=== PATIENT | male | born 1935 | race Caucasian/White ===

== ENCOUNTER 2017-12-20 11:39 | Emergency (ER) | payer MEDICARE ==
[2017-12-20 12:00] VITALS: RESP 18; TEMP 98.5; O2SAT 98
[2017-12-20] MEDS ORDERED: Sodium Chloride 0.9% 500 ML IV ONE (13:11)
[2017-12-20] MEDS ORDERED: Sodium Chloride 0.9% 1,000 ML ONE (13:27)
[2017-12-20 13:39] LABS: BASO % 0.5 % (0.0-2.0); EOS # 0.1 K/uL (0.0-0.7); EOS % 0.9 % (0.0-4.0); HEMOGLOBIN 13.2 g/dL (12.0-18.0); LYMPH # 0.5 K/uL (1.0-4.3); MEAN CELL VOLUME 85.7 fL (80.0-94.0); MEAN CORPUSCULAR HEMOGLOBIN 30.7 pg (27.0-31.0); MEAN CORPUSCULAR HGB CONC 35.8 g/dL (33.0-37.0); MEAN PLATELET VOLUME 8.9 fL (7.2-11.7); MONO # 0.5 K/uL (0.0-0.8); NEUT # 6.5 K/uL (1.8-7.0); NEUT % 84.6 % (50.0-75.0); NRBC % 0.1 % (0.0-2.0); PLATELET COUNT 140 K/uL (130-400); RBC 4.29 Mil/uL (4.40-5.90); RED CELL DISTRIBUTION WIDTH 14.3 % (11.5-14.5); WHITE BLOOD COUNT 7.6 K/uL (4.8-10.8)
[2017-12-20 13:44] LABS: SQUAMOUS EPITHIAL < 1 /hpf (0-5); URINE BILIRUBIN NEGATIVE (NEGATIVE); URINE BLOOD 2+ (NEGATIVE); URINE CLARITY Hazy (Clear); URINE COLOR Amber (YELLOW); URINE GLUCOSE (UA) 1+ mg/dL (Normal); URINE LEUKOCYTE ESTERASE NEG Leu/uL (Negative); URINE PROTEIN 1+ mg/dL (NEGATIVE)
[2017-12-20 13:55] LABS: ALB/GLOB RATIO 1.3 (1.0-2.1); ALBUMIN 3.7 g/dL (3.5-5.0); ALT/SGPT 30 U/L (21-72); AST/SGOT 19 U/L (17-59); BLOOD UREA NITROGEN 15 mg/dL (9-20); CALCIUM 8.6 mg/dl (8.6-10.4); GFR NON-AFRICAN AMERICAN > 60; LIPASE 29 U/L (23-300)
--- NOTE | 2017-12-20 14:21 | C.PDOC ---
History Of Present Illness 82-year-old male, presents to the emergency department with complaints of three- day duration of right-mid back pain that radiates to the right ribs . Patient denies any nausea/vomiting, fever, chills, chest pain, shortness of breath or any other associated symptoms. No other complaints at this time. Time Seen by Provider: 12/20/17 12:23 Chief Complaint (Nursing): Back Pain History Per: Patient History/Exam Limitations: no limitations Onset/Duration Of Symptoms: Days Current Symptoms Are (Timing): Still Present Severity: Moderate Associated Symptoms: denies: Incontinence, New Weakness, New Numbness Exacerbating Factor(s): Movement, Standing Recent travel outside of the [place]: No Past Medical History Reviewed: Historical Data, Nursing Documentation, Vital Signs Vital Signs: Last Vital Signs Temp 98.5 F 12/20/17 11:57 Pulse 91 H 12/20/17 11:57 Resp 18 12/20/17 11:57 BP 121/72 12/20/17 11:57 Pulse Ox 98 12/20/17 11:57 - Medical History PMH: Arthritis (bilateral knee/leg) Family History: States: No Known Family Hx - Social History Hx Alcohol Use: Yes Hx Substance Use: No - Immunization History Hx Tetanus Toxoid Vaccination: No Hx Influenza Vaccination: Yes Hx Pneumococcal Vaccination: No Review Of Systems Constitutional: Negative for: Fever, Chills Eyes: Negative for: Pain ENT: Negative for: Ear Pain Cardiovascular: Negative for: Chest Pain, Palpitations Respiratory: Negative for: Shortness of Breath Gastrointestinal: Negative for: Nausea, Vomiting, Abdominal Pain Genitourinary: Negative for: Dysuria, Frequency, Hematuria Musculoskeletal: Positive for: Back Pain Skin: Negative for: Rash Neurological: Negative for: Weakness, Numbness Physical Exam - Physical Exam Appears: Non-toxic, No Acute Distress Skin: Warm, Dry, No Rash Head: Atraumatic, Normacephalic Eye(s): bilateral: Normal Inspection, PERRL, EOMI Nose: Normal Oral Mucosa: Moist Lips: Normal Appearing Neck: Normal ROM, No Midline Cervical Tenderness, No Paracervical Tenderness Chest: Symmetrical, No Tenderness Cardiovascular: Rhythm Regular, No Friction Rub, No Murmur Respiratory: Normal Breath Sounds, No Accessory Muscle Use, No Stridor, No Wheezing Gastrointestinal/Abdominal: Soft, No Tenderness, No Guarding, No Rebound Back: No CVA Tenderness, No Vertebral Tenderness, Paraspinal Tenderness (right, lumbar) Extremity: Normal ROM, No Deformity, No Swelling Neurological/Psych: Oriented x3, Normal Speech, Normal Motor Gait: Steady ED Course And Treatment - Laboratory Results Result Diagrams: 12/20/17 13:26 12/20/17 13:26 O2 Sat by Pulse Oximetry: 98 Pulse Ox Interpretation: Normal (RA) Medical Decision Making Medical Decision Making: On re-exam, the patient reports improvement of symptoms. Lungs are CTA, heart is RRR, abdomen is soft, non-tender and tolerating PO well. Patient is ambulatory in the ED with steady gait. Disposition - Disposition Referrals: James Houston MD [Staff Provider] - Disposition: HOME/ ROUTINE Disposition Time: 15:00 Condition: GOOD Additional Instructions: Follow up with the medical doctor within 1-2 days. Return if worsened. Prescriptions: Acetaminophen [Tylenol] 325 mg PO Q6 PRN #30 tab PRN Reason: Pain, Mild (1-3) Instructions: Low Back Pain in Adults Forms: [employer] (Norwegian) - Clinical Impression Clinical Impression: Low back pain - Scribe Statement The provider has reviewed the documentation as recorded by the Scribe (Cristiana Carmona) All medical record entries made by the Scribe were at my direction and personally dictated by me. I have reviewed the chart and agree that the record accurately reflects my personal performance of the history, physical exam, medical decision making, and the department course for this patient. I have also personally directed, reviewed, and agree with the discharge instructions and disposition.
--- NOTE | 2017-12-20 14:28 | RAD ---
Date of service: 12/20/2017 HISTORY: epig/RUQ abd pain COMPARISON: No prior. FINDINGS: LUNGS: No active pulmonary disease. PLEURA: No significant pleural effusion identified, no pneumothorax apparent. CARDIOVASCULAR: Normal. OSSEOUS STRUCTURES: No significant abnormalities. VISUALIZED UPPER ABDOMEN: Normal. OTHER FINDINGS: None. IMPRESSION: No active disease.
--- NOTE | 2017-12-20 14:34 | US ---
Date of service: 12/20/2017 HISTORY: RUQ abd pain COMPARISON: None available. TECHNIQUE: Sonographic evaluation of the right upper quadrant of the abdomen. FINDINGS: Examination limited by bowel gas. LIVER: Measures 14.6 cm in length. Numerous hepatic cysts identified with the largest in the left hepatic lobe measuring approximately 1.9 cm and 2.5 cm and largest within the right hepatic lobe measuring 2.9 cm and 1.5 cm. The main portal vein appears patent with normal directional flow no intrahepatic bile duct dilatation. GALLBLADDER: No gallstones. No gallbladder wall thickening or pericholecystic edema. Negative sonographic Lopez's sign as assessed by the manager php. COMMON BILE DUCT: Measures 5 mm. PANCREAS: Not well-visualized. RIGHT KIDNEY: Measures 10.5 x 4.6 x 4.7 cm. Nonobstructing calculus measuring approximately 3 mm right mid/lower pole. AORTA: Limited visualization appears grossly unremarkable. IVC: Limited visualization appears grossly unremarkable. OTHER FINDINGS: None . IMPRESSION: Limited study. Numerous hepatic cysts as above. 3 mm right mid/lower pole calculus. No hydronephrosis.
[2017-12-20 14:59] LABS: BANDS 2 % (0-2); LYMPHOCYTE 6 % (20-40); MONOCYTE 3 % (0-10); NEUTROPHIL 89 % (50-75); TOTAL CELLS COUNTED 100
[2017-12-20 15:00] LABS: PLATELET ESTIMATE NORMAL (NORMAL)
[2017-12-20 15:34] VITALS: BP 124/83; PULSE 68
== END 2017-12-20 15:34 | disposition home or self-care (01) ==
LOC: C.ER 11:39
DX: M54.5 Low back pain (principal)
CPT/HCPCS: 71045; 76705; 80053; 81001; 83690; 85025; 87086; 96361; 96374; 99284; J2405; J7040

== ENCOUNTER 2018-03-25 08:18 | Inpatient (IN) | payer MEDICARE ==
--- NOTE | 2018-03-25 09:17 | RAD ---
Date of service: 03/25/2018 HISTORY: Cough COMPARISON: 12/20/2017. TECHNIQUE: Chest PA and lateral FINDINGS: LINES AND TUBES: None. LUNG AND PLEURA: There is airspace disease in the right upper. There is subsegmental atelectasis, mucous plugging and bronchial thickening in the right lower lobe. There is subsegmental atelectasis in the left lower lobe with bronchial thickening the lungs are hyperinflated and there is peribronchial thickening with chronic changes in both lungs. No pleural effusion or pneumothorax. HEART AND MEDIASTINUM: The heart is not enlarged. No aortic atherosclerotic calcifications present. The hilar and mediastinal contours are within normal limits. SKELETAL STRUCTURES: The bony structures are within normal limits for the patient's age. VISUALIZED UPPER ABDOMEN: Normal. OTHER FINDINGS: None. IMPRESSION: Right upper lobe pneumonia. Right lower lobe subsegmental atelectasis and mucous plugging however superimposed pneumonia cannot be excluded. Follow-up after medical management is recommended to ensure complete resolution. Background of COPD.
[2018-03-25] MEDS ORDERED: Azithromycin 500mg/250ML NS 500 MG/250 ML BAG IV STA (09:28)
[2018-03-25] MEDS ORDERED: cefTRIAXone IV 1 gm in Dextros 50 ML IV STA (09:28)
--- NOTE | 2018-03-25 10:04 | C.PDOC ---
History Of Present Illness 83 year old male with no past medical history presents to the ED for evaluation of nasal congestion, rhinorrhea, coughing, and generally not feeling well for 2 weeks. The patient reports prior PMD visit who prescribed cough syrup with no improvement in symptoms. Denies shortness of breath, fever, chills, and any other associated symptoms. Time Seen by Provider: 03/25/18 08:38 Chief Complaint (Nursing): Shortness Of Breath History Per: Patient History/Exam Limitations: no limitations Onset/Duration Of Symptoms: Days (x2 weeks. ) Current Symptoms Are (Timing): Still Present Recent travel outside of the [place]: No Past Medical History Reviewed: Historical Data, Nursing Documentation, Vital Signs Vital Signs: Last Vital Signs Temp 98 F 03/25/18 08:23 Pulse 118 H 03/25/18 08:23 Resp 23 03/25/18 08:56 BP Pulse Ox 95 03/25/18 08:56 - Medical History PMH: Arthritis (bilateral knee/leg) Family History: States: Unknown Family Hx - Social History Hx Alcohol Use: Yes Hx Substance Use: No - Immunization History Hx Tetanus Toxoid Vaccination: No Hx Influenza Vaccination: Yes Hx Pneumococcal Vaccination: No Review Of Systems Except As Marked, All Systems Reviewed And Found Negative. Constitutional: Positive for: Other (generally not feeling well. ). Negative for: Fever, Chills ENT: Positive for: Nose Discharge, Nose Congestion Respiratory: Positive for: Cough Physical Exam - Physical Exam Appears: Well, Non-toxic, No Acute Distress Skin: Normal Color, Warm, Dry Head: Atraumatic, Normacephalic Eye(s): bilateral: Normal Inspection Oral Mucosa: Moist Neck: Normal ROM, Supple Chest: Symmetrical, No Deformity Cardiovascular: Rhythm Regular, No Murmur Respiratory: Decreased Breath Sounds (greater on the right lung. ), No Rales, No Rhonchi, No Wheezing, Other ((+) tachycardia.) Gastrointestinal/Abdominal: Normal Exam, Soft, No Tenderness Extremity: Bilateral: Atraumatic, Normal Color And Temperature, Normal ROM Neurological/Psych: Oriented x3, Normal Speech, Normal Cognition ED Course And Treatment - Laboratory Results Result Diagrams: 03/25/18 10:07 03/25/18 10:07 O2 Sat by Pulse Oximetry: 95 (RA) Pulse Ox Interpretation: Normal - Other Rad CXR X-Ray: Viewed By Me, Read By Radiologist Interpretation: FINDINGS: LINES AND TUBES: None. LUNG AND PLEURA: There is airspace disease in the right upper. There is subsegmental atelectasis, mucous plugging and bronchial thickening in the right lower lobe. There is subsegmental atelectasis in the left lower lobe with bronchial thickening the lungs are hyperinflated and there is peribronchial thickening with chronic changes in both lungs. No pleural effusion or pneumothorax. HEART AND MEDIAS TINUM: The heart is not enlarged. No aortic atherosclerotic calcifications present. The hilar and mediastinal contours are within normal limits. SKELETAL STRUCTURES: The bony structures are within normal limits for the patient's age. VISUALIZED UPPER ABDOMEN: Normal. OTHER FINDINGS: None. IMPRESSION: Right upper lobe pneumonia. Right lower lobe subsegmental atelectasis and mucous plugging however superimposed pneumonia cannot be excluded. Follow-up after medical management is recommended to ensure complete resolution. Background of COPD. Medical Decision Making Medical Decision Making: Plan: -Blood sent. -CXR -Blood culture -Zithromax -Rocephin -Urinalysis Progress/Update: Treated for pneumonia, spoke with , patient was accepted for an admission. Disposition - Disposition Disposition: HOSPITALIZED Disposition Time: 10:50 Condition: FAIR - Clinical Impression Clinical Impression: Pneumonia - PA / APPRENTICE PLANT ATTENDANT / Resident Statement MD/DO has reviewed & agrees with the documentation as recorded. - Scribe Statement The provider has reviewed the documentation as recorded by the Scribe (Chio Bearden) All medical record entries made by the Scribe were at my direction and personally dictated by me. I have reviewed the chart and agree that the record accurately reflects my personal performance of the history, physical exam, medical decision making, and the department course for this patient. I have also personally directed, reviewed, and agree with the discharge instructions and disposition. Decision To Admit - Pt Status Changed To: Hospital Disposition Of: Inpatient - Admit Certification Admit to Inpatient:: After my assessment, the patient will require hospitalization for at least two midnights. This is because of the severity of symptoms shown, intensity of services needed, and/or the medical risk in this patient being treated as an outpatient. - InPatient: Physician Admission Certification: I certify that this patient requires 2 or more midnights of care for the following reason:: Patient will need morethan 2 days of IV antibiotics - . Bed Request Type: Regular Admitting Physician: James Houston Patient Diagnosis: Pneumonia
[2018-03-25] MEDS ORDERED: Azithromycin 500mg/250ML NS 500 MG/250 ML BAG IVPB ONE (10:09)
[2018-03-25 10:15] LABS: BASO % 0.2 % (0.0-2.0); EOS % 0.1 % (0.0-4.0); HEMOGLOBIN 13.7 g/dL (12.0-18.0); LYMPH # 0.6 K/uL (1.0-4.3); LYMPH % 5.9 % (20.0-40.0); MEAN CELL VOLUME 87.1 fL (80.0-94.0); MEAN CORPUSCULAR HEMOGLOBIN 30.6 pg (27.0-31.0); MEAN CORPUSCULAR HGB CONC 35.2 g/dL (33.0-37.0); MEAN PLATELET VOLUME 9.5 fL (7.2-11.7); MONO # 0.8 K/uL (0.0-0.8); MONO % 8.7 % (0.0-10.0); NEUT # 8.3 K/uL (1.8-7.0); NEUT % 85.1 % (50.0-75.0); NRBC % 0.1 % (0.0-2.0); RBC 4.47 Mil/uL (4.40-5.90); RED CELL DISTRIBUTION WIDTH 13.7 % (11.5-14.5); WHITE BLOOD COUNT 9.7 K/uL (4.8-10.8)
[2018-03-25 10:23] LABS: PLATELET COUNT 270 K/uL (130-400)
[2018-03-25 10:29] LABS: URINE BACTERIA RARE (<OCC); URINE BILIRUBIN NEGATIVE (NEGATIVE); URINE BLOOD 1+ (NEGATIVE); URINE CLARITY Clear (Clear); URINE COLOR Amber (YELLOW); URINE GLUCOSE (UA) NORMAL (Normal); URINE LEUKOCYTE ESTERASE NEG Leu/uL (Negative); URINE PROTEIN 1+ mg/dL (NEGATIVE)
[2018-03-25 10:42] LABS: ALB/GLOB RATIO 1.2 (1.0-2.1); ALT/SGPT 71 U/L (21-72); AST/SGOT 67 U/L (17-59); BLOOD UREA NITROGEN 10 mg/dL (9-20); CALCIUM 8.9 mg/dl (8.6-10.4); GFR NON-AFRICAN AMERICAN > 60
[2018-03-25 11:13] LABS: LYMPHOCYTE 5 % (20-40); MONOCYTE 8 % (0-10); NEUTROPHIL 87 % (50-75); PLATELET ESTIMATE NORMAL (NORMAL); TOTAL CELLS COUNTED 100
[2018-03-25] MEDS ORDERED: Albuterol-Ipratrop 3 mg / 0.5 (3 ml) UD ONE (14:16)
[2018-03-25] MEDS: Albuterol-Ipratrop 3 mg / 0.5 (3 ml) UD INH SCH (15:02)
--- NOTE | 2018-03-25 16:20 | CP.PCM.CON ---
History of Present Illness - History of Present Illness History of Present Illness: reason for consultation: shortness of breath and cough 83-year-old male with no significant past medical history presented to emergency room complaining of cough, shortness of breath, rhinorrhea and nasal congestion for the past 2 weeks. Patient treated with cough medicine as outpatient without any relief. Denies nausea vomiting, denies diarrhea constipation. Review of Systems - Review of Systems All systems: reviewed and no additional remarkable complaints except (cough, nasal congestion and shortness of breath) Past Patient History - Infectious Disease Hx of Infectious Diseases: None - Past Social History Smoking Status: Never Smoked - MUSCULOSKELETAL/RHEUMATOLOGICAL Hx Arthritis: Yes (bilateral knee/leg) - PSYCHIATRIC Hx Substance Use: No - SURGICAL HISTORY Hx Surgeries: No - ANESTHESIA Hx Anesthesia: No Meds Allergies/Adverse Reactions: Allergies Allergy/AdvReac Type Severity Reaction Status Date / Time No Known Allergies Allergy Verified 03/25/18 08:21 - Medications Medications: Current Medications Acetaminophen (Tylenol 325mg Tab) 650 mg PO Q6 PRN PRN Reason: Pain, moderate (4-7) Albuterol/Ipratropium (Duoneb 3 Mg/0.5 Mg (3 Ml) Ud) 3 ml INH RQ6 ANNELIESE Last Admin: 03/25/18 15:02 Dose: 3 ml Enoxaparin Sodium (Lovenox) 40 mg SC DAILY ANNELIESE Guaifenesin (Robitussin) 200 mg PO Q4H PRN PRN Reason: Cough and congestion Ceftriaxone Sodium 1 gm/ (Sodium Chloride) 100 mls @ 100 mls/hr IVPB DAILY ANNELIESE; Protocol Azithromycin (Zithromax 500mg In Ns Addvantage) 500 mg in 250 mls @ 167 mls/hr IVPB Q24H ANNELIESE; Protocol Pantoprazole Sodium (Protonix Ec Tab) 40 mg PO DAILY ANNELIESE Physical Exam - Head Exam Head Exam: ATRAUMATIC, NORMOCEPHALIC - ENT Exam ENT Exam: Mucous Membranes Moist - Neck Exam Neck exam: Positive for: Normal Inspection - Respiratory Exam Respiratory Exam: Rales - Cardiovascular Exam Cardiovascular Exam: REGULAR RHYTHM - GI/Abdominal Exam GI & Abdominal Exam: Normal Bowel Sounds, Soft - Extremities Exam Extremities exam: Positive for: normal inspection - Neurological Exam Neurological exam: Alert, Oriented x3 Results - Vital Signs Recent Vital Signs: Last Vital Signs Temp 98.3 F 03/25/18 15:55 Pulse 91 H 03/25/18 15:55 Resp 23 03/25/18 15:55 BP 114/57 L 03/25/18 15:55 Pulse Ox 97 03/25/18 15:55 - Labs Result Diagrams: 03/25/18 10:07 03/25/18 10:07 Labs: Laboratory Results - last 24 hr 03/25/18 03/25/18 03/25/18 10:07 10:07 10:07 WBC 9.7 RBC 4.47 Hgb 13.7 Hct 38.9 MCV 87.1 MCH 30.6 MCHC 35.2 RDW 13.7 Plt Count 270 D MPV 9.5 Neut % (Auto) 85.1 H Lymph % (Auto) 5.9 L Mckenzie % (Auto) 8.7 Eos % (Auto) 0.1 Baso % (Auto) 0.2 Neut # (Auto) 8.3 H Lymph # (Auto) 0.6 L Mckenzie # (Auto) 0.8 Eos # (Auto) 0.0 Baso # (Auto) 0.0 Neutrophils % (Manual) 87 H Lymphocytes % (Manual) 5 L Monocytes % (Manual) 8 Platelet Estimate Normal RBC Morphology Normal Sodium 138 Potassium 3.7 Chloride 103 Carbon Dioxide 26 Anion Gap 12 BUN 10 Creatinine 0.7 L Est GFR ( Amer) > 60 Est GFR (Non-Af Amer) > 60 Random Glucose 172 H D Calcium 8.9 Total Bilirubin 1.5 H AST 67 H D ALT 71 Alkaline Phosphatase 80 Total Protein 7.4 Albumin 4.0 Globulin 3.4 Albumin/Globulin Ratio 1.2 Urine Color Evelyn Urine Clarity Clear Urine pH 5.0 Ur Specific [place] 1.024 Urine Protein 1+ H Urine Glucose (UA) Normal Urine Ketones Negative Urine Blood 1+ H Urine Nitrate Negative Urine Bilirubin Negative Urine Urobilinogen 4.0 Ur Leukocyte Esterase Neg Urine WBC (Auto) 8 H Urine RBC (Auto) 5 H Urine Bacteria Rare Assessment & Plan (1) Pneumonia Status: Acute Comment: right lung pneumonia. Continue antibiotics. Legionella mycoplasma titer. Followup culture and sensitivity
[2018-03-25] MEDS: guaiFENesin 200 mg/10 ml Syrup UD PO PRN (21:10)
[2018-03-26] MEDS: Albuterol-Ipratrop 3 mg / 0.5 (3 ml) UD INH SCH ×3 (08:28→19:42)
[2018-03-26] MEDS: Enoxaparin 40 mg Syringe SC SCH (09:26)
[2018-03-26] MEDS: Pantoprazole 40 mg EC Tab PO SCH (09:27)
[2018-03-26] MEDS: guaiFENesin 200 mg/10 ml Syrup UD PO PRN ×3 (09:55→21:32)
[2018-03-26] MEDS ORDERED: Azithromycin 500mg/250ML NS 500 MG/250 ML BAG IVPB SCH (10:00)
[2018-03-26] MEDS: Azithromycin 500mg/250ML NS 500 MG/250 ML BAG IVPB SCH (13:54)
--- NOTE | 2018-03-26 21:35 | CP.PCM.PN ---
Subjective - Date & Time of Evaluation Date of Evaluation: 03/26/18 Time of Evaluation: 21:35 - Subjective Subjective: Pulmonary note The Patient was seen and examined at the bedside, Medical records reviewed, and management issues were discussed and formulated with the house staff. Events reviewed Mr Weeks is a 83 years old male with PMHx of Arthritis (bilateral knee/leg) Who presented to the ER for shortness of breath, cough, rhinorrhea and nasal congestion for the past 2 weeks. Patient treated with cough medicine as outpatient without any relief. Denies fever/chills, chest pain IMPRESSION: Right upper lobe pneumonia. Right lower lobe subsegmental atelectasis and mucous plugging however superimposed pneumonia cannot be exc luded. Admitted with pneumonia, started on Antibiotics Doing better, comfortable, in no distress Breathing and cough much improved Afebrile Saturation 96-99% on 2L nasal cannula No fever/chills No chhest pain Objective - Vital Signs/Intake and Output Vital Signs (last 24 hours): Temp Pulse Resp BP Pulse Ox 98.4 F 89 20 113/51 L 96 03/26/18 16:00 03/26/18 16:00 03/26/18 16:00 03/26/18 16:00 03/26/18 16:00 Intake and Output: 03/26/18 03/27/18 18:59 06:59 Intake Total 850 Balance 850 - Medications Medications: Current Medications Acetaminophen (Tylenol 325mg Tab) 650 mg PO Q6 PRN PRN Reason: Pain, moderate (4-7) Last Admin: 03/26/18 21:21 Dose: 650 mg Albuterol/Ipratropium (Duoneb 3 Mg/0.5 Mg (3 Ml) Ud) 3 ml INH RQ6 ANNELIESE Last Admin: 03/26/18 19:42 Dose: 3 ml Enoxaparin Sodium (Lovenox) 40 mg SC DAILY ANNELIESE Last Admin: 03/26/18 09:26 Dose: 40 mg Gabapentin (Neurontin) 300 mg PO HS ANNELIESE Last Admin: 03/26/18 21:21 Dose: 300 mg Guaifenesin (Robitussin) 200 mg PO Q4H PRN PRN Reason: Cough and congestion Last Admin: 03/26/18 21:32 Dose: 200 mg Ceftriaxone Sodium 1 gm/ (Sodium Chloride) 100 mls @ 100 mls/hr IVPB DAILY ANNELIESE; Protocol Last Admin: 03/26/18 09:55 Dose: 100 mls/hr Azithromycin (Zithromax 500mg In Ns Addvantage) 500 mg in 250 mls @ 167 mls/hr IVPB Q24H ANNELIESE; Protocol Last Admin: 03/26/18 13:54 Dose: 167 mls/hr Pantoprazole Sodium (Protonix Ec Tab) 40 mg PO DAILY [facility] Last Admin: 03/26/18 09:27 Dose: 40 mg Pramipexole Dihydrochloride (Mirapex) 1 mg PO HS ANNELIESE Last Admin: 03/26/18 21:21 Dose: 1 mg - Labs Labs: 03/25/18 10:07 03/25/18 10:07 - Constitutional Appears: Well, Non-toxic - Head Exam Head Exam: ATRAUMATIC, NORMAL INSPECTION, NORMOCEPHALIC - Eye Exam Eye Exam: EOMI, Normal appearance. absent: Conjunctival injection Pupil Exam: NORMAL ACCOMODATION, PERRL. absent: Fixed, Irregular - ENT Exam ENT Exam: Mucous Membranes Dry. absent: Mucous Membranes Moist - Neck Exam Neck Exam: Full ROM, Normal Inspection. absent: Lymphadenopathy, Meningismus, Tenderness, Thyromegaly - Respiratory Exam Respiratory Exam: Decreased Breath Sounds, Rales, Rhonchi. absent: Accessory Muscle Use, Chest Wall Tenderness, Clear to Ausculation Bilateral, Wheezes, Respiratory Distress - Cardiovascular Exam Cardiovascular Exam: REGULAR RHYTHM, RRR, +S1, +S2. absent: Bradycardia, Tachycardia, JVD - GI/Abdominal Exam GI & Abdominal Exam: Soft, Normal Bowel Sounds. absent: Tenderness - Extremities Exam Extremities Exam: absent: Calf Tenderness - Back Exam Back Exam: absent: CVA tenderness (L), CVA tenderness (R) - Neurological Exam Neurological Exam: Alert, Awake Assessment and Plan (1) Pneumonia Status: Acute (2) Atelectasis Status: Acute (3) Dyspnea Status: Acute (4) Low back pain Status: Acute - Assessment and Plan (Free Text) Assessment: Continue antibiotics with Ceftriaxone Sodium 1 gm IVPB DAILY and Azithromycin 500mg IVPB Q24H Pantoprazole Sodium (Protonix Ec Tab) 40 mg PO DAILY [facility] Check urine legionella and pneumococcus/strep antigen Followup culture and sensitivity supplemental O2 keep SaO2 >94%
--- NOTE | 2018-03-26 22:21 | CP.PCM.HP ---
Present on Admission - Present on Admission Any Indicators Present on Admission: No Past Patient History - Infectious Disease Hx of Infectious Diseases: None - Past Medical History & Family History Past Medical History?: Yes - Past Social History Smoking Status: Never Smoked - MUSCULOSKELETAL/RHEUMATOLOGICAL Hx Falls: No - PSYCHIATRIC Hx Substance Use: No - SURGICAL HISTORY Hx Surgeries: No - ANESTHESIA Hx Anesthesia: No Meds Allergies/Adverse Reactions: Allergies Allergy/AdvReac Type Severity Reaction Status Date / Time No Known Allergies Allergy Verified 03/25/18 08:21 Results - Vital Signs Recent Vital Signs: Last Vital Signs Temp 98.4 F 03/26/18 16:00 Pulse 89 03/26/18 16:00 Resp 20 03/26/18 16:00 BP 113/51 L 03/26/18 16:00 Pulse Ox 96 03/26/18 16:00 - Labs Result Diagrams: 04/03/18 11:30 04/03/18 11:30
[2018-03-27] MEDS: Albuterol-Ipratrop 3 mg / 0.5 (3 ml) UD INH SCH ×3 (08:17→21:05)
[2018-03-27] MEDS: Pantoprazole 40 mg EC Tab PO SCH (09:40)
[2018-03-27] MEDS: Enoxaparin 40 mg Syringe SC SCH (09:40)
--- NOTE | 2018-03-27 10:47 | HP ---
CHIEF COMPLAINT: Shortness of breath, cold and cough x2 weeks. HISTORY OF PRESENT ILLNESS: This is an 83-year-old male with history of restless leg syndrome, hypertension who is compliant with his diet, medication and followup and for two weeks, he has been having cough, congestion, shortness of breath, and wheezing. He took some cough syrup on an outpatient basis. He has fever, chills, rigors. He has chest pain, chest congestion, and he has deep cough with thick yellow sputum production, inability to bring up the phlegm. He denies any pleurisy. He denies any nausea, vomiting, or diarrhea. He denies any abdominal pain. He denies any polyuria, polydipsia, or polyphagia. He denies any sneezing or rhinorrhea. He denies any itchy eyes, itchy nose. There is no history of trauma, fall, or loss of consciousness. No history of seizure-like activity. He gets a lot of leg movements at nighttime and he has to constantly move his legs in order to avoid pain in his legs. There is no history of trauma, fall, or loss of consciousness. SOCIAL HISTORY: Nonsmoker, non-ETOH user. CURRENT MEDICATIONS: At home, he takes Mirapex and he takes gabapentin. ALLERGIES: UNKNOWN. FAMILY HISTORY: His brother of COPD. PHYSICAL EXAMINATION: GENERAL: An elderly male, in distress with chest pain and congestion. VITAL SIGNS: Blood pressure 113/51, pulse 89, respiratory rate 20, and temperature 98.4. SKIN: No bruises. No purpura. The patient has vitiligo, extensive. HEENT: Atraumatic and normocephalic. Negative pallor. Negative jaundice. Extraocular movements are intact. NECK: Supple. No JVD. No lymph node. No thyromegaly. No carotid bruit. CHEST WALL: Bilateral symmetrical expansion. No masses. LUNGS: Bilateral inspiratory and expiratory rhonchi. Decreased air entry. CVS: PMI in the fifth intercostal space. S1 and S2, regular. ABDOMEN: Soft and nontender. Bowel sounds are positive. RECTAL: Enlarged prostate. EXTREMITIES: No clubbing, cyanosis, or edema. COPY CUTTER: Awake, alert, and oriented x3. Cranial nerves II through XII are normal. Power 5/5 x4. Plantars are downgoing. ASSESSMENT: 1. Rule out pneumonia. 2. Rule out exacerbation of asthma. 3. Restless leg syndrome. PLAN: Admit. Detailed orders are written. Seen and examined. James Houston MD
[2018-03-27] MEDS: Azithromycin 500mg/250ML NS 500 MG/250 ML BAG IVPB SCH (11:57)
--- NOTE | 2018-03-27 14:03 | CP.PCM.CON ---
<AubreyRaza - Last Filed: 03/27/18 17:57> History of Present Illness - History of Present Illness History of Present Illness: Dr. Dodge-Cardiology Service 83 year old male with no pertinent past medical history presents to the hospital for shortness of breath in association with cough for the past two weeks. Patient also reports white phlegm in conjunction with the presenting symptoms. Patient does admit to taking cough medicine to help with his symptoms. After a couple of taking the medicine he decided to come in when he didn't see any improvement. Patient denies any chest pain, fevers, chills, nausea, vomiting, abdominal pain, headaches, dizziness, syncopal episodes, or any other complaints. PMD: Dr. Houston Medical history: denies Allergies: Denies Social history: Social drinker. Denies illicit drug use Medications: Denies Review of Systems - Constitutional Constitutional: absent: Excessive Sweating, Night Sweats, Snoring - EENT Eyes: absent: Decreased Night Vision, Loss of Peripheral Vision, Tunnel Vision Ears: absent: Tinnitus, Abnormal Hearing Nose/Mouth/Throat: absent: Nasal Discharge, Nasal Obstruction, Change in Voice, Mouth Pain - Cardiovascular Cardiovascular: absent: Chest Pain, Chest Pain at Rest, Edema, Irregular Heart Rhythm, Orthopnea, Palpitations - Respiratory Respiratory: Cough, Chest Congestion. absent: Hemoptysis, Dyspnea on Exertion, Wheezing - Gastrointestinal Gastrointestinal: absent: Bloating, Cramping, Dyspepsia, Hematochezia - Genitourinary Genitourinary: absent: Difficulty Urinating, Urinary Hesitance, Bladder Distensi on - Musculoskeletal Musculoskeletal: absent: Atrophy, Back Pain, Muscle Weakness, Myalgias - Integumentary Integumentary: absent: Change in Hair, Hirsutism, Skin Ulcer - Neurological Neurological: absent: Abnormal Movements, Dizziness, Memory Loss, Vertigo, Weakness - Psychiatric Psychiatric: absent: Anxiety, Depression, Tactile Hallucinations - Endocrine Endocrine: absent: Change in Libido Past Patient History - Infectious Disease Hx of Infectious Diseases: None - Past Medical History & Family History Past Medical History?: Yes - Past Social History Smoking Status: Never Smoked - MUSCULOSKELETAL/RHEUMATOLOGICAL Hx Falls: No - PSYCHIATRIC Hx Substance Use: No - SURGICAL HISTORY Hx Surgeries: No - ANESTHESIA Hx Anesthesia: No Meds Allergies/Adverse Reactions: Allergies Allergy/AdvReac Type Severity Reaction Status Date / Time No Known Allergies Allergy Verified 03/25/18 08:21 - Medications Medications: Current Medications Acetaminophen (Tylenol 325mg Tab) 650 mg PO Q6 PRN PRN Reason: Pain, moderate (4-7) Last Admin: 03/26/18 21:21 Dose: 650 mg Albuterol/Ipratropium (Duoneb 3 Mg/0.5 Mg (3 Ml) Ud) 3 ml INH RQ6 [facility] Last Admin: 03/27/18 13:59 Dose: 3 ml Enoxaparin Sodium (Lovenox) 40 mg SC DAILY [facility] Last Admin: 03/27/18 09:40 Dose: 40 mg Gabapentin (Neurontin) 300 mg PO HS [facility] Last Admin: 03/26/18 21:21 Dose: 300 mg Guaifenesin (Robitussin) 200 mg PO Q4H PRN PRN Reason: Cough and congestion Last Admin: 03/26/18 21:32 Dose: 200 mg Ceftriaxone Sodium 1 gm/ (Sodium Chloride) 100 mls @ 100 mls/hr IVPB DAILY [facility]; Protocol Last Admin: 03/27/18 09:50 Dose: 100 mls/hr Azithromycin (Zithromax 500mg In Ns Addvantage) 500 mg in 250 mls @ 167 mls/hr IVPB Q24H [facility]; Protocol Last Admin: 03/27/18 11:57 Dose: 167 mls/hr Pantoprazole Sodium (Protonix Ec Tab) 40 mg PO DAILY [facility] Last Admin: 03/27/18 09:40 Dose: 40 mg Pramipexole Dihydrochloride (Mirapex) 1 mg PO HS [facility] Last Admin: 03/26/18 21:21 Dose: 1 mg Physical Exam - Head Exam Head Exam: ATRAUMATIC, NORMAL INSPECTION - Eye Exam Eye Exam: EOMI, Normal appearance Pupil Exam: NORMAL ACCOMODATION, PERRL - ENT Exam ENT Exam: Mucous Membranes Moist, Normal Exam - Neck Exam Neck exam: Positive for: Normal Inspection. Negative for: Meningismus - Respiratory Exam Respiratory Exam: Rhonchi, NORMAL BREATHING PATTERN. absent: Chest Wall Tenderness, Clear to Auscultation Bilateral, Wheezes, Respiratory Distress - Cardiovascular Exam Cardiovascular Exam: REGULAR RHYTHM, +S1, +S2 - GI/Abdominal Exam GI & Abdominal Exam: Normal Bowel Sounds, Soft. absent: Hyperactive Bowel Sounds, Rigid - Neurological Exam Neurological exam: Alert, CN II-XII Intact, Oriented x3 - Psychiatric Exam Psychiatric exam: Normal Affect, Normal Mood - Skin Skin Exam: Dry, Intact, Normal Color Results - Vital Signs Recent Vital Signs: Last Vital Signs Temp 97.9 F 03/27/18 07:59 Pulse 77 03/27/18 07:59 Resp 20 03/27/18 07:59 BP 108/62 03/27/18 07:59 Pulse Ox 96 03/27/18 07:59 - Labs Result Diagrams: 03/25/18 10:07 03/25/18 10:07 Labs: Laboratory Results - last 24 hr 03/27/18 07:01 NT-Pro-B Natriuret Pep 293 Assessment & Plan - Assessment and Plan (Free Text) Assessment: 83 year old male with no pertinent past medical history presents with shortness of breath in conjunction with cough for the past couple of weeks. Plan: 1.Pneumonia Chest xray: Right upper lobe pneumonia. Right lower lobe subsegmemntal atelecta sis and mucous plugging. Pulmonary consulted. Help appreciated. Medications: Acetaminophen 650mg PO Q6 PRN Rocephin 1gm IVPB Daily Duoneb 3ml INH RQ6 Robitussin 200mg PO Q4H PRN Azithromycin 500mg IVPB Q24H 2.Shortness of breath. bnp 293 Echo ordered. Will f/u with results. Cardiology consulted. Help appreciated. PPX -Lovenox -Protonix Plan discussed with Attending Dr. Dodge. Raza Burgos, PGY-2 <Bartolo Dodge - Last Filed: 03/28/18 08:41> Meds - Medications Medications: Current Medications Acetaminophen (Tylenol 325mg Tab) 650 mg PO Q6 PRN PRN Reason: Pain, moderate (4-7) Last Admin: 03/26/18 21:21 Dose: 650 mg Albuterol/Ipratropium (Duoneb 3 Mg/0.5 Mg (3 Ml) Ud) 3 ml INH RQ6 [facility] Last Admin: 03/28/18 07:30 Dose: 3 ml Enoxaparin Sodium (Lovenox) 40 mg SC DAILY [facility] Last Admin: 03/27/18 09:40 Dose: 40 mg Gabapentin (Neurontin) 300 mg PO HS [facility] Last Admin: 03/27/18 21:38 Dose: 300 mg Guaifenesin (Robitussin) 200 mg PO Q4H PRN PRN Reason: Cough and congestion Last Admin: 03/28/18 03:00 Dose: 200 mg Ceftriaxone Sodium 1 gm/ (Sodium Chloride) 100 mls @ 100 mls/hr IVPB DAILY [facility]; Protocol Last Admin: 03/27/18 09:50 Dose: 100 mls/hr Azithromycin (Zithromax 500mg In Ns Addvantage) 500 mg in 250 mls @ 167 mls/hr IVPB Q24H [facility]; Protocol Last Admin: 03/27/18 11:57 Dose: 167 mls/hr Pantoprazole Sodium (Protonix Ec Tab) 40 mg PO DAILY [facility] Last Admin: 03/27/18 09:40 Dose: 40 mg Pramipexole Dihydrochloride (Mirapex) 1 mg PO HS [facility] Last Admin: 03/27/18 21:38 Dose: 1 mg Results - Vital Signs Recent Vital Signs: Last Vital Signs Temp 98.1 F 03/28/18 06:00 Pulse 84 03/27/18 23:14 Resp 20 03/27/18 23:14 BP 106/64 03/27/18 23:14 Pulse Ox 98 03/27/18 23:14 - Labs Result Diagrams: 03/25/18 10:07 03/25/18 10:07 Assessment & Plan - Assessment and Plan (Free Text) Plan: Patient seen and personally evaluated by me. Plan of care d/w the Resident and as documented
[2018-03-27] MEDS: guaiFENesin 200 mg/10 ml Syrup UD PO PRN ×2 (15:16→21:47)
--- NOTE | 2018-03-27 16:55 | CP.PCM.PN ---
Subjective - Date & Time of Evaluation Date of Evaluation: 03/27/18 Time of Evaluation: 10:00 - Subjective Subjective: patient seen and examined Still complaining off shortness of breath and cough cough is producing the day and at night Afebrile Being treated for pneumonia Objective - Vital Signs/Intake and Output Vital Signs (last 24 hours): Temp Pulse Resp BP Pulse Ox 97.9 F 77 20 108/62 96 03/27/18 07:59 03/27/18 07:59 03/27/18 07:59 03/27/18 07:59 03/27/18 07:59 Intake and Output: 03/27/18 03/27/18 06:59 18:59 Intake Total 1030 Balance 1030 - Medications Medications: Current Medications Acetaminophen (Tylenol 325mg Tab) 650 mg PO Q6 PRN PRN Reason: Pain, moderate (4-7) Last Admin: 03/26/18 21:21 Dose: 650 mg Albuterol/Ipratropium (Duoneb 3 Mg/0.5 Mg (3 Ml) Ud) 3 ml INH RQ6 [facility] Last Admin: 03/27/18 13:59 Dose: 3 ml Enoxaparin Sodium (Lovenox) 40 mg SC DAILY [facility] Last Admin: 03/27/18 09:40 Dose: 40 mg Gabapentin (Neurontin) 300 mg PO HS [facility] Last Admin: 03/26/18 21:21 Dose: 300 mg Guaifenesin (Robitussin) 200 mg PO Q4H PRN PRN Reason: Cough and congestion Last Admin: 03/27/18 15:16 Dose: 200 mg Ceftriaxone Sodium 1 gm/ (Sodium Chloride) 100 mls @ 100 mls/hr IVPB DAILY [facility]; Protocol Last Admin: 03/27/18 09:50 Dose: 100 mls/hr Azithromycin (Zithromax 500mg In Ns Addvantage) 500 mg in 250 mls @ 167 mls/hr IVPB Q24H [facility]; Protocol Last Admin: 03/27/18 11:57 Dose: 167 mls/hr Pantoprazole Sodium (Protonix Ec Tab) 40 mg PO DAILY [facility] Last Admin: 03/27/18 09:40 Dose: 40 mg Pramipexole Dihydrochloride (Mirapex) 1 mg PO HS [facility] Last Admin: 03/26/18 21:21 Dose: 1 mg - Labs Labs: 03/25/18 10:07 03/25/18 10:07 - Head Exam Head Exam: ATRAUMATIC, NORMOCEPHALIC - ENT Exam ENT Exam: Mucous Membranes Moist - Neck Exam Neck Exam: Normal Inspection - Respiratory Exam Respiratory Exam: Rales - Cardiovascular Exam Cardiovascular Exam: REGULAR RHYTHM - GI/Abdominal Exam GI & Abdominal Exam: Soft, Normal Bowel Sounds - Extremities Exam Extremities Exam: Normal Inspection - Neurological Exam Neurological Exam: Awake Assessment and Plan (1) Pneumonia Assessment & Plan: continue IV antibiotics Nebulizer treatment Followup culture and sensitivity Antitussive Status: Acute
--- NOTE | 2018-03-27 22:33 | CARD ---
APPROVED REPORT Date of service: 03/27/2018 EXAM: Two-dimensional and M-mode echocardiogram with Doppler and color Doppler. Other Information Quality : GoodRhythm : INDICATION Dyspnea 2D DIMENSIONS IVSd0.8 (0.7-1.1cm)LVDd4.1 (3.9-5.9cm) PWd0.9 (0.7-1.1cm)LA [id number] (18-58mL) LVDs2.8 (2.5-4.0cm)FS (%) 31.9 % LVEF (%)60.5 (>50%)LVEF (Olivares's)66.53 % M-Mode DIMENSIONS Left Atrium (MM)3.90 (2.5-4.0cm)IVSd0.66 (0.7-1.1cm) Aortic Root3.67 (2.2-3.7cm)LVDd4.86 (4.0-5.6cm) Aortic Cusp Exc.2.05 (1.5-2.0cm)PWd0.82 (0.7-1.1cm) FS (%) 34 %LVDs3.20 (2.0-3.8cm) LVEF (%)63 (>50%) Mitral Valve MV E Fvobzcoi90.3cm/sMV A Itymqxnj577.5cm/sE/A ratio0.7 TDI Lateral E' Peak V8.42cm/sMedial E' Peak V8.68cm/sE/Lateral E'9.4 E/Medial E'9.1 Tricuspid Valve TR Peak Zufkkfch264ax/sTR Peak Gr.[id number] LEFT VENTRICLE The left ventricle is normal size. There is normal left ventricular wall thickness. Left ventricle systolic function is normal.The Ejection Fraction is 60-65%. There is normal LV segmental wall motion. Transmitral Doppler flow pattern is abnormal.Grade I-abnormal relaxation pattern. No left ventricle thrombus noted on this study. RIGHT VENTRICLE The right ventricle is mildly dilated. The right ventricular systolic function is normal. ATRIA The left atrium size is normal. The right atrium size is normal. AORTIC VALVE The aortic valve is mildly sclerotic. The aortic valve is trileaflet. No aortic regurgitation is present. There is no aortic valvular stenosis. There is no aortic valvular vegetation. MITRAL VALVE Mitral annular calcification is mild. There is no evidence of mitral valve prolapse. There is no mitral valve stenosis. Mitral regurgitation is mild. TRICUSPID VALVE The tricuspid valve is normal in structure. There is mild to moderate tricuspid regurgitation. Right ventricular systolic pressure is estimated at 40-50 mmHg. There is mild pulmonary hypertension. There is no tricuspid valve prolapse or vegetation. There is no tricuspid valve stenosis. PULMONIC VALVE The pulmonic valve is not well visualized. There is trace to mild pulmonic valvular regurgitation. GREAT VESSELS The aortic root is normal in size. The IVC is normal in size and collapses >50% with inspiration. PERICARDIAL EFFUSION There is no pericardial effusion. There is no pleural effusion. <Conclusion> The left ventricle is normal size. Left ventricle systolic function is normal.The Ejection Fraction is 60-65%. Transmitral Doppler flow pattern is abnormal.Grade I-abnormal relaxation pattern. The left atrium size is normal. The right atrium size is normal. Mitral regurgitation is mild. There is mild to moderate tricuspid regurgitation. There is mild pulmonary hypertension. There is trace to mild pulmonic valvular regurgitation.
--- NOTE | 2018-03-27 22:42 | CP.PCM.PN ---
Subjective - Subjective Subjective: dictated Objective - Vital Signs/Intake and Output Vital Signs (last 24 hours): Temp Pulse Resp BP Pulse Ox 99.2 F 88 20 109/57 L 93 L 03/27/18 16:49 03/27/18 16:49 03/27/18 16:49 03/27/18 16:49 03/27/18 16:49 Intake and Output: 03/27/18 03/28/18 18:59 06:59 Intake Total 1030 Balance 1030 - Medications Medications: Current Medications Acetaminophen (Tylenol 325mg Tab) 650 mg PO Q6 PRN PRN Reason: Pain, moderate (4-7) Last Admin: 03/26/18 21:21 Dose: 650 mg Albuterol/Ipratropium (Duoneb 3 Mg/0.5 Mg (3 Ml) Ud) 3 ml INH RQ6 [facility] Last Admin: 03/27/18 21:05 Dose: 3 ml Enoxaparin Sodium (Lovenox) 40 mg SC DAILY [facility] Last Admin: 03/27/18 09:40 Dose: 40 mg Gabapentin (Neurontin) 300 mg PO HS [facility] Last Admin: 03/27/18 21:38 Dose: 300 mg Guaifenesin (Robitussin) 200 mg PO Q4H PRN PRN Reason: Cough and congestion Last Admin: 03/27/18 21:47 Dose: 200 mg Ceftriaxone Sodium 1 gm/ (Sodium Chloride) 100 mls @ 100 mls/hr IVPB DAILY [facility]; Protocol Last Admin: 03/27/18 09:50 Dose: 100 mls/hr Azithromycin (Zithromax 500mg In Ns Addvantage) 500 mg in 250 mls @ 167 mls/hr IVPB Q24H [facility]; Protocol Last Admin: 03/27/18 11:57 Dose: 167 mls/hr Pantoprazole Sodium (Protonix Ec Tab) 40 mg PO DAILY [facility] Last Admin: 03/27/18 09:40 Dose: 40 mg Pramipexole Dihydrochloride (Mirapex) 1 mg PO HS [facility] Last Admin: 03/27/18 21:38 Dose: 1 mg - Labs Labs: 03/25/18 10:07 03/25/18 10:07
[2018-03-28] MEDS: Albuterol-Ipratrop 3 mg / 0.5 (3 ml) UD INH SCH ×4 (01:44→19:50)
[2018-03-28] MEDS: guaiFENesin 200 mg/10 ml Syrup UD PO PRN ×2 (03:00→21:00)
--- NOTE | 2018-03-28 03:13 | PN ---
DATE: 03/27/2018 SUBJECTIVE: The patient, Micky, has less cough, less shortness of breath, afebrile. PHYSICAL EXAMINATION: VITAL SIGNS: Blood pressure 109/57, pulse 88, respiratory rate 20, temperature 99.2. LUNGS: Bilateral scattered rhonchi. CARDIOVASCULAR SYSTEM: S1, S2, regular. ABDOMEN: Soft. ASSESSMENT: 1. Pneumonia. 2. Dehydration. 3. Restless legs syndrome. PLAN: Antibiotics. Room air ABG. Monitor the patient. James Houston MD
[2018-03-28] MEDS: Enoxaparin 40 mg Syringe SC SCH (10:01)
[2018-03-28] MEDS: Pantoprazole 40 mg EC Tab PO SCH (10:01)
[2018-03-28] MEDS: Azithromycin 500mg/250ML NS 500 MG/250 ML BAG IVPB SCH (11:51)
--- NOTE | 2018-03-28 13:02 | CP.PCM.PN ---
<AubreyHouston - Last Filed: 03/28/18 17:15> Subjective - Date & Time of Evaluation Date of Evaluation: 03/28/18 Time of Evaluation: 12:59 - Subjective Subjective: PGY-2 Progress Note: Dr. Dodge Cardiology Service Patient seen and examined at bedside. Per nursing no acute events occurred overnight. Patient reports an improvement in shortness of breath. He denies any chest pain, fevers, chill, nausea, vomiting, headache, or any other complaints. Objective - Vital Signs/Intake and Output Vital Signs (last 24 hours): Temp Pulse Resp BP Pulse Ox 98.4 F 93 H 20 98/47 L 94 L 03/28/18 07:00 03/28/18 07:00 03/28/18 07:00 03/28/18 07:00 03/28/18 07:00 Intake and Output: 03/28/18 03/28/18 06:59 18:59 Intake Total 600 Output Total 300 Balance 300 - Medications Medications: Current Medications Acetaminophen (Tylenol 325mg Tab) 650 mg PO Q6 PRN PRN Reason: Pain, moderate (4-7) Last Admin: 03/26/18 21:21 Dose: 650 mg Albuterol/Ipratropium (Duoneb 3 Mg/0.5 Mg (3 Ml) Ud) 3 ml INH RQ6 [facility] Last Admin: 03/28/18 07:30 Dose: 3 ml Enoxaparin Sodium (Lovenox) 40 mg SC DAILY [facility] Last Admin: 03/28/18 10:01 Dose: 40 mg Gabapentin (Neurontin) 300 mg PO HS [facility] Last Admin: 03/27/18 21:38 Dose: 300 mg Guaifenesin (Robitussin) 200 mg PO Q4H PRN PRN Reason: Cough and congestion Last Admin: 03/28/18 03:00 Dose: 200 mg Ceftriaxone Sodium 1 gm/ (Sodium Chloride) 100 mls @ 100 mls/hr IVPB DAILY [facility]; Protocol Last Admin: 03/28/18 10:04 Dose: 100 mls/hr Azithromycin (Zithromax 500mg In Ns Addvantage) 500 mg in 250 mls @ 167 mls/hr IVPB Q24H [facility]; Protocol Last Admin: 03/28/18 11:51 Dose: 167 mls/hr Pantoprazole Sodium (Protonix Ec Tab) 40 mg PO DAILY [facility] Last Admin: 03/28/18 10:01 Dose: 40 mg Pramipexole Dihydrochloride (Mirapex) 1 mg PO HS [facility] Last Admin: 03/27/18 21:38 Dose: 1 mg - Labs Labs: 03/25/18 10:07 03/25/18 10:07 - Head Exam Head Exam: ATRAUMATIC, NORMAL INSPECTION, NORMOCEPHALIC - Eye Exam Eye Exam: EOMI, Normal appearance, PERRL. absent: Periorbital tenderness Pupil Exam: NORMAL ACCOMODATION, PERRL. absent: Irregular, Unequal - ENT Exam ENT Exam: Mucous Membranes Moist, Normal Oropharynx - Neck Exam Neck Exam: absent: Lymphadenopathy, Thyromegaly - Respiratory Exam Respiratory Exam: Clear to Ausculation Bilateral, NORMAL BREATHING PATTERN. absent: Chest Wall Tenderness, Prolonged Expiratory Phase, Respiratory Distress - Cardiovascular Exam Cardiovascular Exam: REGULAR RHYTHM, +S1, +S2 - GI/Abdominal Exam GI & Abdominal Exam: Soft, Normal Bowel Sounds. absent: Rigid, Hyperactive Bowel Sounds - Neurological Exam Neurological Exam: Alert, Awake, CN II-XII Intact, Oriented x3 - Psychiatric Exam Psychiatric exam: Normal Affect, Normal Mood. absent: Depressed - Skin Skin Exam: Dry, Intact, Normal Color. absent: Pallor Assessment and Plan - Assessment and Plan (Free Text) Assessment: 83 year old male with no pertinent past medical history presents with shortness of breath in conjunction with cough for the past couple of weeks. Plan: 1.Pneumonia Chest xray: Right upper lobe pneumonia. Right lower lobe subsegmemental atelectasis and mucous plugging. Pulmonary consulted. Help appreciated. Medications: Acetaminophen 650mg PO Q6 PRN Rocephin 1gm IVPB Daily Duoneb 3ml INH RQ6 [facility] Robitussin 200mg PO Q4H PRN Azithromycin 500mg IVPB Q24H 2.Shortness of breath. bnp 293 Echo EF:60-65% Grade I abnormal relaxation Mitral regurgitation mild Tricuspid regurgitation mild to moderate Pulmonary hypertension mild Pulmonary valvular regurgitation trace Cardiology consulted. Help appreciated. PPX -Lovenox -Protonix Plan discussed with Attending Dr. Dodge. Raza Burgos, PGY-2 <Bartolo Dodge - Last Filed: 03/29/18 22:51> Objective - Vital Signs/Intake and Output Vital Signs (last 24 hours): Temp Pulse Resp BP Pulse Ox 98.1 F 85 20 95/57 L 97 03/29/18 16:00 03/29/18 16:00 03/29/18 16:00 03/29/18 16:00 03/29/18 16:00 Intake and Output: 03/29/18 03/30/18 18:59 06:59 Intake Total 830 Balance 830 - Medications Medications: Current Medications Acetaminophen (Tylenol 325mg Tab) 650 mg PO Q6 PRN PRN Reason: Pain, moderate (4-7) Last Admin: 03/26/18 21:21 Dose: 650 mg Albuterol/Ipratropium (Duoneb 3 Mg/0.5 Mg (3 Ml) Ud) 3 ml INH RQ6 [facility] Last Admin: 03/29/18 19:54 Dose: 3 ml Enoxaparin Sodium (Lovenox) 40 mg SC DAILY [facility] Last Admin: 03/29/18 10:08 Dose: 40 mg Gabapentin (Neurontin) 300 mg PO HS [facility] Last Admin: 03/29/18 21:33 Dose: 300 mg Guaifenesin (Robitussin) 200 mg PO Q4H PRN PRN Reason: Cough and congestion Last Admin: 03/29/18 21:39 Dose: 200 mg Ceftriaxone Sodium 1 gm/ (Sodium Chloride) 100 mls @ 100 mls/hr IVPB DAILY [facility]; Protocol Last Admin: 03/29/18 10:08 Dose: 100 mls/hr Azithromycin (Zithromax 500mg In Ns Addvantage) 500 mg in 250 mls @ 167 mls/hr IVPB Q24H [facility]; Protocol Last Admin: 03/29/18 13:12 Dose: 167 mls/hr Pantoprazole Sodium (Protonix Ec Tab) 40 mg PO DAILY [facility] Last Admin: 03/29/18 10:08 Dose: 40 mg Pramipexole Dihydrochloride (Mirapex) 1 mg PO HS [facility] Last Admin: 03/29/18 21:32 Dose: 1 mg - Labs Labs: 03/25/18 10:07 03/25/18 10:07 Assessment and Plan - Assessment and Plan (Free Text) Assessment: Patient examined and evaluated personally by me. Plan of care d/w the resident and as documented
--- NOTE | 2018-03-28 15:52 | CP.PCM.PN ---
Subjective - Date & Time of Evaluation Date of Evaluation: 03/28/18 Time of Evaluation: 10:45 - Subjective Subjective: Mr. Weeks was seen and examined at bedside this morning. He is resting comfortably in bed in no acute distress. He reports significant improvement in his breathing since his admission. Additionally, his cough has improved in severity, with notably less sputum production. Patient was able to sleep without issue overnight. Currently denies any fever, chills, chest pain, n/v. No other complaints noted today. Exam: Gen: No acute distress. AAOx3. Elderly, thin appearing Card: RRRR, no murmurs, rubs or gallops. Lungs: Symmetric chest excursions. No tachypnea or respiratory distress noted. Clear to auscultation. No wheezing, rales or rhonchi heard. Abd: Soft, non-distended. No tenderness to palpation. A&P 1. Pneumonia - Continue IV ABX (day #3), duonebs and guafenesin - Cultures negative x 3 days; Mycoplasma titer pending - O2 sat 98% on room air. T 98.1, HR 98, RR 20, BP 106/64. Continue monitoring vitals Objective - Vital Signs/Intake and Output Vital Signs (last 24 hours): Temp Pulse Resp BP Pulse Ox 98.4 F 93 H 20 98/47 L 94 L 03/28/18 07:00 03/28/18 07:00 03/28/18 07:00 03/28/18 07:00 03/28/18 07:00 Intake and Output: 03/28/18 03/28/18 06:59 18:59 Intake Total 600 400 Output Total 300 Balance 300 400 - Medications Medications: Current Medications Acetaminophen (Tylenol 325mg Tab) 650 mg PO Q6 PRN PRN Reason: Pain, moderate (4-7) Last Admin: 03/26/18 21:21 Dose: 650 mg Albuterol/Ipratropium (Duoneb 3 Mg/0.5 Mg (3 Ml) Ud) 3 ml INH RQ6 [facility] Last Admin: 03/28/18 13:45 Dose: 3 ml Enoxaparin Sodium (Lovenox) 40 mg SC DAILY [facility] Last Admin: 03/28/18 10:01 Dose: 40 mg Gabapentin (Neurontin) 300 mg PO HS [facility] Last Admin: 03/27/18 21:38 Dose: 300 mg Guaifenesin (Robitussin) 200 mg PO Q4H PRN PRN Reason: Cough and congestion Last Admin: 03/28/18 03:00 Dose: 200 mg Ceftriaxone Sodium 1 gm/ (Sodium Chloride) 100 mls @ 100 mls/hr IVPB DAILY [facility]; Protocol Last Admin: 03/28/18 10:04 Dose: 100 mls/hr Azithromycin (Zithromax 500mg In Ns Addvantage) 500 mg in 250 mls @ 167 mls/hr IVPB Q24H [facility]; Protocol Last Admin: 03/28/18 11:51 Dose: 167 mls/hr Pantoprazole Sodium (Protonix Ec Tab) 40 mg PO DAILY [facility] Last Admin: 03/28/18 10:01 Dose: 40 mg Pramipexole Dihydrochloride (Mirapex) 1 mg PO HS [facility] Last Admin: 03/27/18 21:38 Dose: 1 mg - Labs Labs: 03/25/18 10:07 03/25/18 10:07 Assessment and Plan (1) Pneumonia Status: Acute
--- NOTE | 2018-03-28 16:21 | RAD ---
Date of service: 03/28/2018 HISTORY: f/u pnemonia COMPARISON: 03/25/2018 TECHNIQUE: Chest PA and lateral FINDINGS: LUNGS: Compared the prior study there is increased density to the prior right upper lobe consolidation posterior segment The confluency patchy airspace opacity at the right lung base and to lesser extent the left lung base appear similar. An element of bronchiectasis at the right lung base suspect. Right hilum slightly more prominent in appearance on the prior study suggested could be projectional. PLEURA: No significant pleural effusion identified. No pneumothorax apparent. CARDIOVASCULAR: No aortic atherosclerotic calcification present. Similar tortuosity of the thoracic aorta Normal cardiac size. No pulmonary vascular congestion. OSSEOUS STRUCTURES: Bilateral shoulder arthrosis VISUALIZED UPPER ABDOMEN: Normal. OTHER FINDINGS: None. IMPRESSION: Increased density without interval increase in size of the prior right upper lobe consolidation/infiltrate. Findings elsewhere are similar as detailed above. Follow-up to complete resolution is hree recommended following treatment completion.
--- NOTE | 2018-03-28 21:22 | CP.PCM.PN ---
Subjective - Subjective Subjective: dictated Objective - Vital Signs/Intake and Output Vital Signs (last 24 hours): Temp Pulse Resp BP Pulse Ox 98.3 F 80 20 119/49 L 96 03/28/18 16:42 03/28/18 16:42 03/28/18 16:42 03/28/18 16:42 03/28/18 16:42 Intake and Output: 03/28/18 03/29/18 18:59 06:59 Intake Total 400 Balance 400 - Medications Medications: Current Medications Acetaminophen (Tylenol 325mg Tab) 650 mg PO Q6 PRN PRN Reason: Pain, moderate (4-7) Last Admin: 03/26/18 21:21 Dose: 650 mg Albuterol/Ipratropium (Duoneb 3 Mg/0.5 Mg (3 Ml) Ud) 3 ml INH RQ6 ANNELIESE Last Admin: 03/28/18 19:50 Dose: 3 ml Enoxaparin Sodium (Lovenox) 40 mg SC DAILY [facility]EL[facility]E Last Admin: 03/28/18 10:01 Dose: 40 mg Gabapentin (Neurontin) 300 mg PO HS [facility] Last Admin: 03/27/18 21:38 Dose: 300 mg Guaifenesin (Robitussin) 200 mg PO Q4H PRN PRN Reason: Cough and congestion Last Admin: 03/28/18 03:00 Dose: 200 mg Ceftriaxone Sodium 1 gm/ (Sodium Chloride) 100 mls @ 100 mls/hr IVPB DAILY [facility]E; Protocol Last Admin: 03/28/18 10:04 Dose: 100 mls/hr Azithromycin (Zithromax 500mg In Ns Addvantage) 500 mg in 250 mls @ 167 mls/hr IVPB Q24H [facility]E; Protocol Last Admin: 03/28/18 11:51 Dose: 167 mls/hr Pantoprazole Sodium (Protonix Ec Tab) 40 mg PO DAILY [facility] Last Admin: 03/28/18 10:01 Dose: 40 mg Pramipexole Dihydrochloride (Mirapex) 1 mg PO HS [facility] Last Admin: 03/27/18 21:38 Dose: 1 mg - Labs Labs: 03/25/18 10:07 03/25/18 10:07
[2018-03-29] MEDS: Albuterol-Ipratrop 3 mg / 0.5 (3 ml) UD INH SCH ×4 (01:35→19:54)
--- NOTE | 2018-03-29 03:16 | PN ---
DATE: 03/28/2018 SUBJECTIVE: The patient, Micky still has cough, congestion. No fever. No chills. He has a right upper lobe infiltrate which is triangular. PHYSICAL EXAMINATION: VITAL SIGNS: Blood pressure 119/49, pulse 80, respiratory rate 20, temperature 98.3. LUNGS: Crackles in the right upper lobe. CARDIOVASCULAR SYSTEM: S1, S2, regular. ABDOMEN: Soft. ASSESSMENT: 1. Pneumonia. 2. Restless leg syndrome. PLAN: Get CT of the chest. James Houston MD
[2018-03-29] MEDS: Enoxaparin 40 mg Syringe SC SCH (10:08)
[2018-03-29] MEDS: Pantoprazole 40 mg EC Tab PO SCH (10:08)
--- NOTE | 2018-03-29 13:00 | CT ---
Date of service: 03/29/2018 PROCEDURE: CT Chest without contrast HISTORY: mass COMPARISON: None available. TECHNIQUE: Contiguous axial images were obtained through the chest without intravenous contrast enhancement. Sagittal and coronal reconstructions were performed. Radiation dose (DLP): 256.18 mGy-cm. This CT exam was performed using one or more of the following dose reduction techniques: Automated exposure control, adjustment of the mA and/or kV according to patient size, and/or use of iterative reconstruction technique. FINDINGS: LUNGS: Extensive reticular interstitial and alveolar opacity in posterior segment right upper lobe. There are small focal areas of consolidation within this mixed reticular/alveolar opacity. Patchy opacities are seen in the right lower lobe, both superior segment and in basilar segments. There is probable focal subsegmental atelectasis in the posterior basal segment right lower lobe. There are scattered patchy opacities in the left lower lobe these are nonspecific. Possible multifocal pneumonia. Cannot rule out underlying neoplasm. Follow-up to clearing is advised. No discrete mass is identified. MEDIASTINUM: Unremarkable thoracic aorta. No aneurysm. Normal heart size. Coronary arterial calcification. Mitral annular calcification. Main pulmonary artery unremarkable. No vascular congestion. Note is made of a small collection of gas abutting the left lateral wall of the esophagus at the level of the thoracic inlet. This is also adjacent to but by a tissue plane from the left lateral wall of the trachea. Differential diagnosis includes atypical esophageal diverticulum or acquired tracheo seal. It measures approximately 1.1 cm in greatest dimension. There is atherosclerotic calcification of the thoracic aorta. PLEURA: No pleural fluid. No pneumothorax. BONES: No fracture. No destructive lesion. UPPER ABDOMEN: Multiple nonspecific low-attenuation lesions in both right and left lobe of the liver, up to 2.9 cm. Correlating with ultrasound examination of 12/20/2017, multiple cysts were seen in the liver on that examination. Mild pancreatic ductal dilatation is noted in the head and body of the pancreas. Uncertain significance. Consider evaluation with MRCP on a nonemergent basis. No evidence of biliary dilatation. OTHER FINDINGS: None. IMPRESSION: Multi lobar multifocal opacities with both interstitial and alveolar component, most markedly in the posterior segment right upper lobe. Probable subsegmental atelectasis posterior basal right lower lobe. Possible multifocal pneumonia. Rule out neoplasm. Follow-up to clearing advised. 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 Multiple low-density hepatic masses, likely cysts. Mild pancreatic ductal dilatation. Consider nonemergent evaluation with MRCP.
[2018-03-29] MEDS: Azithromycin 500mg/250ML NS 500 MG/250 ML BAG IVPB SCH (13:12)
--- NOTE | 2018-03-29 15:12 | CP.PCM.PN ---
Subjective - Date & Time of Evaluation Date of Evaluation: 03/29/18 Time of Evaluation: 14:00 - Subjective Subjective: Patient was seen and examined in bedside this morning. Patient is resting comfortably and in no acute distress. Patient slept well overnight. He is feeling much better and states his breathing has improved since his admission. Patient is coughing less frequently. Denies fevers, chills, chest pain, n/v. no other complaints noted today. Exam: General: no acute distress, AAOx3, elderly, thin appearing Cardio: RRR, no murmurs, rubs or gallops Lungs: decreased breathing, rales and rhonchi present A&P: 1. Pneumonia - Continue IV ABX, duonebs and guafenesin - Culutres negative x 4 days, mycoplasma titer pending - O2 sat 97% on RA. afebrile at 98.5 F - Continue Monitoring Vitals Objective - Vital Signs/Intake and Output Vital Signs (last 24 hours): Temp Pulse Resp BP Pulse Ox 98.5 F 77 20 108/66 97 03/29/18 07:29 03/29/18 07:29 03/29/18 07:29 03/29/18 07:29 03/29/18 07:29 Intake and Output: 03/29/18 03/29/18 06:59 18:59 Intake Total 600 Balance 600 - Medications Medications: Current Medications Acetaminophen (Tylenol 325mg Tab) 650 mg PO Q6 PRN PRN Reason: Pain, moderate (4-7) Last Admin: 03/26/18 21:21 Dose: 650 mg Albuterol/Ipratropium (Duoneb 3 Mg/0.5 Mg (3 Ml) Ud) 3 ml INH RQ6 ANNELIESE Last Admin: 03/29/18 13:14 Dose: 3 ml Enoxaparin Sodium (Lovenox) 40 mg SC DAILY [facility]ELIESE Last Admin: 03/29/18 10:08 Dose: 40 mg Gabapentin (Neurontin) 300 mg PO HS [facility] Last Admin: 03/28/18 22:18 Dose: 300 mg Guaifenesin (Robitussin) 200 mg PO Q4H PRN PRN Reason: Cough and congestion Last Admin: 03/28/18 21:00 Dose: 200 mg Ceftriaxone Sodium 1 gm/ (Sodium Chloride) 100 mls @ 100 mls/hr IVPB DAILY [facility]IESE; Protocol Last Admin: 03/29/18 10:08 Dose: 100 mls/hr Azithromycin (Zithromax 500mg In Ns Addvantage) 500 mg in 250 mls @ 167 mls/hr IVPB Q24H [facility]ELIESE; Protocol Last Admin: 03/29/18 13:12 Dose: 167 mls/hr Pantoprazole Sodium (Protonix Ec Tab) 40 mg PO DAILY [facility] Last Admin: 03/29/18 10:08 Dose: 40 mg Pramipexole Dihydrochloride (Mirapex) 1 mg PO HS [facility] Last Admin: 03/28/18 22:18 Dose: 1 mg - Labs Labs: 03/25/18 10:07 03/25/18 10:07 Assessment and Plan (1) Pneumonia Status: Acute
--- NOTE | 2018-03-29 17:03 | CP.PCM.PN ---
<Raza Burgos - Last Filed: 03/29/18 17:08> Subjective - Date & Time of Evaluation Date of Evaluation: 03/29/18 Time of Evaluation: 17:03 - Subjective Subjective: PGY-2 Progress Note: Dr. Dodge Cardiology Service Patient seen and examined at bedside. Per nursing no acute events occurred overnight. Patient reports an improvement in shortness of breath. He denies any chest pain, fevers, chill, nausea, vomiting, headache, or any other complaints. Objective - Vital Signs/Intake and Output Vital Signs (last 24 hours): Temp Pulse Resp BP Pulse Ox 98.1 F 85 20 95/57 L 97 03/29/18 16:00 03/29/18 16:00 03/29/18 16:00 03/29/18 16:00 03/29/18 16:00 Intake and Output: 03/29/18 03/29/18 06:59 18:59 Intake Total 600 830 Balance 600 830 - Medications Medications: Current Medications Acetaminophen (Tylenol 325mg Tab) 650 mg PO Q6 PRN PRN Reason: Pain, moderate (4-7) Last Admin: 03/26/18 21:21 Dose: 650 mg Albuterol/Ipratropium (Duoneb 3 Mg/0.5 Mg (3 Ml) Ud) 3 ml INH RQ6 [facility]ELIESE Last Admin: 03/29/18 13:14 Dose: 3 ml Enoxaparin Sodium (Lovenox) 40 mg SC DAILY ANNEL[facility]E Last Admin: 03/29/18 10:08 Dose: 40 mg Gabapentin (Neurontin) 300 mg PO HS [facility]E Last Admin: 03/28/18 22:18 Dose: 300 mg Guaifenesin (Robitussin) 200 mg PO Q4H PRN PRN Reason: Cough and congestion Last Admin: 03/28/18 21:00 Dose: 200 mg Ceftriaxone Sodium 1 gm/ (Sodium Chloride) 100 mls @ 100 mls/hr IVPB DAILY [facility]ELIESE; Protocol Last Admin: 03/29/18 10:08 Dose: 100 mls/hr Azithromycin (Zithromax 500mg In Ns Addvantage) 500 mg in 250 mls @ 167 mls/hr IVPB Q24H [facility]ELIESE; Protocol Last Admin: 03/29/18 13:12 Dose: 167 mls/hr Pantoprazole Sodium (Protonix Ec Tab) 40 mg PO DAILY [facility]EL[facility]E Last Admin: 03/29/18 10:08 Dose: 40 mg Pramipexole Dihydrochloride (Mirapex) 1 mg PO HS [facility] Last Admin: 03/28/18 22:18 Dose: 1 mg - Labs Labs: 03/25/18 10:07 03/25/18 10:07 - Head Exam Head Exam: ATRAUMATIC, NORMAL INSPECTION - Eye Exam Eye Exam: EOMI, Normal appearance Pupil Exam: NORMAL ACCOMODATION, PERRL - ENT Exam ENT Exam: Mucous Membranes Moist, Normal Exam - Neck Exam Neck Exam: Normal Inspection - Respiratory Exam Respiratory Exam: Clear to Ausculation Bilateral, NORMAL BREATHING PATTERN. absent: Stridor - Cardiovascular Exam Cardiovascular Exam: REGULAR RHYTHM, +S1, +S2 - GI/Abdominal Exam GI & Abdominal Exam: Soft, Normal Bowel Sounds - Extremities Exam Extremities Exam: Normal Inspection - Back Exam Back Exam: NORMAL INSPECTION - Neurological Exam Neurological Exam: Alert, Awake, CN II-XII Intact - Psychiatric Exam Psychiatric exam: Normal Affect, Normal Mood - Skin Skin Exam: Dry, Intact Assessment and Plan - Assessment and Plan (Free Text) Assessment: 83 year old male with no pertinent past medical history presents with shortness of breath in conjunction with cough for the past couple of weeks. Plan: 1.Pneumonia Chest xray: Right upper lobe pneumonia. Right lower lobe subsegmemental atelectasis and mucous plugging. Pulmonary consulted. Help appreciated. Medications: Acetaminophen 650mg PO Q6 PRN Rocephin 1gm IVPB Daily Duoneb 3ml INH RQ6 ANNELIESE Robitussin 200mg PO Q4H PRN Azithromycin 500mg IVPB Q24H 2.Shortness of breath. bnp 293 Echo EF:60-65% Grade I abnormal relaxation Mitral regurgitation mild Tricuspid regurgitation mild to moderate Pulmonary hypertension mild Pulmonary valvular regurgitation trace Cardiology consulted. Help appreciated. PPX -Lovenox -Protonix Plan discussed with Attending Dr. Dodge. Raza Burgos, PGY-2 <Bartolo Dodge - Last Filed: 03/29/18 22:52> Objective - Vital Signs/Intake and Output Vital Signs (last 24 hours): Temp Pulse Resp BP Pulse Ox 98.1 F 85 20 95/57 L 97 03/29/18 16:00 03/29/18 16:00 03/29/18 16:00 03/29/18 16:00 03/29/18 16:00 Intake and Output: 03/29/18 03/30/18 18:59 06:59 Intake Total 830 Balance 830 - Medications Medications: Current Medications Acetaminophen (Tylenol 325mg Tab) 650 mg PO Q6 PRN PRN Reason: Pain, moderate (4-7) Last Admin: 03/26/18 21:21 Dose: 650 mg Albuterol/Ipratropium (Duoneb 3 Mg/0.5 Mg (3 Ml) Ud) 3 ml INH RQ6 ANNELIESE Last Admin: 03/29/18 19:54 Dose: 3 ml Enoxaparin Sodium (Lovenox) 40 mg SC DAILY ANNELIESE Last Admin: 03/29/18 10:08 Dose: 40 mg Gabapentin (Neurontin) 300 mg PO HS [facility]ELIESE Last Admin: 03/29/18 21:33 Dose: 300 mg Guaifenesin (Robitussin) 200 mg PO Q4H PRN PRN Reason: Cough and congestion Last Admin: 03/29/18 21:39 Dose: 200 mg Ceftriaxone Sodium 1 gm/ (Sodium Chloride) 100 mls @ 100 mls/hr IVPB DAILY ANNELIESE; Protocol Last Admin: 03/29/18 10:08 Dose: 100 mls/hr Azithromycin (Zithromax 500mg In Ns Addvantage) 500 mg in 250 mls @ 167 mls/hr IVPB Q24H ANNELIESE; Protocol Last Admin: 03/29/18 13:12 Dose: 167 mls/hr Pantoprazole Sodium (Protonix Ec Tab) 40 mg PO DAILY ANNELIESE Last Admin: 03/29/18 10:08 Dose: 40 mg Pramipexole Dihydrochloride (Mirapex) 1 mg PO HS [facility] Last Admin: 03/29/18 21:32 Dose: 1 mg - Labs Labs: 03/25/18 10:07 03/25/18 10:07 Assessment and Plan - Assessment and Plan (Free Text) Assessment: Patient examined and evaluated personally by me. Plan of care d/w the resident and as documented
[2018-03-29] MEDS: guaiFENesin 200 mg/10 ml Syrup UD PO PRN (21:39)
--- NOTE | 2018-03-29 23:11 | CP.PCM.PN ---
Subjective - Date & Time of Evaluation Date of Evaluation: 03/29/18 Time of Evaluation: 12:50 - Subjective Subjective: dictated Objective - Vital Signs/Intake and Output Vital Signs (last 24 hours): Temp Pulse Resp BP Pulse Ox 98.1 F 85 20 95/57 L 97 03/29/18 16:00 03/29/18 16:00 03/29/18 16:00 03/29/18 16:00 03/29/18 16:00 Intake and Output: 03/29/18 03/30/18 18:59 06:59 Intake Total 830 Balance 830 - Medications Medications: Current Medications Acetaminophen (Tylenol 325mg Tab) 650 mg PO Q6 PRN PRN Reason: Pain, moderate (4-7) Last Admin: 03/26/18 21:21 Dose: 650 mg Albuterol/Ipratropium (Duoneb 3 Mg/0.5 Mg (3 Ml) Ud) 3 ml INH RQ6 ANNELIESE Last Admin: 03/29/18 19:54 Dose: 3 ml Enoxaparin Sodium (Lovenox) 40 mg SC DAILY ANNELIESE Last Admin: 03/29/18 10:08 Dose: 40 mg Gabapentin (Neurontin) 300 mg PO HS [facility]EL[facility]E Last Admin: 03/29/18 21:33 Dose: 300 mg Guaifenesin (Robitussin) 200 mg PO Q4H PRN PRN Reason: Cough and congestion Last Admin: 03/29/18 21:39 Dose: 200 mg Ceftriaxone Sodium 1 gm/ (Sodium Chloride) 100 mls @ 100 mls/hr IVPB DAILY ANNELIESE; Protocol Last Admin: 03/29/18 10:08 Dose: 100 mls/hr Azithromycin (Zithromax 500mg In Ns Addvantage) 500 mg in 250 mls @ 167 mls/hr IVPB Q24H ANNELIESE; Protocol Last Admin: 03/29/18 13:12 Dose: 167 mls/hr Pantoprazole Sodium (Protonix Ec Tab) 40 mg PO DAILY ANNELIESE Last Admin: 03/29/18 10:08 Dose: 40 mg Pramipexole Dihydrochloride (Mirapex) 1 mg PO HS ANNELIESE Last Admin: 03/29/18 21:32 Dose: 1 mg - Labs Labs: 03/25/18 10:07 03/25/18 10:07
[2018-03-30] MEDS: Albuterol-Ipratrop 3 mg / 0.5 (3 ml) UD INH SCH ×4 (02:45→21:01)
--- NOTE | 2018-03-30 03:27 | PN ---
DATE: 03/29/2018 SUBJECTIVE: The patient is coughing, congested. He is afebrile. No nausea or vomiting. He feels better. PHYSICAL EXAMINATION: VITAL SIGNS: Blood pressure 95/57, pulse 85, respiratory rate 20, and temperature 98.1. LUNGS: Positive crackles in the right upper lobe. Decreased air entry. CARDIOVASCULAR SYSTEM: S1 and S2 regular. ABDOMEN: Soft and nontender. Bowel sounds are positive. ASSESSMENT: Pneumonia. PLAN: Continue current medications. Monitor the patient. James Houston MD
[2018-03-30 07:30] LABS: BASO # 0.1 K/uL (0.0-0.2); EOS # 0.2 K/uL (0.0-0.7); EOS % 3.1 % (0.0-4.0); HEMOGLOBIN 11.9 g/dL (12.0-18.0); LYMPH # 0.8 K/uL (1.0-4.3); LYMPH % 13.1 % (20.0-40.0); MEAN CELL VOLUME 86.7 fL (80.0-94.0); MEAN CORPUSCULAR HEMOGLOBIN 30.5 pg (27.0-31.0); MEAN CORPUSCULAR HGB CONC 35.2 g/dL (33.0-37.0); MEAN PLATELET VOLUME 8.9 fL (7.2-11.7); MONO # 0.5 K/uL (0.0-0.8); MONO % 8.7 % (0.0-10.0); NEUT # 4.3 K/uL (1.8-7.0); NEUT % 74.1 % (50.0-75.0); RBC 3.91 Mil/uL (4.40-5.90); RED CELL DISTRIBUTION WIDTH 13.4 % (11.5-14.5); WHITE BLOOD COUNT 5.9 K/uL (4.8-10.8)
[2018-03-30 07:36] LABS: BLOOD UREA NITROGEN 8 mg/dL (9-20); CALCIUM 8.4 mg/dl (8.6-10.4); GFR NON-AFRICAN AMERICAN > 60
[2018-03-30] MEDS: Enoxaparin 40 mg Syringe SC SCH (09:25)
[2018-03-30] MEDS: Pantoprazole 40 mg EC Tab PO SCH (09:25)
[2018-03-30] MEDS: Azithromycin 500mg/250ML NS 500 MG/250 ML BAG IVPB SCH (12:03)
--- NOTE | 2018-03-30 17:55 | CP.PCM.PN ---
Subjective - Date & Time of Evaluation Date of Evaluation: 03/30/18 Time of Evaluation: 10:20 - Subjective Subjective: Patient was seen and examined in bedside this morning. Patient is resting comfortably and in no acute distress. He is complaining of a productive cough with white sputum that is worsening. Patient slept well overnight. Denies fevers, chills, chest pain, n/v or shortness of breath. no other complaints noted today. Exam: General: no acute distress, AAOx3, elderly, thin appearing Cardio: RRR, no murmurs, rubs or gallops Lungs: decreased breathing, rales and rhonchi present A&P: 1. Pneumonia - Continue IV ABX, duonebs - Culutres negative x 4 days, mycoplasma titer pending - O2 sat 96% on nasal cannula. afebrile at 98.3 F - Continue Monitoring Vital - Start phenergan with codeine for persistent cough - Order repeat CXR Objective - Vital Signs/Intake and Output Vital Signs (last 24 hours): Temp Pulse Resp BP Pulse Ox 98.3 F 97 H 20 101/63 96 03/30/18 08:02 03/30/18 08:02 03/30/18 08:02 03/30/18 08:02 03/30/18 08:02 Intake and Output: 03/30/18 03/30/18 06:59 18:59 Intake Total 300 830 Balance 300 830 - Medications Medications: Current Medications Acetaminophen (Tylenol 325mg Tab) 650 mg PO Q6 PRN PRN Reason: Pain, moderate (4-7) Last Admin: 03/26/18 21:21 Dose: 650 mg Albuterol/Ipratropium (Duoneb 3 Mg/0.5 Mg (3 Ml) Ud) 3 ml INH RQ6 ANNELIESE Last Admin: 03/30/18 15:32 Dose: Not Given Enoxaparin Sodium (Lovenox) 40 mg SC DAILY ANNELIESE Last Admin: 03/30/18 09:25 Dose: 40 mg Gabapentin (Neurontin) 300 mg PO HS [facility] Last Admin: 03/29/18 21:33 Dose: 300 mg Guaifenesin (Robitussin) 200 mg PO Q4H PRN PRN Reason: Cough and congestion Last Admin: 03/29/18 21:39 Dose: 200 mg Ceftriaxone Sodium 1 gm/ (Sodium Chloride) 100 mls @ 100 mls/hr IVPB DAILY ANNELIESE; Protocol Last Admin: 03/30/18 10:21 Dose: 100 mls/hr Azithromycin (Zithromax 500mg In Ns Addvantage) 500 mg in 250 mls @ 167 mls/hr IVPB Q24H ANNELIESE; Protocol Last Admin: 03/30/18 12:03 Dose: 167 mls/hr Pantoprazole Sodium (Protonix Ec Tab) 40 mg PO DAILY ANNELIESE Last Admin: 03/30/18 09:25 Dose: 40 mg Pramipexole Dihydrochloride (Mirapex) 1 mg PO HS ANNELIESE Last Admin: 03/29/18 21:32 Dose: 1 mg - Labs Labs: 03/30/18 07:09 03/30/18 07:09 Assessment and Plan (1) Pneumonia Status: Acute
--- NOTE | 2018-03-30 20:48 | CP.PCM.PN ---
Subjective - Date & Time of Evaluation Date of Evaluation: 03/30/18 Time of Evaluation: 11:58 - Subjective Subjective: dictated Objective - Vital Signs/Intake and Output Vital Signs (last 24 hours): Temp Pulse Resp BP Pulse Ox 98.3 F 97 H 20 101/63 96 03/30/18 08:02 03/30/18 08:02 03/30/18 08:02 03/30/18 08:02 03/30/18 08:02 Intake and Output: 03/30/18 03/31/18 18:59 06:59 Intake Total 830 Balance 830 - Medications Medications: Current Medications Acetaminophen (Tylenol 325mg Tab) 650 mg PO Q6 PRN PRN Reason: Pain, moderate (4-7) Last Admin: 03/26/18 21:21 Dose: 650 mg Albuterol/Ipratropium (Duoneb 3 Mg/0.5 Mg (3 Ml) Ud) 3 ml INH RQ6 ANNELIESE Last Admin: 03/30/18 15:32 Dose: Not Given Enoxaparin Sodium (Lovenox) 40 mg SC DAILY ANNELIESE Last Admin: 03/30/18 09:25 Dose: 40 mg Gabapentin (Neurontin) 300 mg PO HS ANNELIESE Last Admin: 03/29/18 21:33 Dose: 300 mg Ceftriaxone Sodium 1 gm/ (Sodium Chloride) 100 mls @ 100 mls/hr IVPB DAILY ANNELIESE; Protocol Last Admin: 03/30/18 10:21 Dose: 100 mls/hr Azithromycin (Zithromax 500mg In Ns Addvantage) 500 mg in 250 mls @ 167 mls/hr IVPB Q24H ANNELIESE; Protocol Last Admin: 03/30/18 12:03 Dose: 167 mls/hr Pantoprazole Sodium (Protonix Ec Tab) 40 mg PO DAILY ANNELIESE Last Admin: 03/30/18 09:25 Dose: 40 mg Pramipexole Dihydrochloride (Mirapex) 1 mg PO HS ANNELIESE Last Admin: 03/29/18 21:32 Dose: 1 mg Promethazine HCl/Codeine (Phenergan/Codeine Oral Syrup) 5 ml PO Q6 PRN PRN Reason: Cough - Labs Labs: 03/30/18 07:09 03/30/18 07:09
[2018-03-30] MEDS: Promethazine/Cod 6.25mg-10mg/5ml Syr UD PO PRN (21:39)
--- NOTE | 2018-03-31 00:15 | PN ---
DATE: 03/30/2018 SUBJECTIVE: The patient has cough and wheezing. He is afebrile. No shortness of breath. No chest pain. No nausea or vomiting. PHYSICAL EXAMINATION: VITAL SIGNS: Blood pressure 101/63, pulse 97, respiratory rate 20, and temperature 98.3. LUNGS: Positive scattered rales. CARDIOVASCULAR SYSTEM: S1, S2 regular. ABDOMEN: Soft. ASSESSMENT: 1. Pneumonia 2. Restless leg syndrome. PLAN: Continue antibiotics. Possible discharge in a.m. James Houston MD
[2018-03-31] MEDS: Albuterol-Ipratrop 3 mg / 0.5 (3 ml) UD INH SCH ×4 (01:46→20:53)
[2018-03-31] MEDS: Pantoprazole 40 mg EC Tab PO SCH (10:25)
[2018-03-31] MEDS: Enoxaparin 40 mg Syringe SC SCH (10:26)
[2018-03-31] MEDS: Promethazine/Cod 6.25mg-10mg/5ml Syr UD PO PRN ×2 (10:33→21:38)
--- NOTE | 2018-03-31 10:40 | RAD ---
Date of service: 03/31/2018 HISTORY: f/u pneumonia COMPARISON: Chest radiographs 03/28/2018. FINDINGS: LUNGS: Persistent consolidation seen in the right upper lobe with increasing consolidation noted at the right base laterally. Patchy density remains at the left base as well. PLEURA: No significant pleural effusion identified, no pneumothorax apparent. CARDIOVASCULAR: No aortic atherosclerotic calcification present. Normal cardiac size. No pulmonary vascular congestion. OSSEOUS STRUCTURES: No significant abnormalities. VISUALIZED UPPER ABDOMEN: Normal. OTHER FINDINGS: None. IMPRESSION: Increased right basilar infiltrate with persistent/unchanged right upper lobe and left basilar infiltrates. No pleural effusion or pulmonary vascular congestion.
[2018-03-31] MEDS: Azithromycin 500mg/250ML NS 500 MG/250 ML BAG IVPB SCH (13:01)
--- NOTE | 2018-03-31 13:31 | CP.PCM.PN ---
Subjective - Date & Time of Evaluation Date of Evaluation: 03/31/18 Time of Evaluation: 09:00 - Subjective Subjective: Patient was seen and examined in bedside this morning. Patient is resting comfortably and in no acute distress. He is complaining of a productive cough with white sputum that is worsening. Patient slept well overnight. Denies fevers, chills, chest pain, n/v or shortness of breath. no other complaints noted today. Exam: General: no acute distress, AAOx3, elderly, thin appearing Cardio: RRR, no murmurs, rubs or gallops Lungs: decreased breathing, rales and rhonchi present A&P: 1. Pneumonia - Order repeat CXR - Continue IV ABX, duonebs - Culutres negative x 4 days, mycoplasma titer pending - O2 sat 96% on nasal cannula. afebrile at 98.3 F - Continue Monitoring Vital - Started on phenergan with codeine for persistent cough Objective - Vital Signs/Intake and Output Vital Signs (last 24 hours): Temp Pulse Resp BP Pulse Ox 98.1 F 78 20 118/69 95 03/31/18 07:49 03/31/18 07:49 03/31/18 07:49 03/31/18 07:49 03/31/18 07:49 Intake and Output: 03/31/18 03/31/18 06:59 18:59 Intake Total 500 Balance 500 - Medications Medications: Current Medications Acetaminophen (Tylenol 325mg Tab) 650 mg PO Q6 PRN PRN Reason: Pain, moderate (4-7) Last Admin: 03/26/18 21:21 Dose: 650 mg Albuterol/Ipratropium (Duoneb 3 Mg/0.5 Mg (3 Ml) Ud) 3 ml INH RQ6 [facility] Last Admin: 03/31/18 07:35 Dose: 3 ml Enoxaparin Sodium (Lovenox) 40 mg SC DAILY [facility] Last Admin: 03/31/18 10:26 Dose: 40 mg Gabapentin (Neurontin) 300 mg PO HS [facility] Last Admin: 03/30/18 21:32 Dose: 300 mg Pantoprazole Sodium (Protonix Ec Tab) 40 mg PO DAILY [facility] Last Admin: 03/31/18 10:25 Dose: 40 mg Pramipexole Dihydrochloride (Mirapex) 1 mg PO HS [facility] Last Admin: 03/30/18 21:31 Dose: 1 mg Promethazine HCl/Codeine (Phenergan/Codeine Oral Syrup) 5 ml PO Q6 PRN PRN Reason: Cough Last Admin: 03/31/18 10:33 Dose: 5 ml - Labs Labs: 03/30/18 07:09 03/30/18 07:09 Assessment and Plan (1) Pneumonia Status: Acute
[2018-03-31] MEDS ORDERED: Azithromycin 500 MG in Sodium Chloride 0.9% 250 ML IVPB STA (13:32)
--- NOTE | 2018-03-31 14:03 | CP.PCM.CON ---
History of Present Illness - History of Present Illness History of Present Illness: INFECTIOUS DISEASE CONSULT; pATIENT SEEN. cHART REVIEWED RADIOLOGY REVIEWED CASE DISCUSSED WITH EVENT SET UP SPECIALIST . DICTATED; DICTATION NUMBER; [id number]. IMPRESSION; -MULTI LOBAR PNEUMONIA R/O ATYPICAL PNEUMONIA R/O CHRONIC ASPIRATION. 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 -EXACERBATION OF COPD. -ARTHRITIS ( B/L KNEES ) -HYPERTENSION. PLAN; PANCULTURES aTYPICAL TITERS mrsa SCREEN iNFLUENZA a AND b RAPID ANTIGEN TEST DC IV zOSYN START iv CEFEPIME 1 G EVERY 12 HOURLY 03/31/18. START VANCOMYCIN 1 G EVERY 24 HOURLY. 03/31/18. fOLLOW-UP vANCO TROUGH PRIOR TO THE FOURTH DOSE AND KEEP BETWEEN 10 AND 20 MG/l. fOLLOW-UP RENAL FUNCTIONS CLOSELY CONSIDER BARIUM SWALLOW TO RULE OUT CHRONIC ASPIRATION. CASE DISCUSSED WITH DR SINGH -EVENT SET UP SPECIALIST. WILL FOLLOW ALONG WITH YOU. THANK YOU. Past Patient History - Infectious Disease Hx of Infectious Diseases: None - Past Medical History & Family History Past Medical History?: Yes - Past Social History Smoking Status: Never Smoked - MUSCULOSKELETAL/RHEUMATOLOGICAL Hx Arthritis: Yes (bilateral knee/leg) - PSYCHIATRIC Hx Substance Use: No - SURGICAL HISTORY Hx Surgeries: No - ANESTHESIA Hx Anesthesia: No Meds Allergies/Adverse Reactions: Allergies Allergy/AdvReac Type Severity Reaction Status Date / Time No Known Allergies Allergy Verified 03/25/18 08:21 - Medications Medications: Current Medications Acetaminophen (Tylenol 325mg Tab) 650 mg PO Q6 PRN PRN Reason: Pain, moderate (4-7) Last Admin: 03/26/18 21:21 Dose: 650 mg Albuterol/Ipratropium (Duoneb 3 Mg/0.5 Mg (3 Ml) Ud) 3 ml INH RQ6 ANNELIESE Last Admin: 03/31/18 07:35 Dose: 3 ml Enoxaparin Sodium (Lovenox) 40 mg SC DAILY ANNELIESE Last Admin: 03/31/18 10:26 Dose: 40 mg Gabapentin (Neurontin) 300 mg PO HS ANNELIESE Last Admin: 03/30/18 21:32 Dose: 300 mg Piperacillin Sod/Tazobactam Sod (Zosyn 3.375 Gm Iv Premix) 3.375 gm in 50 mls @ 100 mls/hr IVPB Q8H ANNELIESE; Protocol Pantoprazole Sodium (Protonix Ec Tab) 40 mg PO DAILY ANNELIESE Last Admin: 03/31/18 10:25 Dose: 40 mg Pramipexole Dihydrochloride (Mirapex) 1 mg PO HS [facility] Last Admin: 03/30/18 21:31 Dose: 1 mg Promethazine HCl/Codeine (Phenergan/Codeine Oral Syrup) 5 ml PO Q6 PRN PRN Reason: Cough Last Admin: 03/31/18 10:33 Dose: 5 ml Results - Vital Signs Recent Vital Signs: Last Vital Signs Temp 98.1 F 03/31/18 07:49 Pulse 78 03/31/18 07:49 Resp 20 03/31/18 07:49 BP 118/69 03/31/18 07:49 Pulse Ox 95 03/31/18 07:49 - Labs Result Diagrams: 03/30/18 07:09 03/30/18 07:09 Labs: Laboratory Results - last 24 hr 03/27/18 14:14 Mycoplasma pneumon IgG <=0.90 Mycoplasma pneumon IgM 27
[2018-03-31] MEDS ORDERED: Piperacill/Tazo 3.375gm in Dex 3.375 GM/50 ML BAG IVPB SCH (14:30)
[2018-03-31] MEDS: Vancomycin 1 gm/NS 200 ml 1 GM/200 ML BAG IVPB SCH (14:54)
[2018-03-31] MEDS: Cefepime IV 1 gm in Dextrose 1 GM/50 ML BAG IVPB SCH (17:39)
--- NOTE | 2018-03-31 18:58 | CP.PCM.PN ---
Subjective - Date & Time of Evaluation Date of Evaluation: 03/31/18 Time of Evaluation: 17:40 - Subjective Subjective: dictated Objective - Vital Signs/Intake and Output Vital Signs (last 24 hours): Temp Pulse Resp BP Pulse Ox 97.8 F 92 H 20 104/58 L 20 L 03/31/18 16:07 03/31/18 16:07 03/31/18 16:07 03/31/18 16:07 03/31/18 16:07 Intake and Output: 03/31/18 03/31/18 06:59 18:59 Intake Total 500 1050 Balance 500 1050 - Medications Medications: Current Medications Acetaminophen (Tylenol 325mg Tab) 650 mg PO Q6 PRN PRN Reason: Pain, moderate (4-7) Last Admin: 03/26/18 21:21 Dose: 650 mg Albuterol/Ipratropium (Duoneb 3 Mg/0.5 Mg (3 Ml) Ud) 3 ml INH RQ6 ANNELIESE Last Admin: 03/31/18 13:35 Dose: 3 ml Enoxaparin Sodium (Lovenox) 40 mg SC DAILY ANNELIESE Last Admin: 03/31/18 10:26 Dose: 40 mg Gabapentin (Neurontin) 300 mg PO HS ANNELIESE Last Admin: 03/30/18 21:32 Dose: 300 mg Cefepime HCl (Maxipime Iv 1 Gm Premix) 1 gm in 50 mls @ 100 mls/hr IVPB Q12H ANNELIESE; Protocol Last Admin: 03/31/18 17:39 Dose: 100 mls/hr Vancomycin/Sodium Chloride (Vancomycin 1 Gm/Ns 200 Ml) 1 gm in 200 mls @ 133.333 mls/hr IVPB Q24H ANNELIESE; Protocol Stop: 04/05/18 15:31 Last Admin: 03/31/18 14:54 Dose: 133.333 mls/hr Pantoprazole Sodium (Protonix Ec Tab) 40 mg PO DAILY ANNELIESE Last Admin: 03/31/18 10:25 Dose: 40 mg Pramipexole Dihydrochloride (Mirapex) 1 mg PO HS ANNELIESE Last Admin: 03/30/18 21:31 Dose: 1 mg Promethazine HCl/Codeine (Phenergan/Codeine Oral Syrup) 5 ml PO Q6 PRN PRN Reason: Cough Last Admin: 03/31/18 10:33 Dose: 5 ml - Labs Labs: 03/30/18 07:09 03/30/18 07:09
--- NOTE | 2018-03-31 21:00 | CP.PCM.PN ---
Subjective - Date & Time of Evaluation Date of Evaluation: 03/31/18 Time of Evaluation: 11:45 - Subjective Subjective: Patient seen and examined at bedside. Per nursing no acute events occurred overnight. Patient reports an improvement in shortness of breath. He denies any chest pain, fevers, chill, nausea, vomiting, headache, or any other complaints. Physical Examination - Head Exam Head Exam: ATRAUMATIC, NORMAL INSPECTION - Eye Exam Eye Exam: EOMI, Normal appearance Pupil Exam: NORMAL ACCOMODATION, PERRL - ENT Exam ENT Exam: Mucous Membranes Moist, Normal Exam - Neck Exam Neck Exam: Normal Inspection - Respiratory Exam Respiratory Exam: Clear to Ausculation Bilateral, NORMAL BREATHING PATTERN. absent: Stridor - Cardiovascular Exam Cardiovascular Exam: REGULAR RHYTHM, +S1, +S2 - GI/Abdominal Exam GI & Abdominal Exam: Soft, Normal Bowel Sounds - Extremities Exam Extremities Exam: Normal Inspection - Back Exam Back Exam: NORMAL INSPECTION - Neurological Exam Neurological Exam: Alert, Awake, CN II-XII Intact - Psychiatric Exam Psychiatric exam: Normal Affect, Normal Mood - Skin Skin Exam: Dry, Intact Assessment and Plan - Assessment and Plan (Free Text) Assessment: 83 year old male with no pertinent past medical history presents with shortness of breath in conjunction with cough for the past couple of weeks. Plan: 1.Pneumonia Chest xray: Right upper lobe pneumonia. Right lower lobe subsegmemental atelectasis and mucous plugging. Pulmonary consulted. Help appreciated. Medications: Acetaminophen 650mg PO Q6 PRN Rocephin 1gm IVPB Daily Duoneb 3ml INH RQ6 ANNELIESE Robitussin 200mg PO Q4H PRN Azithromycin 500mg IVPB Q24H 2.Shortness of breath. bnp 293 Echo EF:60-65% Grade I abnormal relaxation Mitral regurgitation mild Tricuspid regurgitation mild to moderate Pulmonary hypertension mild Pulmonary valvular regurgitation trace Cardiology consulted. Help appreciated. PPX -Lovenox -Protonix Objective - Vital Signs/Intake and Output Vital Signs (last 24 hours): Temp Pulse Resp BP Pulse Ox 97.8 F 92 H 20 104/58 L 20 L 03/31/18 16:07 03/31/18 16:07 03/31/18 16:07 03/31/18 16:07 03/31/18 16:07 Intake and Output: 03/31/18 04/01/18 18:59 06:59 Intake Total 1050 Balance 1050 - Medications Medications: Current Medications Acetaminophen (Tylenol 325mg Tab) 650 mg PO Q6 PRN PRN Reason: Pain, moderate (4-7) Last Admin: 03/26/18 21:21 Dose: 650 mg Albuterol/Ipratropium (Duoneb 3 Mg/0.5 Mg (3 Ml) Ud) 3 ml INH RQ6 ANNELIESE Last Admin: 03/31/18 20:53 Dose: 3 ml Enoxaparin Sodium (Lovenox) 40 mg SC DAILY ANNELIESE Last Admin: 03/31/18 10:26 Dose: 40 mg Gabapentin (Neurontin) 300 mg PO HS ANNELIESE Last Admin: 03/30/18 21:32 Dose: 300 mg Cefepime HCl (Maxipime Iv 1 Gm Premix) 1 gm in 50 mls @ 100 mls/hr IVPB Q12H ANNELIESE; Protocol Last Admin: 03/31/18 17:39 Dose: 100 mls/hr Vancomycin/Sodium Chloride (Vancomycin 1 Gm/Ns 200 Ml) 1 gm in 200 mls @ 133.333 mls/hr IVPB Q24H ANNELIESE; Protocol Stop: 04/05/18 15:31 Last Admin: 03/31/18 14:54 Dose: 133.333 mls/hr Pantoprazole Sodium (Protonix Ec Tab) 40 mg PO DAILY ANNELIESE Last Admin: 03/31/18 10:25 Dose: 40 mg Pramipexole Dihydrochloride (Mirapex) 1 mg PO HS ANNELIESE Last Admin: 03/30/18 21:31 Dose: 1 mg Promethazine HCl/Codeine (Phenergan/Codeine Oral Syrup) 5 ml PO Q6 PRN PRN Reason: Cough Last Admin: 03/31/18 10:33 Dose: 5 ml - Labs Labs: 03/30/18 07:09 03/30/18 07:09
[2018-04-01] MEDS: Albuterol-Ipratrop 3 mg / 0.5 (3 ml) UD INH SCH ×4 (01:21→13:45)
--- NOTE | 2018-04-01 01:49 | PN ---
DATE: 12/29/2018 SUBJECTIVE: The patient is still hypoxic, short of breath, coughing and wheezing and he is weak. The patient will continue to be on antibiotics intravenously. He will repeat chest x-ray and consult pulmonary until the patient is stabilized. PHYSICAL EXAMINATION: VITAL SIGNS: Blood pressure 104/58, pulse 92, respiratory rate 20, and temperature 97.8. LUNGS: Positive crackles on the right upper lobe, decreased air entry in the right upper lobe. CARDIOVASCULAR SYSTEM: S1, S2, regular. ABDOMEN: Soft. ASSESSMENT: 1. Pneumonia 2. Restless leg syndrome. PLAN: Continue IV antibiotics. Chest x-ray. Monitor the patient. James Houston MD
--- NOTE | 2018-04-01 02:19 | CON ---
DATE: 03/31/2018 INFECTIOUS DISEASE CONSULTATION REQUESTING PHYSICIAN: James Houston MD and Dr. Bhargav Yates, the pharmacy clinical specialist. REASON FOR CONSULT: Worsening pneumonia and cough. HISTORY OF PRESENT ILLNESS: The patient is an 83-year-old male with history of arthritis, restless leg syndrome, hypertension who was admitted on 03/25/2018 for shortness of breath, cough, and wheezing. The patient states he took outpatient therapy but failed. He was also having fever and chills with rigors. The patient denied any chest pain, but states that he had a very deep cough with thick yellow sputum production and inability to bring up the phlegm. He denied any previous history of pleurisy or TB in the past. The patient denied any nausea, vomiting or diarrhea. The patient was seen by pharmacy clinical specialist and atypical titers were sent and the patient was started on IV Rocephin and Zithromax. Mycoplasma IgG and IgM are negative. The patient underwent a CAT scan of the chest on 03/28/2018, which showed multilobar focal opacities in both interstitial and alveolar more marked on the right upper lobe, possibility of multifocal pneumonia, cannot rule out neoplasm. 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 The patient was continued on therapy but the repeat chest x-ray also showed worsening infiltrates increasing in intensity both lobes and right upper lobe is unchanged. There is no effusion. Zosyn was started today as reported by pharmacy clinical specialist and Rocephin was discontinued. Infectious disease consultation therefore was requested for worsening pneumonia and persistent cough. The patient denies any headache or any recent or past travel. He denies any recent sick contacts. PAST MEDICAL HISTORY: As above history of arthritis, bilateral knees and legs; chronic obstructive pulmonary disease and hypertension. SOCIAL HISTORY: The patient is a nonsmoker, non-ethanol user, denies any substance abuse. CURRENT MEDICATIONS: Reviewed as per [facility]. ALLERGIES: UNKNOWN. FAMILY HISTORY: Brother of COPD. REVIEW OF SYSTEMS: RESPIRATORY: Complains of persistent cough especially at night, expectoration, inability to bring up phlegm. Denies any hemoptysis. Denies any chest pains. CARDIOVASCULAR SYSTEM: Denies any palpitations, chest pains. GI AND : Unremarkable. No history of diarrhea, nausea or vomiting. No history of dysuria, hematuria, history of kidney stones. 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 PHYSICAL EXAMINATION: GENERAL: Elderly male, quite emaciated and skinny, chronically ill. VITAL SIGNS: Presently afebrile. Blood pressure 113/51, respirations 20 per minute, pulse of 89 per minute, afebrile 98.4. HEENT: Pupils equal and reactive to light and accommodation. Extraocular movements full. Fundus not well visualized. Sclerae nonicteric. Conjunctivae normal. JVP not elevated. LUNGS: Bilateral crackles posteriorly more on the right than the left. CARDIOVASCULAR SYSTEM: Sinus tachycardia. No murmur or gallop. Regular rhythm. ABDOMEN: Soft. Nontender. No mass is palpable. No ascites. EXTREMITIES: No cyanosis, clubbing or edema. DINING CAR STEWARD: Moves all extremities. Reflexes are equal and symmetrical. Babinski's are downgoing. Cranial nerves II to XII intact. LABORATORY DATA: WBC of 5.9, hemoglobin 11.9 and hematocrit 33.9, platelets 294. Creatinine 0.6, BUN of 8, calcium is fine 4.2. Liver function test on admission, bilirubin 1.5, AST 67, ALT 71. Repeat has not been done. UA was unremarkable. Mycoplasma IgM negative. Mycoplasma IgG negative. IMPRESSION: 1. 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 2. Rule out reflux, gastritis. 3. Exacerbation of chronic obstructive pulmonary disease. 4. Arthritis, bilateral knee and legs. 5. Hypertension by history. PLAN: Suggest yeung cultures, sputum Gram stain and culture, MRSA screen. We will get sed rate and CRP. Check atypical titers including Strep pneumoniae antigen, urine, influenza A and B, rapid antigen test, Chlamydia, serology. We will discontinue IV Zosyn. Start IV Maxipime 1 g every 12 hours for now starting today 03/31/2018. We will add IV vancomycin 1 g every 24 hours for staph and strep coverage, starting today 03/31/2018. Follow vancomycin trough levels prior to the fourth dose and keep between 10 and 20 mg/mL. The patient to be followed up closely and monitored. Case discussed with pharmacy clinical specialist, Dr. Bhargav Yates. We will follow along with you and make further recommendations as needed. Thank you very much for allowing me to participate in the care of your patient. Vidal Zhu MD [facility] # [id number]
[2018-04-01] MEDS: Cefepime IV 1 gm in Dextrose 1 GM/50 ML BAG IVPB SCH ×2 (05:20→17:14)
[2018-04-01 07:18] LABS: BASO # 0.1 K/uL (0.0-0.2); BASO % 1.3 % (0.0-2.0); EOS # 0.2 K/uL (0.0-0.7); EOS % 4.7 % (0.0-4.0); HEMOGLOBIN 11.7 g/dL (12.0-18.0); LYMPH # 0.9 K/uL (1.0-4.3); LYMPH % 18.3 % (20.0-40.0); MEAN CELL VOLUME 86.1 fL (80.0-94.0); MEAN CORPUSCULAR HGB CONC 34.9 g/dL (33.0-37.0); MEAN PLATELET VOLUME 8.5 fL (7.2-11.7); MONO # 0.4 K/uL (0.0-0.8); MONO % 7.9 % (0.0-10.0); NEUT # 3.3 K/uL (1.8-7.0); NEUT % 67.8 % (50.0-75.0); NRBC % 0.1 % (0.0-2.0); RBC 3.89 Mil/uL (4.40-5.90); RED CELL DISTRIBUTION WIDTH 13.6 % (11.5-14.5); WHITE BLOOD COUNT 4.8 K/uL (4.8-10.8)
[2018-04-01 07:39] LABS: ALBUMIN 3.3 g/dL (3.5-5.0); ALT/SGPT 69 U/L (21-72); AST/SGOT 38 U/L (17-59); BILIRUBIN,DIRECT 0.4 mg/dL (0.0-0.4); BLOOD UREA NITROGEN 10 mg/dL (9-20); CALCIUM 8.6 mg/dl (8.6-10.4); GFR NON-AFRICAN AMERICAN > 60
[2018-04-01] MEDS: Enoxaparin 40 mg Syringe SC SCH (10:02)
[2018-04-01] MEDS: Pantoprazole 40 mg EC Tab PO SCH (10:03)
--- NOTE | 2018-04-01 10:50 | CP.PCM.PN ---
Subjective - Date & Time of Evaluation Date of Evaluation: 04/01/18 Time of Evaluation: 09:00 - Subjective Subjective: Patient seen and examined Patient states cough is much better Denies heartburn or indigestion Denies difficulty swallowing or any cough while eating Afebrile Sitting comfortably in no distress Seen by infectious disease and antibiotics were changed Objective - Vital Signs/Intake and Output Vital Signs (last 24 hours): Temp Pulse Resp BP Pulse Ox 98.3 F 72 20 99/58 L 97 04/01/18 08:39 04/01/18 08:39 04/01/18 08:39 04/01/18 08:39 04/01/18 08:39 Intake and Output: 04/01/18 04/01/18 06:59 18:59 Intake Total 350 Balance 350 - Medications Medications: Current Medications Acetaminophen (Tylenol 325mg Tab) 650 mg PO Q6 PRN PRN Reason: Pain, moderate (4-7) Last Admin: 03/26/18 21:21 Dose: 650 mg Albuterol/Ipratropium (Duoneb 3 Mg/0.5 Mg (3 Ml) Ud) 3 ml INH RQ6 ANNELIESE Last Admin: 04/01/18 07:55 Dose: Not Given Enoxaparin Sodium (Lovenox) 40 mg SC DAILY ANNELIESE Last Admin: 04/01/18 10:02 Dose: 40 mg Gabapentin (Neurontin) 300 mg PO HS [facility] Last Admin: 03/31/18 21:38 Dose: 300 mg Cefepime HCl (Maxipime Iv 1 Gm Premix) 1 gm in 50 mls @ 100 mls/hr IVPB Q12H ANNELIESE; Protocol Last Admin: 04/01/18 05:20 Dose: 100 mls/hr Vancomycin/Sodium Chloride (Vancomycin 1 Gm/Ns 200 Ml) 1 gm in 200 mls @ 133.333 mls/hr IVPB Q24H ANNELIESE; Protocol Stop: 04/05/18 15:31 Last Admin: 03/31/18 14:54 Dose: 133.333 mls/hr Pantoprazole Sodium (Protonix Ec Tab) 40 mg PO DAILY ANNELIESE Last Admin: 04/01/18 10:03 Dose: 40 mg Pramipexole Dihydrochloride (Mirapex) 1 mg PO HS [facility] Last Admin: 03/31/18 21:38 Dose: 1 mg Promethazine HCl/Codeine (Phenergan/Codeine Oral Syrup) 5 ml PO Q6 PRN PRN Reason: Cough Last Admin: 03/31/18 21:38 Dose: 5 ml - Labs Labs: 04/01/18 07:10 04/01/18 07:10 - Head Exam Head Exam: ATRAUMATIC, NORMOCEPHALIC - Eye Exam Eye Exam: Normal appearance - ENT Exam ENT Exam: Mucous Membranes Moist - Neck Exam Neck Exam: Normal Inspection - Respiratory Exam Respiratory Exam: Rales - Cardiovascular Exam Cardiovascular Exam: REGULAR RHYTHM - GI/Abdominal Exam GI & Abdominal Exam: Soft, Normal Bowel Sounds Assessment and Plan (1) Pneumonia Assessment & Plan: Continue antibiotics as per infectious disease Continue Phenergan as needed Patient denies any signs and symptoms of acid reflux or aspiration Status: Acute
[2018-04-01] MEDS: Vancomycin 1 gm/NS 200 ml 1 GM/200 ML BAG IVPB SCH (14:34)
--- NOTE | 2018-04-01 20:56 | CP.PCM.PN ---
Subjective - Date & Time of Evaluation Date of Evaluation: 04/01/18 Time of Evaluation: 13:20 - Subjective Subjective: DICTATED Objective - Vital Signs/Intake and Output Vital Signs (last 24 hours): Temp Pulse Resp BP Pulse Ox 97.9 F 86 20 110/60 97 04/01/18 16:10 04/01/18 16:10 04/01/18 16:10 04/01/18 16:10 04/01/18 16:10 Intake and Output: 04/01/18 04/02/18 18:59 06:59 Intake Total 700 Balance 700 - Medications Medications: Current Medications Acetaminophen (Tylenol 325mg Tab) 650 mg PO Q6 PRN PRN Reason: Pain, moderate (4-7) Last Admin: 03/26/18 21:21 Dose: 650 mg Albuterol/Ipratropium (Duoneb 3 Mg/0.5 Mg (3 Ml) Ud) 3 ml INH RQ6 ANNELIESE Last Admin: 04/01/18 13:45 Dose: 3 ml Enoxaparin Sodium (Lovenox) 40 mg SC DAILY ANNELIESE Last Admin: 04/01/18 10:02 Dose: 40 mg Gabapentin (Neurontin) 300 mg PO HS ANNELIESE Last Admin: 03/31/18 21:38 Dose: 300 mg Cefepime HCl (Maxipime Iv 1 Gm Premix) 1 gm in 50 mls @ 100 mls/hr IVPB Q12H ANNELIESE; Protocol Last Admin: 04/01/18 17:14 Dose: 100 mls/hr Vancomycin/Sodium Chloride (Vancomycin 1 Gm/Ns 200 Ml) 1 gm in 200 mls @ 133 .333 mls/hr IVPB Q24H ANNELIESE; Protocol Stop: 04/05/18 15:31 Last Admin: 04/01/18 14:34 Dose: 133.333 mls/hr Pantoprazole Sodium (Protonix Ec Tab) 40 mg PO DAILY ANNELIESE Last Admin: 04/01/18 10:03 Dose: 40 mg Pramipexole Dihydrochloride (Mirapex) 1 mg PO HS ANNELIESE Last Admin: 03/31/18 21:38 Dose: 1 mg Promethazine HCl/Codeine (Phenergan/Codeine Oral Syrup) 5 ml PO Q6 PRN PRN Reason: Cough Last Admin: 03/31/18 21:38 Dose: 5 ml - Labs Labs: 04/01/18 07:10 04/01/18 07:10
[2018-04-01] MEDS: Promethazine/Cod 6.25mg-10mg/5ml Syr UD PO PRN (21:17)
--- NOTE | 2018-04-01 23:26 | CP.PCM.PN ---
Subjective - Date & Time of Evaluation Date of Evaluation: 04/01/18 Time of Evaluation: 23:25 - Subjective Subjective: CHIEF COMPLAINTS TODAY : AFEBRILE, +VE COUGH STILL CONGESTED ROS. HEENT : N. Resp : +VE COUGH, NO wheezing ,pleuritic CP ,or hemoptysis Cardio : No anginal CP, PND, orthopnea, palpitation GI : No abd.pain, n/v ,diarrhea or GI bleeding . 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 Musculoskel : No joint swelling , Derm : No rash Psych : Normal affect. Ext : No swelling ,calf pain PE. Pt. is alert awake in no distress. V.S As noted in the chart Head ,ear nose,throat and eyes : Normal. Neck : Supple with normal carotids. Lungs: B/L RHONCHI Heart : S1 & S2 normal with S4. No murmur. Abd : Soft non tender with normal bowel sounds. Neuro : Moves all ext. with no localized deficit. Ext : No edema with intact pulses.Non tender calves Derm : No rashes or decubitus ulcer. LABS/RADIOLOGY: ESR 120 CREAT 0.6/BUN 20 -VE MRSA SCREEN WBC 4.8 -VE INFLU A/B AG -VE UR.AG . LEGIONELLA -VE MYCOPLASMA IGM : IMPRESSION; -MULTI LOBAR PNEUMONIA R/O ATYPICAL PNEUMONIA R/O CHRONIC ASPIRATION. 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 -EXACERBATION OF COPD. -LEUKOPENIA R/O HIV -ARTHRITIS ( B/L KNEES ) -HYPERTENSION. PLAN; HIV 1/2 ANTIBODY LYMPHOCYTE SUBSET STUDY PERTUSSIS/PARA PERTUSSIS DNA/ AND SEROLOGY F/U SPUTUM CULTURES CONTINUE iv CEFEPIME 1 G EVERY 12 HOURLY 03/31/18. CONTINUEIV VANCOMYCIN 1 G EVERY 24 HOURLY. 03/31/18. ADD IV ZITHROMAX 500MG IV DAILY 04/02/18 fOLLOW-UP VANCO TROUGH PRIOR TO THE FOURTH DOSE AND KEEP BETWEEN 10 AND 20 MG/l. fOLLOW-UP RENAL FUNCTIONS CLOSELY Objective - Vital Signs/Intake and Output Vital Signs (last 24 hours): Temp Pulse Resp BP Pulse Ox 97.9 F 86 20 110/60 97 04/01/18 16:10 04/01/18 16:10 04/01/18 16:10 04/01/18 16:10 04/01/18 16:10 Intake and Output: 04/01/18 04/02/18 18:59 06:59 Intake Total 700 Balance 700 - Medications Medications: Current Medications Acetaminophen (Tylenol 325mg Tab) 650 mg PO Q6 PRN PRN Reason: Pain, moderate (4-7) Last Admin: 03/26/18 21:21 Dose: 650 mg Albuterol/Ipratropium (Duoneb 3 Mg/0.5 Mg (3 Ml) Ud) 3 ml INH RQ6 ANNELIESE Last Admin: 04/01/18 13:45 Dose: 3 ml Enoxaparin Sodium (Lovenox) 40 mg SC DAILY ANNELIESE Last Admin: 04/01/18 10:02 Dose: 40 mg Gabapentin (Neurontin) 300 mg PO HS ANNELIESE Last Admin: 04/01/18 21:12 Dose: 300 mg Cefepime HCl (Maxipime Iv 1 Gm Premix) 1 gm in 50 mls @ 100 mls/hr IVPB Q12H ANNELIESE; Protocol Last Admin: 04/01/18 17:14 Dose: 100 mls/hr Vancomycin/Sodium Chloride (Vancomycin 1 Gm/Ns 200 Ml) 1 gm in 200 mls @ 133.333 mls/hr IVPB Q24H ANNEILESE; Protocol Stop: 04/05/18 15:31 Last Admin: 04/01/18 14:34 Dose: 133.333 mls/hr Pantoprazole Sodium (Protonix Ec Tab) 40 mg PO DAILY ANNELIESE Last Admin: 04/01/18 10:03 Dose: 40 mg Pramipexole Dihydrochloride (Mirapex) 1 mg PO HS ANNELIESE Last Admin: 04/01/18 21:12 Dose: 1 mg Promethazine HCl/Codeine (Phenergan/Codeine Oral Syrup) 5 ml PO Q6 PRN PRN Reason: Cough Last Admin: 04/01/18 21:17 Dose: 5 ml - Labs Labs: 04/01/18 07:10 04/01/18 07:10 Assessment and Plan (1) Dyspnea Status: Acute (2) Pneumonia Status: Acute
--- NOTE | 2018-04-02 00:18 | CP.PCM.PN ---
Subjective - Date & Time of Evaluation Date of Evaluation: 04/01/18 Time of Evaluation: 16:15 - Subjective Subjective: Patient seen and evaluated denies chest pain and dyspnea Physical Examination - Head Exam Head Exam: ATRAUMATIC, NORMAL INSPECTION - Eye Exam Eye Exam: EOMI, Normal appearance Pupil Exam: NORMAL ACCOMODATION, PERRL - ENT Exam ENT Exam: Mucous Membranes Moist, Normal Exam - Neck Exam Neck Exam: Normal Inspection - Respiratory Exam Respiratory Exam: Clear to Ausculation Bilateral, NORMAL BREATHING PATTERN. absent: Stridor - Cardiovascular Exam Cardiovascular Exam: REGULAR RHYTHM, +S1, +S2 - GI/Abdominal Exam GI & Abdominal Exam: Soft, Normal Bowel Sounds - Extremities Exam Extremities Exam: Normal Inspection - Back Exam Back Exam: NORMAL INSPECTION - Neurological Exam Neurological Exam: Alert, Awake, CN II-XII Intact - Psychiatric Exam Psychiatric exam: Normal Affect, Normal Mood - Skin Skin Exam: Dry, Intact Assessment and Plan - Assessment and Plan (Free Text) Assessment: 83 year old male with no pertinent past medical history presents with shortness of breath in conjunction with cough for the past couple of weeks. Plan: 1.Pneumonia Chest xray: Right upper lobe pneumonia. Right lower lobe subsegmemental atelectasis and mucous plugging. Pulmonary consulted. Help appreciated. Medications: Acetaminophen 650mg PO Q6 PRN Rocephin 1gm IVPB Daily Duoneb 3ml INH RQ6 ANNELIESE Robitussin 200mg PO Q4H PRN Azithromycin 500mg IVPB Q24H 2.Shortness of breath. bnp 293 Echo EF:60-65% Grade I abnormal relaxation Mitral regurgitation mild Tricuspid regurgitation mild to moderate Pulmonary hypertension mild Pulmonary valvular regurgitation trace Cardiology consulted. Help appreciated. PPX -Lovenox -Protonix Objective - Vital Signs/Intake and Output Vital Signs (last 24 hours): Temp Pulse Resp BP Pulse Ox 98.1 F 79 20 118/62 99 04/02/18 00:04 04/02/18 00:04 04/02/18 00:04 04/02/18 00:04 04/02/18 00:04 Intake and Output: 04/01/18 04/02/18 18:59 06:59 Intake Total 700 Balance 700 - Medications Medications: Current Medications Acetaminophen (Tylenol 325mg Tab) 650 mg PO Q6 PRN PRN Reason: Pain, moderate (4-7) Last Admin: 03/26/18 21:21 Dose: 650 mg Albuterol/Ipratropium (Duoneb 3 Mg/0.5 Mg (3 Ml) Ud) 3 ml INH RQ6 ANNELIESE Last Admin: 04/01/18 13:45 Dose: 3 ml Enoxaparin Sodium (Lovenox) 40 mg SC DAILY ANNELIESE Last Admin: 04/01/18 10:02 Dose: 40 mg Gabapentin (Neurontin) 300 mg PO HS ANNELIESE Last Admin: 04/01/18 21:12 Dose: 300 mg Cefepime HCl (Maxipime Iv 1 Gm Premix) 1 gm in 50 mls @ 100 mls/hr IVPB Q12H ANNELIESE; Protocol Last Admin: 04/01/18 17:14 Dose: 100 mls/hr Vancomycin/Sodium Chloride (Vancomycin 1 Gm/Ns 200 Ml) 1 gm in 200 mls @ 133.333 mls/hr IVPB Q24H ANNELIESE; Protocol Stop: 04/05/18 15:31 Last Admin: 04/01/18 14:34 Dose: 133.333 mls/hr Pantoprazole Sodium (Protonix Ec Tab) 40 mg PO DAILY ANNELIESE Last Admin: 04/01/18 10:03 Dose: 40 mg Pramipexole Dihydrochloride (Mirapex) 1 mg PO HS ANNELIESE Last Admin: 04/01/18 21:12 Dose: 1 mg Promethazine HCl/Codeine (Phenergan/Codeine Oral Syrup) 5 ml PO Q6 PRN PRN Reason: Cough Last Admin: 04/01/18 21:17 Dose: 5 ml - Labs Labs: 04/01/18 07:10 04/01/18 07:10
[2018-04-02] MEDS: Albuterol-Ipratrop 3 mg / 0.5 (3 ml) UD INH SCH ×3 (01:38→13:48)
--- NOTE | 2018-04-02 01:48 | PN ---
DATE: 04/01/2018 SUBJECTIVE: The patient Mr. Weeks has been seen by Infectious Disease and he was started on vancomycin as his infiltrate is persistent and not improving. He is less short of breath, less cough, less wheezing. PHYSICAL EXAMINATION: VITAL SIGNS: Blood pressure 110/60, pulse 86, respiratory rate 20, temperature 97.9. LUNGS: Bilateral crackles. Decreased air entry. CVS: S1 and S2 regular. ABDOMEN: Soft. ASSESSMENT: 1. Pneumonia. 2. Respiratory syndrome. PLAN: Continue cefepime and Avelox. Monitor patient. James Houston MD
[2018-04-02] MEDS: Cefepime IV 1 gm in Dextrose 1 GM/50 ML BAG IVPB SCH ×2 (05:15→17:26)
[2018-04-02] MEDS: Enoxaparin 40 mg Syringe SC SCH (09:23)
[2018-04-02] MEDS: Pantoprazole 40 mg EC Tab PO SCH (09:23)
--- NOTE | 2018-04-02 11:01 | CP.PCM.PN ---
Subjective - Date & Time of Evaluation Date of Evaluation: 04/02/18 Time of Evaluation: 10:59 - Subjective Subjective: Pulmonary Folow up, Covering Dr Durant The Patient was seen and examined at the bedside, Medical records reviewed, and management issues were discussed and formulated with the house staff. Events reviewed Mr Weeks is a 83 years old male with PMHx of Arthritis (bilateral knee/leg) Who presented to the ER for shortness of breath, cough, rhinorrhea and nasal congestion for the past 2 weeks. Patient treated with cough medicine as outpatient without any relief. Denies fever/chills, chest pain Admitted with pneumonia, started on broad IV Antibiotics Doing better, comfortable, in no distress Breathing and cough much improved Afebrile Saturation 96-99% on 2L nasal cannula No fever/chills No chhest pain CXR 03/25: Right upper lobe pneumonia. Right lower lobe subsegmental atelectasis and mucous plugging however superimposed pneumonia CXR 03/31: persistent Bilateral multilobar pneumonia Increased right basilar infiltrate & unchanged right upper lobe and left basilar infiltrates. No pleural effusion or pulmonary vascular congestion. Blood C/S x2 negative Sputum C/S Pending + MRSA nares Objective - Vital Signs/Intake and Output Vital Signs (last 24 hours): Temp Pulse Resp BP Pulse Ox 98.1 F 77 20 103/55 L 96 04/02/18 08:00 04/02/18 08:00 04/02/18 08:00 04/02/18 08:00 04/02/18 08:00 Intake and Output: 04/02/18 04/02/18 06:59 18:59 Intake Total 450 Balance 450 - Medications Medications: Current Medications Acetaminophen (Tylenol 325mg Tab) 650 mg PO Q6 PRN PRN Reason: Pain, moderate (4-7) Last Admin: 03/26/18 21:21 Dose: 650 mg Albuterol/Ipratropium (Duoneb 3 Mg/0.5 Mg (3 Ml) Ud) 3 ml INH RQ6 ANNELIESE Last Admin: 04/02/18 08:12 Dose: 3 ml Enoxaparin Sodium (Lovenox) 40 mg SC DAILY ANNELIESE Last Admin: 04/02/18 09:23 Dose: 40 mg Gabapentin (Neurontin) 300 mg PO HS [facility] Last Admin: 04/01/18 21:12 Dose: 300 mg Cefepime HCl (Maxipime Iv 1 Gm Premix) 1 gm in 50 mls @ 100 mls/hr IVPB Q12H ANNELIESE; Protocol Last Admin: 04/02/18 05:15 Dose: 100 mls/hr Vancomycin/Sodium Chloride (Vancomycin 1 Gm/Ns 200 Ml) 1 gm in 200 mls @ 133.333 mls/hr IVPB Q24H ANNELIESE; Protocol Stop: 04/05/18 15:31 Last Admin: 04/01/18 14:34 Dose: 133.333 mls/hr Pantoprazole Sodium (Protonix Ec Tab) 40 mg PO DAILY ANNELIESE Last Admin: 04/02/18 09:23 Dose: 40 mg Pramipexole Dihydrochloride (Mirapex) 1 mg PO HS ANNELIESE Last Admin: 04/01/18 21:12 Dose: 1 mg Promethazine HCl/Codeine (Phenergan/Codeine Oral Syrup) 5 ml PO Q6 PRN PRN Reason: Cough Last Admin: 04/01/18 21:17 Dose: 5 ml - Labs Labs: 04/01/18 07:10 04/01/18 07:10 Assessment and Plan (1) Pneumonia Status: Acute (2) Atelectasis Status: Acute (3) Dyspnea Status: Acute (4) Low back pain Status: Acute
[2018-04-02] MEDS: Azithromycin 500 MG in Sodium Chloride 0.9% 250 ML IVPB SCH (13:59)
[2018-04-02] MEDS: Vancomycin 1 gm/NS 200 ml 1 GM/200 ML BAG IVPB SCH (14:35)
[2018-04-02] MEDS ORDERED: Benzocaine/Menthol (Cepacol) Lozenge MT PRN (15:20)
--- NOTE | 2018-04-02 20:15 | CP.PCM.PN ---
Subjective - Date & Time of Evaluation Date of Evaluation: 04/02/18 Time of Evaluation: 09:21 - Subjective Subjective: dictated Objective - Vital Signs/Intake and Output Vital Signs (last 24 hours): Temp Pulse Resp BP Pulse Ox 98.0 F 93 H 20 121/63 96 04/02/18 16:07 04/02/18 16:07 04/02/18 16:07 04/02/18 16:07 04/02/18 16:07 Intake and Output: 04/02/18 04/03/18 18:59 06:59 Intake Total 700 Balance 700 - Medications Medications: Current Medications Acetaminophen (Tylenol 325mg Tab) 650 mg PO Q6 PRN PRN Reason: Pain, moderate (4-7) Last Admin: 03/26/18 21:21 Dose: 650 mg Albuterol/Ipratropium (Duoneb 3 Mg/0.5 Mg (3 Ml) Ud) 3 ml INH RQ6 ANNELIESE Last Admin: 04/02/18 13:48 Dose: 3 ml Benzocaine/Menthol (Cepacol Sore Throat) 1 ishmael MT Q2H PRN PRN Reason: Sore Throat Last Admin: 04/02/18 17:25 Dose: 1 ishmael Gabapentin (Neurontin) 300 mg PO HS ANNELIESE Last Admin: 04/01/18 21:12 Dose: 300 mg Cefepime HCl (Maxipime Iv 1 Gm Premix) 1 gm in 50 mls @ 100 mls/hr IVPB Q12H ANNELIESE; Protocol Last Admin: 04/02/18 17:26 Dose: 100 mls/hr Vancomycin/Sodium Chloride (Vancomycin 1 Gm/Ns 200 Ml) 1 gm in 200 mls @ 133.333 mls/hr IVPB Q24H ANNELIESE; Protocol Stop: 04/05/18 15:31 Last Admin: 04/02/18 14:35 Dose: 133.333 mls/hr Azithromycin 500 mg/ Sodium (Chloride) 250 mls @ 250 mls/hr IVPB DAILY ANNELIESE; Protocol Last Admin: 04/02/18 13:59 Dose: 250 mls/hr Pantoprazole Sodium (Protonix Ec Tab) 40 mg PO DAILY ANNELIESE Last Admin: 04/02/18 09:23 Dose: 40 mg Pramipexole Dihydrochloride (Mirapex) 1 mg PO HS ANNELIESE Last Admin: 04/01/18 21:12 Dose: 1 mg Promethazine HCl/Codeine (Phenergan/Codeine Oral Syrup) 5 ml PO Q6 PRN PRN Reason: Cough Last Admin: 04/01/18 21:17 Dose: 5 ml - Labs Labs: 04/01/18 07:10 04/01/18 07:10
[2018-04-02] MEDS: Promethazine/Cod 6.25mg-10mg/5ml Syr UD PO PRN (21:18)
--- NOTE | 2018-04-02 22:31 | CP.PCM.PN ---
Subjective - Date & Time of Evaluation Date of Evaluation: 04/02/18 Time of Evaluation: 14:25 - Subjective Subjective: Patient seen and evaluated No cardiac events noted Physical Examination - Head Exam Head Exam: ATRAUMATIC, NORMAL INSPECTION - Eye Exam Eye Exam: EOMI, Normal appearance Pupil Exam: NORMAL ACCOMODATION, PERRL - ENT Exam ENT Exam: Mucous Membranes Moist, Normal Exam - Neck Exam Neck Exam: Normal Inspection - Respiratory Exam Respiratory Exam: Clear to Ausculation Bilateral, NORMAL BREATHING PATTERN. absent: Stridor - Cardiovascular Exam Cardiovascular Exam: REGULAR RHYTHM, +S1, +S2 - GI/Abdominal Exam GI & Abdominal Exam: Soft, Normal Bowel Sounds - Extremities Exam Extremities Exam: Normal Inspection - Back Exam Back Exam: NORMAL INSPECTION - Neurological Exam Neurological Exam: Alert, Awake, CN II-XII Intact - Psychiatric Exam Psychiatric exam: Normal Affect, Normal Mood - Skin Skin Exam: Dry, Intact Assessment and Plan - Assessment and Plan (Free Text) Assessment: 83 year old male with no pertinent past medical history presents with shortness of breath in conjunction with cough for the past couple of weeks. Plan: 1.Pneumonia Chest xray: Right upper lobe pneumonia. Right lower lobe subsegmemental atelectasis and mucous plugging. Pulmonary consulted. Help appreciated. Medications: Acetaminophen 650mg PO Q6 PRN Rocephin 1gm IVPB Daily Duoneb 3ml INH RQ6 ANNELIESE Robitussin 200mg PO Q4H PRN Azithromycin 500mg IVPB Q24H 2.Shortness of breath. bnp 293 Echo EF:60-65% Grade I abnormal relaxation Mitral regurgitation mild Tricuspid regurgitation mild to moderate Pulmonary hypertension mild Pulmonary valvular regurgitation trace Cardiology consulted. Help appreciated. PPX -Lovenox -Protonix Objective - Vital Signs/Intake and Output Vital Signs (last 24 hours): Temp Pulse Resp BP Pulse Ox 98.0 F 93 H 20 121/63 96 04/02/18 16:07 04/02/18 16:07 04/02/18 16:07 04/02/18 16:07 04/02/18 16:07 Intake and Output: 04/02/18 04/03/18 18:59 06:59 Intake Total 700 Balance 700 - Medications Medications: Current Medications Acetaminophen (Tylenol 325mg Tab) 650 mg PO Q6 PRN PRN Reason: Pain, moderate (4-7) Last Admin: 03/26/18 21:21 Dose: 650 mg Albuterol/Ipratropium (Duoneb 3 Mg/0.5 Mg (3 Ml) Ud) 3 ml INH RQ6 ANNELIESE Last Admin: 04/02/18 13:48 Dose: 3 ml Benzocaine/Menthol (Cepacol Sore Throat) 1 ishmael MT Q2H PRN PRN Reason: Sore Throat Last Admin: 04/02/18 17:25 Dose: 1 ishmael Gabapentin (Neurontin) 300 mg PO HS ANNELIESE Last Admin: 04/02/18 21:18 Dose: 300 mg Cefepime HCl (Maxipime Iv 1 Gm Premix) 1 gm in 50 mls @ 100 mls/hr IVPB Q12H ANNELIESE; Protocol Last Admin: 04/02/18 17:26 Dose: 100 mls/hr Vancomycin/Sodium Chloride (Vancomycin 1 Gm/Ns 200 Ml) 1 gm in 200 mls @ 133.333 mls/hr IVPB Q24H ANNELIESE; Protocol Stop: 04/05/18 15:31 Last Admin: 04/02/18 14:35 Dose: 133.333 mls/hr Azithromycin 500 mg/ Sodium (Chloride) 250 mls @ 250 mls/hr IVPB DAILY ANNELIESE; Protocol Last Admin: 04/02/18 13:59 Dose: 250 mls/hr Pantoprazole Sodium (Protonix Ec Tab) 40 mg PO DAILY ANNELIESE Last Admin: 04/02/18 09:23 Dose: 40 mg Pramipexole Dihydrochloride (Mirapex) 1 mg PO HS ANNELIESE Last Admin: 04/02/18 21:18 Dose: 1 mg Promethazine HCl/Codeine (Phenergan/Codeine Oral Syrup) 5 ml PO Q6 PRN PRN Reason: Cough Last Admin: 04/02/18 21:18 Dose: 5 ml - Labs Labs: 04/01/18 07:10 04/01/18 07:10
--- NOTE | 2018-04-02 22:46 | CP.PCM.PN ---
Subjective - Date & Time of Evaluation Date of Evaluation: 04/02/18 Time of Evaluation: 22:46 - Subjective Subjective: CHIEF COMPLAINTS TODAY : AFEBRILE, +VE COUGH STILL CONGESTED saturation 96-97%0n 2L NC. ROS. HEENT : N. Resp : +VE COUGH, NO wheezing ,pleuritic CP ,or hemoptysis Cardio : No anginal CP, PND, orthopnea, palpitation GI : No abd.pain, n/v ,diarrhea or GI bleeding . WOUND TREATMENT RN : No headache, vertigo, focal deficit. Musculoskel : No joint swelling , Derm : No rash Psych : Normal affect. Ext : No swelling ,calf pain PE. Pt. is alert awake in no distress. V.S As noted in the chart Head ,ear nose,throat and eyes : Normal. Neck : Supple with normal carotids. Lungs: B/L RHONCHI Heart : S1 & S2 normal with S4. No murmur. Abd : Soft non tender with normal bowel sounds. Neuro : Moves all ext. with no localized deficit. Ext : No edema with intact pulses.Non tender calves Derm : No rashes or decubitus ulcer. LABS/RADIOLOGY: ESR 120 CREAT 0.6/BUN 20 -VE MRSA SCREEN WBC 4.8 -VE INFLU A/B AG -VE UR.AG . LEGIONELLA -VE MYCOPLASMA IGM : IMPRESSION; -MULTI LOBAR PNEUMONIA R/O ATYPICAL PNEUMONIA R/O CHRONIC ASPIRATION. 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 -EXACERBATION OF COPD. -LEUKOPENIA R/O HIV -ARTHRITIS ( B/L KNEES ) -HYPERTENSION. PLAN; CONTINUE iv CEFEPIME 1 G EVERY 12 HOURLY 03/31/18. CONTINUEIV VANCOMYCIN 1 G EVERY 24 HOURLY. 03/31/18. ON IV ZITHROMAX 500MG IV DAILY 04/02/18 fOLLOW-UP VANCO TROUGH PRIOR TO THE FOURTH DOSE AND KEEP BETWEEN 10 AND 20 MG/l. fOLLOW-UP RENAL FUNCTIONS CLOSELY HIV 1/2 ANTIBODY-P LYMPHOCYTE SUBSET STUDY-P PERTUSSIS/PARA PERTUSSIS DNA/ AND SEROLOGY-P F/U SPUTUM CULTURES-P Objective - Vital Signs/Intake and Output Vital Signs (last 24 hours): Temp Pulse Resp BP Pulse Ox 98.0 F 93 H 20 121/63 96 04/02/18 16:07 04/02/18 16:07 04/02/18 16:07 04/02/18 16:07 04/02/18 16:07 Intake and Output: 04/02/18 04/03/18 18:59 06:59 Intake Total 700 Balance 700 - Medications Medications: Current Medications Acetaminophen (Tylenol 325mg Tab) 650 mg PO Q6 PRN PRN Reason: Pain, moderate (4-7) Last Admin: 03/26/18 21:21 Dose: 650 mg Albuterol/Ipratropium (Duoneb 3 Mg/0.5 Mg (3 Ml) Ud) 3 ml INH RQ6 ANNELIESE Last Admin: 04/02/18 13:48 Dose: 3 ml Benzocaine/Menthol (Cepacol Sore Throat) 1 ishmael MT Q2H PRN PRN Reason: Sore Throat Last Admin: 04/02/18 17:25 Dose: 1 ishmael Gabapentin (Neurontin) 300 mg PO HS ANNELIESE Last Admin: 04/02/18 21:18 Dose: 300 mg Cefepime HCl (Maxipime Iv 1 Gm Premix) 1 gm in 50 mls @ 100 mls/hr IVPB Q12H ANNELIESE; Protocol Last Admin: 04/02/18 17:26 Dose: 100 mls/hr Vancomycin/Sodium Chloride (Vancomycin 1 Gm/Ns 200 Ml) 1 gm in 200 mls @ 133.333 mls/hr IVPB Q24H ANNELIESE; Protocol Stop: 04/05/18 15:31 Last Admin: 04/02/18 14:35 Dose: 133.333 mls/hr Azithromycin 500 mg/ Sodium (Chloride) 250 mls @ 250 mls/hr IVPB DAILY ANNELIESE; Protocol Last Admin: 04/02/18 13:59 Dose: 250 mls/hr Pantoprazole Sodium (Protonix Ec Tab) 40 mg PO DAILY ANNELIESE Last Admin: 04/02/18 09:23 Dose: 40 mg Pramipexole Dihydrochloride (Mirapex) 1 mg PO HS ANNELIESE Last Admin: 04/02/18 21:18 Dose: 1 mg Promethazine HCl/Codeine (Phenergan/Codeine Oral Syrup) 5 ml PO Q6 PRN PRN Reason: Cough Last Admin: 04/02/18 21:18 Dose: 5 ml - Labs Labs: 04/01/18 07:10 04/01/18 07:10 Assessment and Plan (1) Dyspnea Status: Acute (2) Pneumonia Status: Acute
--- NOTE | 2018-04-03 01:12 | PN ---
DATE: 04/02/2018 SUBJECTIVE: The patient is afebrile, on antibiotics including vancomycin. No nausea, vomiting. PHYSICAL EXAMINATION: VITAL SIGNS: Blood pressure 121/62, pulse 93, respiratory rate 20, temperature 98. LUNGS: Bilateral rales and rhonchi. CARDIOVASCULAR SYSTEM: S1, S2, regular. ABDOMEN: Soft. ASSESSMENT: 1. Pneumonia. 2. Restless legs syndrome. PLAN: Continue antibiotics. Monitor the patient. James Houston MD
[2018-04-03] MEDS: Albuterol-Ipratrop 3 mg / 0.5 (3 ml) UD INH SCH ×4 (02:19→19:50)
[2018-04-03] MEDS: Cefepime IV 1 gm in Dextrose 1 GM/50 ML BAG IVPB SCH ×2 (05:00→17:21)
--- NOTE | 2018-04-03 09:39 | CP.PCM.PN ---
<Raza Burgos - Last Filed: 04/03/18 17:19> Subjective - Date & Time of Evaluation Date of Evaluation: 04/03/18 Time of Evaluation: 09:38 - Subjective Subjective: PGY-2 Progress Note: Dr. Dodge Service Patient seen and examined at bedside. Per nursing no acute events occurred overnight. Patient denies any chest pain, fevers, chills, shortness of breath, nausea, vomiting, or any other complaints. Objective - Vital Signs/Intake and Output Vital Signs (last 24 hours): Temp Pulse Resp BP Pulse Ox 98.4 F 70 20 122/72 99 04/03/18 08:00 04/03/18 08:00 04/03/18 08:00 04/03/18 08:00 04/03/18 08:00 Intake and Output: 04/03/18 04/03/18 06:59 18:59 Intake Total 350 Balance 350 - Medications Medications: Current Medications Acetaminophen (Tylenol 325mg Tab) 650 mg PO Q6 PRN PRN Reason: Pain, moderate (4-7) Last Admin: 03/26/18 21:21 Dose: 650 mg Albuterol/Ipratropium (Duoneb 3 Mg/0.5 Mg (3 Ml) Ud) 3 ml INH RQ6 ROBIN Last Admin: 04/03/18 07:50 Dose: 3 ml Benzocaine/Menthol (Cepacol Sore Throat) 1 ishmael MT Q2H PRN PRN Reason: Sore Throat Last Admin: 04/02/18 17:25 Dose: 1 ishmael Gabapentin (Neurontin) 300 mg PO HS ROBIN Last Admin: 04/02/18 21:18 Dose: 300 mg Cefepime HCl (Maxipime Iv 1 Gm Premix) 1 gm in 50 mls @ 100 mls/hr IVPB Q12H S ; Protocol Last Admin: 04/03/18 05:00 Dose: 100 mls/hr Vancomycin/Sodium Chloride (Vancomycin 1 Gm/Ns 200 Ml) 1 gm in 200 mls @ 133.333 mls/hr IVPB Q24H ROBIN; Protocol Stop: 04/05/18 15:31 Last Admin: 04/02/18 14:35 Dose: 133.333 mls/hr Azithromycin 500 mg/ Sodium (Chloride) 250 mls @ 250 mls/hr IVPB DAILY ROBIN; Protocol Last Admin: 04/02/18 13:59 Dose: 250 mls/hr Pantoprazole Sodium (Protonix Ec Tab) 40 mg PO DAILY ROBIN Last Admin: 04/02/18 09:23 Dose: 40 mg Pramipexole Dihydrochloride (Mirapex) 1 mg PO HS ROBIN Last Admin: 04/02/18 21:18 Dose: 1 mg Promethazine HCl/Codeine (Phenergan/Codeine Oral Syrup) 5 ml PO Q6 PRN PRN Reason: Cough Last Admin: 04/02/18 21:18 Dose: 5 ml - Labs Labs: 04/01/18 07:10 04/01/18 07:10 - Head Exam Head Exam: ATRAUMATIC, NORMAL INSPECTION - Eye Exam Eye Exam: EOMI, Normal appearance, PERRL. absent: Periorbital tenderness Pupil Exam: NORMAL ACCOMODATION, PERRL. absent: Irregular, Unequal - ENT Exam ENT Exam: Mucous Membranes Moist, Normal Oropharynx - Respiratory Exam Respiratory Exam: Clear to Ausculation Bilateral, NORMAL BREATHING PATTERN. abs ent: Prolonged Expiratory Phase, Respiratory Distress - Cardiovascular Exam Cardiovascular Exam: REGULAR RHYTHM, +S1, +S2 - GI/Abdominal Exam GI & Abdominal Exam: Soft, Normal Bowel Sounds. absent: Hyperactive Bowel Sound s - Neurological Exam Neurological Exam: Alert, Awake, Oriented x3 - Psychiatric Exam Psychiatric exam: Normal Affect, Normal Mood - Skin Skin Exam: Dry, Intact Assessment and Plan - Assessment and Plan (Free Text) Assessment: 83 year old male with no pertinent past medical history presents with shortness of breath in conjunction with cough for the past couple of weeks. Plan: 1.Pneumonia Chest xray: Right upper lobe pneumonia. Right lower lobe subsegmemental atelectasis and mucous plugging. Pulmonary consulted. Help appreciated. Medications: Acetaminophen 650mg PO Q6 PRN Duoneb 3ml INH RQ6 ROBIN Robitussin 200mg PO Q4H PRN Azithromycin 500mg IVPB Q24H Cefepime 1gm IVPB Q12 ROBIN Cepacol 1 ishmael MT q2h prn [id number] PO Q6 PRN Vancomycin 1gm ivpbd q24 robin 2.Shortness of breath. bnp 293 Echo EF:60-65% Grade I abnormal relaxation Mitral regurgitation mild Tricuspid regurgitation mild to moderate Pulmonary hypertension mild Pulmonary valvular regurgitation trace Cardiology consulted. Help appreciated. PPX -Lovenox -Protonix Plan discussed with Attending Dr. Dodge. Will sign off at this time. Patient shortness of breath likely in relation to pulmonary process. Feel free to re-consult if necessary in the future. Raza Burgos, PGY-2 <Bartolo Dodge - Last Filed: 04/03/18 22:06> Objective - Vital Signs/Intake and Output Vital Signs (last 24 hours): Temp Pulse Resp BP Pulse Ox 97.7 F 83 20 105/55 L 96 04/03/18 16:03 04/03/18 16:03 04/03/18 16:03 04/03/18 16:03 04/03/18 16:03 - Medications Medications: Current Medications Acetaminophen (Tylenol 325mg Tab) 650 mg PO Q6 PRN PRN Reason: Pain, moderate (4-7) Last Admin: 03/26/18 21:21 Dose: 650 mg Albuterol/Ipratropium (Duoneb 3 Mg/0.5 Mg (3 Ml) Ud) 3 ml INH RQ6 ROBIN Last Admin: 04/03/18 19:50 Dose: 3 ml Benzocaine/Menthol (Cepacol Sore Throat) 1 ishmael MT Q2H PRN PRN Reason: Sore Throat Last Admin: 04/02/18 17:25 Dose: 1 ishmael Gabapentin (Neurontin) 300 mg PO HS ROBIN Last Admin: 04/03/18 21:15 Dose: 300 mg Cefepime HCl (Maxipime Iv 1 Gm Premix) 1 gm in 50 mls @ 100 mls/hr IVPB Q12H ROBIN; Protocol Last Admin: 04/03/18 17:21 Dose: 100 mls/hr Vancomycin/Sodium Chloride (Vancomycin 1 Gm/Ns 200 Ml) 1 gm in 200 mls @ 133.333 mls/hr IVPB Q24H ROBIN; Protocol Stop: 04/05/18 15:31 Last Admin: 04/03/18 14:30 Dose: 133.333 mls/hr Azithromycin 500 mg/ Sodium (Chloride) 250 mls @ 250 mls/hr IVPB DAILY ROBIN; Protocol Last Admin: 04/03/18 09:59 Dose: 250 mls/hr Nystatin (Nystatin Oral Susp) 5 ml PO QID ROBIN Last Admin: 04/03/18 21:23 Dose: 5 ml Pantoprazole Sodium (Protonix Ec Tab) 40 mg PO DAILY ROBIN Last Admin: 04/03/18 09:59 Dose: 40 mg Pramipexole Dihydrochloride (Mirapex) 1 mg PO HS ROBIN Last Admin: 04/03/18 21:15 Dose: 1 mg Promethazine HCl/Codeine (Phenergan/Codeine Oral Syrup) 5 ml PO Q6 PRN PRN Reason: Cough Last Admin: 04/03/18 21:15 Dose: 5 ml - Labs Labs: 04/03/18 11:30 04/03/18 11:30 Assessment and Plan - Assessment and Plan (Free Text) Assessment: Patient seen and evaluated personally by me. Plan of care d/w the medical biller coder and as documented
[2018-04-03] MEDS: Pantoprazole 40 mg EC Tab PO SCH (09:59)
[2018-04-03] MEDS: Azithromycin 500 MG in Sodium Chloride 0.9% 250 ML IVPB SCH (09:59)
[2018-04-03 11:46] LABS: BASO # 0.1 K/uL (0.0-0.2); BASO % 1.1 % (0.0-2.0); EOS # 0.2 K/uL (0.0-0.7); EOS % 3.9 % (0.0-4.0); HEMOGLOBIN 12.4 g/dL (12.0-18.0); LYMPH # 0.6 K/uL (1.0-4.3); LYMPH % 13.3 % (20.0-40.0); MEAN CELL VOLUME 86.8 fL (80.0-94.0); MEAN CORPUSCULAR HEMOGLOBIN 29.6 pg (27.0-31.0); MEAN CORPUSCULAR HGB CONC 34.1 g/dL (33.0-37.0); MEAN PLATELET VOLUME 8.9 fL (7.2-11.7); MONO # 0.3 K/uL (0.0-0.8); MONO % 7.2 % (0.0-10.0); NEUT # 3.4 K/uL (1.8-7.0); NEUT % 74.5 % (50.0-75.0); NRBC % 0.1 % (0.0-2.0); RBC 4.18 Mil/uL (4.40-5.90); RED CELL DISTRIBUTION WIDTH 13.4 % (11.5-14.5); WHITE BLOOD COUNT 4.5 K/uL (4.8-10.8)
[2018-04-03 11:58] LABS: BLOOD UREA NITROGEN 15 mg/dL (9-20); CALCIUM 8.5 mg/dl (8.6-10.4); GFR NON-AFRICAN AMERICAN > 60
[2018-04-03] MEDS: Vancomycin 1 gm/NS 200 ml 1 GM/200 ML BAG IVPB SCH (14:30)
--- NOTE | 2018-04-03 14:49 | CP.PCM.PN ---
Subjective - Date & Time of Evaluation Date of Evaluation: 04/03/18 Time of Evaluation: 09:20 - Subjective Subjective: Patient was seen and examined at bedside this morning. Patient is resting comfortably and in no acute distress. He is complaining of a productive cough with white sputum that is getting better. Patient slept well overnight. Denies fevers, chills, chest pain, n/v or shortness of breath. no other complaints noted today. Exam: General: no acute distress, AAOx3, elderly, thin appearing Cardio: RRR, no murmurs, rubs or gallops Lungs: decreased breathing, rales and rhonchi present A&P: 1. Pneumonia clinically much improved - CXR 03/31: increased right basilar infiltrate with persistent/unchanged right upper lobe and left - Continue IV ABX, duonebs and guafenesin - Culutres negative x 4 days, mycoplasma titer negative, Legionnaires titers negative - O2 sat 99% on nasal cannula. afebrile at 98.4 F - Continue Monitoring Vital Objective - Vital Signs/Intake and Output Vital Signs (last 24 hours): Temp Pulse Resp BP Pulse Ox 98.4 F 70 20 122/72 99 04/03/18 08:00 04/03/18 08:00 04/03/18 08:00 04/03/18 08:00 04/03/18 08:00 Intake and Output: 04/03/18 04/03/18 06:59 18:59 Intake Total 350 Balance 350 - Medications Medications: Current Medications Acetaminophen (Tylenol 325mg Tab) 650 mg PO Q6 PRN PRN Reason: Pain, moderate (4-7) Last Admin: 03/26/18 21:21 Dose: 650 mg Albuterol/Ipratropium (Duoneb 3 Mg/0.5 Mg (3 Ml) Ud) 3 ml INH RQ6 ANNELIESE Last Admin: 04/03/18 07:50 Dose: 3 ml Benzocaine/Menthol (Cepacol Sore Throat) 1 ishmael MT Q2H PRN PRN Reason: Sore Throat Last Admin: 04/02/18 17:25 Dose: 1 ishmael Gabapentin (Neurontin) 300 mg PO HS ANNELIESE Last Admin: 04/02/18 21:18 Dose: 300 mg Cefepime HCl (Maxipime Iv 1 Gm Premix) 1 gm in 50 mls @ 100 mls/hr IVPB Q12H ANNELIESE; Protocol Last Admin: 04/03/18 05:00 Dose: 100 mls/hr Vancomycin/Sodium Chloride (Vancomycin 1 Gm/Ns 200 Ml) 1 gm in 200 mls @ 133.333 mls/hr IVPB Q24H ANNELIESE; Protocol Stop: 04/05/18 15:31 Last Admin: 04/03/18 14:30 Dose: 133.333 mls/hr Azithromycin 500 mg/ Sodium (Chloride) 250 mls @ 250 mls/hr IVPB DAILY ANNELIESE; Protocol Last Admin: 04/03/18 09:59 Dose: 250 mls/hr Pantoprazole Sodium (Protonix Ec Tab) 40 mg PO DAILY ANNELIESE Last Admin: 04/03/18 09:59 Dose: 40 mg Pramipexole Dihydrochloride (Mirapex) 1 mg PO HS ANNELIESE Last Admin: 04/02/18 21:18 Dose: 1 mg Promethazine HCl/Codeine (Phenergan/Codeine Oral Syrup) 5 ml PO Q6 PRN PRN Reason: Cough Last Admin: 04/02/18 21:18 Dose: 5 ml - Labs Labs: 04/03/18 11:30 04/03/18 11:30 Assessment and Plan (1) Pneumonia Status: Acute
--- NOTE | 2018-04-03 19:50 | CP.PCM.PN ---
Subjective - Date & Time of Evaluation Date of Evaluation: 04/03/18 Time of Evaluation: 19:49 - Subjective Subjective: CHIEF COMPLAINTS TODAY : AFEBRILE, LESS+VE COUGH WITH WHITISH SPUTUM ROS. HEENT : N. Resp : +VE COUGH, NO wheezing ,pleuritic CP ,or hemoptysis Cardio : No anginal CP, PND, orthopnea, palpitation GI : No abd.pain, n/v ,diarrhea or GI bleeding . 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 Musculoskel : No joint swelling , Derm : No rash Psych : Normal affect. Ext : No swelling ,calf pain PE. Pt. is alert awake in no distress. V.S As noted in the chart Head ,ear nose,throat and eyes : Normal. Neck : Supple with normal carotids. Lungs: SCATTERRED B/L RHONCHI Heart : S1 & S2 normal with S4. No murmur. Abd : Soft non tender with normal bowel sounds. Neuro : Moves all ext. with no localized deficit. Ext : No edema with intact pulses.Non tender calves Derm : No rashes or decubitus ulcer. LABS/RADIOLOGY: SPUTUM POSITIVE FOR YEAST? COLONIZATION. ESR 120 QUANTIFERON GOLD TB TEST -VE -VE MRSA SCREEN - HIV 1/2 AB -VE -VE INFLU A/B AG -VE UR.AG . LEGIONELLA -VE MYCOPLASMA IGM : IMPRESSION; -MULTI LOBAR PNEUMONIA R/O ATYPICAL PNEUMONIA R/O CHRONIC ASPIRATION. 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 -EXACERBATION OF COPD. -LEUKOPENIA CONTINUE PULM TOILET -ARTHRITIS ( B/L KNEES ) -HYPERTENSION. PLAN; NYSTATIN 5 Ml SWISH AND SWALLOW 4 TIMES A DAY X 7 DAYS. CONTINUE iv CEFEPIME 1 G EVERY 12 HOURLY 03/31/18. CONTINUEIV VANCOMYCIN 1 G EVERY 24 HOURLY. 03/31/18. ON IV ZITHROMAX 500MG IV DAILY 04/02/18 fOLLOW-UP VANCO TROUGH PRIOR TO THE FOURTH DOSE AND KEEP BETWEEN 10 AND 20 MG/l. fOLLOW-UP RENAL FUNCTIONS CLOSELY PERTUSSIS/PARA PERTUSSIS DNA/ AND SEROLOGY-P CONTINUE PULMONARY TOILET. F/U CXR IN AM Objective - Vital Signs/Intake and Output Vital Signs (last 24 hours): Temp Pulse Resp BP Pulse Ox 97.7 F 83 20 105/55 L 96 04/03/18 16:03 04/03/18 16:03 04/03/18 16:03 04/03/18 16:03 04/03/18 16:03 - Medications Medications: Current Medications Acetaminophen (Tylenol 325mg Tab) 650 mg PO Q6 PRN PRN Reason: Pain, moderate (4-7) Last Admin: 03/26/18 21:21 Dose: 650 mg Albuterol/Ipratropium (Duoneb 3 Mg/0.5 Mg (3 Ml) Ud) 3 ml INH RQ6 ANNELIESE Last Admin: 04/03/18 13:50 Dose: 3 ml Benzocaine/Menthol (Cepacol Sore Throat) 1 ishmael MT Q2H PRN PRN Reason: Sore Throat Last Admin: 04/02/18 17:25 Dose: 1 ishmael Gabapentin (Neurontin) 300 mg PO HS ANNELIESE Last Admin: 04/02/18 21:18 Dose: 300 mg Cefepime HCl (Maxipime Iv 1 Gm Premix) 1 gm in 50 mls @ 100 mls/hr IVPB Q12H ANNELIESE; Protocol Last Admin: 04/03/18 17:21 Dose: 100 mls/hr Vancomycin/Sodium Chloride (Vancomycin 1 Gm/Ns 200 Ml) 1 gm in 200 mls @ 133.333 mls/hr IVPB Q24H ANNELIESE; Protocol Stop: 04/05/18 15:31 Last Admin: 04/03/18 14:30 Dose: 133.333 mls/hr Azithromycin 500 mg/ Sodium (Chloride) 250 mls @ 250 mls/hr IVPB DAILY ANNELIESE; Protocol Last Admin: 04/03/18 09:59 Dose: 250 mls/hr Nystatin (Nystatin Oral Susp) 5 ml PO QID ANNELIESE Pantoprazole Sodium (Protonix Ec Tab) 40 mg PO DAILY ANNELIESE Last Admin: 04/03/18 09:59 Dose: 40 mg Pramipexole Dihydrochloride (Mirapex) 1 mg PO HS ANNELIESE Last Admin: 04/02/18 21:18 Dose: 1 mg Promethazine HCl/Codeine (Phenergan/Codeine Oral Syrup) 5 ml PO Q6 PRN PRN Reason: Cough Last Admin: 04/02/18 21:18 Dose: 5 ml - Labs Labs: 04/03/18 11:30 04/03/18 11:30 Assessment and Plan (1) Dyspnea Status: Acute (2) Pneumonia Status: Acute
[2018-04-03] MEDS: Promethazine/Cod 6.25mg-10mg/5ml Syr UD PO PRN (21:15)
[2018-04-03] MEDS: Nystatin 100,000 Units/ml Oral Susp 5 ml UD PO SCH (21:23)
--- NOTE | 2018-04-03 21:23 | CP.PCM.PN ---
Subjective - Date & Time of Evaluation Date of Evaluation: 04/03/18 Time of Evaluation: 09:02 - Subjective Subjective: dictated Objective - Vital Signs/Intake and Output Vital Signs (last 24 hours): Temp Pulse Resp BP Pulse Ox 97.7 F 83 20 105/55 L 96 04/03/18 16:03 04/03/18 16:03 04/03/18 16:03 04/03/18 16:03 04/03/18 16:03 - Medications Medications: Current Medications Acetaminophen (Tylenol 325mg Tab) 650 mg PO Q6 PRN PRN Reason: Pain, moderate (4-7) Last Admin: 03/26/18 21:21 Dose: 650 mg Albuterol/Ipratropium (Duoneb 3 Mg/0.5 Mg (3 Ml) Ud) 3 ml INH RQ6 ANNELIESE Last Admin: 04/03/18 13:50 Dose: 3 ml Benzocaine/Menthol (Cepacol Sore Throat) 1 ishmael MT Q2H PRN PRN Reason: Sore Throat Last Admin: 04/02/18 17:25 Dose: 1 ishmael Gabapentin (Neurontin) 300 mg PO HS ANNELIESE Last Admin: 04/03/18 21:15 Dose: 300 mg Cefepime HCl (Maxipime Iv 1 Gm Premix) 1 gm in 50 mls @ 100 mls/hr IVPB Q12H ANNELIESE; Protocol Last Admin: 04/03/18 17:21 Dose: 100 mls/hr Vancomycin/Sodium Chloride (Vancomycin 1 Gm/Ns 200 Ml) 1 gm in 200 mls @ 133.333 mls/hr IVPB Q24H ANNELIESE; Protocol Stop: 04/05/18 15:31 Last Admin: 04/03/18 14:30 Dose: 133.333 mls/hr Azithromycin 500 mg/ Sodium (Chloride) 250 mls @ 250 mls/hr IVPB DAILY ANNELIESE; Protocol Last Admin: 04/03/18 09:59 Dose: 250 mls/hr Nystatin (Nystatin Oral Susp) 5 ml PO QID ANNELIESE Pantoprazole Sodium (Protonix Ec Tab) 40 mg PO DAILY ANNELIESE Last Admin: 04/03/18 09:59 Dose: 40 mg Pramipexole Dihydrochloride (Mirapex) 1 mg PO HS ANNELIESE Last Admin: 04/03/18 21:15 Dose: 1 mg Promethazine HCl/Codeine (Phenergan/Codeine Oral Syrup) 5 ml PO Q6 PRN PRN Reason: Cough Last Admin: 04/03/18 21:15 Dose: 5 ml - Labs Labs: 04/03/18 11:30 04/03/18 11:30
--- NOTE | 2018-04-04 00:44 | PN ---
DATE: 04/03/2018 SUBJECTIVE: The patient is still coughing, wheezing, and he is short of breath. He is hypoxic. He is on vancomycin. No nausea or vomiting. PHYSICAL EXAMINATION: VITAL SIGNS: Blood pressure 105/55, pulse 83, respiratory rate 20, and temperature 97.7. LUNGS: Bilateral crackles. Decreased air entry. CARDIOVASCULAR SYSTEM: S1, S2 regular. ABDOMEN: Soft. ASSESSMENT: 1. Pneumonia. 2. Restless leg syndrome. PLAN: Continue antibiotics as ordered. Monitor the patient. James Houston MD
[2018-04-04] MEDS: Albuterol-Ipratrop 3 mg / 0.5 (3 ml) UD INH SCH ×4 (02:36→20:23)
[2018-04-04] MEDS: Cefepime IV 1 gm in Dextrose 1 GM/50 ML BAG IVPB SCH ×2 (05:06→17:00)
[2018-04-04] MEDS: Nystatin 100,000 Units/ml Oral Susp 5 ml UD PO SCH ×5 (10:27→21:18)
[2018-04-04] MEDS: Azithromycin 500 MG in Sodium Chloride 0.9% 250 ML IVPB SCH (10:27)
[2018-04-04] MEDS: Pantoprazole 40 mg EC Tab PO SCH (10:27)
--- NOTE | 2018-04-04 14:16 | CP.PCM.PN ---
Subjective - Date & Time of Evaluation Date of Evaluation: 04/04/18 Time of Evaluation: 14:16 - Subjective Subjective: CHIEF COMPLAINTS TODAY : AFEBRILE, LESS+VE COUGH WITH WHITISH SPUTUM ROS. HEENT : N. Resp : +VE COUGH, NO wheezing ,pleuritic CP ,or hemoptysis Cardio : No anginal CP, PND, orthopnea, palpitation GI : No abd.pain, n/v ,diarrhea or GI bleeding . 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 Musculoskel : No joint swelling , Derm : No rash Psych : Normal affect. Ext : No swelling ,calf pain PE. Pt. is alert awake in no distress. V.S As noted in the chart Head ,ear nose,throat and eyes : Normal. Neck : Supple with normal carotids. Lungs: SCATTERRED B/L RHONCHI Heart : S1 & S2 normal with S4. No murmur. Abd : Soft non tender with normal bowel sounds. Neuro : Moves all ext. with no localized deficit. Ext : No edema with intact pulses.Non tender calves Derm : No rashes or decubitus ulcer. LABS/RADIOLOGY: REPEAT CXR REVIEWED -- DENSE COSOLIDATION / MASS RUL SPUTUM POSITIVE FOR YEAST? COLONIZATION. ESR 120 QUANTIFERON GOLD TB TEST -VE -VE MRSA SCREEN - HIV 1/2 AB -VE -VE INFLU A/B AG -VE UR.AG . LEGIONELLA -VE MYCOPLASMA IGM : IMPRESSION; -MULTI LOBAR PNEUMONIA /MASS RUL R/O MALIGNANCY -EXACERBATION OF COPD- LEUKOPENIA -ARTHRITIS ( B/L KNEES ) -HYPERTENSION. PLAN; case discussed with pulmonary. DISCUSSED ABOUT? FOB FOR DEFINITIVE DIAGNOSIS.. Continue IV antibiotics for now CT CHEST REPEAT ON tuesday PER PULMONARY. WILL DECIDE FOR FOB AFTER CT CHEST AND REVALUATE. NYSTATIN 5 Ml SWISH AND SWALLOW 4 TIMES A DAY X 7 DAYS. CONTINUE iv CEFEPIME 1 G EVERY 12 HOURLY 03/31/18. CONTINUEIV VANCOMYCIN 1 G EVERY 24 HOURLY. 03/31/18. ON IV ZITHROMAX 500MG IV DAILY 04/02/18 Objective - Vital Signs/Intake and Output Vital Signs (last 24 hours): Temp Pulse Resp BP Pulse Ox 97.4 F L 61 20 128/65 98 04/04/18 07:00 04/04/18 07:00 04/04/18 07:00 04/04/18 07:00 04/04/18 07:00 Intake and Output: 04/04/18 04/04/18 06:59 18:59 Intake Total 230 Output Total 250 Balance -20 - Medications Medications: Current Medications Acetaminophen (Tylenol 325mg Tab) 650 mg PO Q6 PRN PRN Reason: Pain, moderate (4-7) Last Admin: 03/26/18 21:21 Dose: 650 mg Albuterol/Ipratropium (Duoneb 3 Mg/0.5 Mg (3 Ml) Ud) 3 ml INH RQ6 ANNELIESE Last Admin: 04/04/18 07:35 Dose: 3 ml Benzocaine/Menthol (Cepacol Sore Throat) 1 ishmael MT Q2H PRN PRN Reason: Sore Throat Last Admin: 04/02/18 17:25 Dose: 1 ishmael Gabapentin (Neurontin) 300 mg PO HS ANNELIESE Last Admin: 04/03/18 21:15 Dose: 300 mg Cefepime HCl (Maxipime Iv 1 Gm Premix) 1 gm in 50 mls @ 100 mls/hr IVPB Q12H ANNELIESE; Protocol Last Admin: 04/04/18 05:06 Dose: 100 mls/hr Vancomycin/Sodium Chloride (Vancomycin 1 Gm/Ns 200 Ml) 1 gm in 200 mls @ 13 3.333 mls/hr IVPB Q24H ANNELIESE; Protocol Stop: 04/05/18 15:31 Last Admin: 04/03/18 14:30 Dose: 133.333 mls/hr Azithromycin 500 mg/ Sodium (Chloride) 250 mls @ 250 mls/hr IVPB DAILY ANNELIESE; Protocol Last Admin: 04/04/18 10:27 Dose: 250 mls/hr Nystatin (Nystatin Oral Susp) 5 ml PO QID ANNELIESE Last Admin: 04/04/18 13:44 Dose: 5 ml Pantoprazole Sodium (Protonix Ec Tab) 40 mg PO DAILY ANNELIESE Last Admin: 04/04/18 10:27 Dose: 40 mg Pramipexole Dihydrochloride (Mirapex) 1 mg PO HS ANNELIESE Last Admin: 04/03/18 21:15 Dose: 1 mg Promethazine HCl/Codeine (Phenergan/Codeine Oral Syrup) 5 ml PO Q6 PRN PRN Reason: Cough Last Admin: 04/03/18 21:15 Dose: 5 ml - Labs Labs: 04/03/18 11:30 04/03/18 11:30 Assessment and Plan (1) Dyspnea Status: Acute (2) Pneumonia Status: Acute
[2018-04-04] MEDS: Vancomycin 1 gm/NS 200 ml 1 GM/200 ML BAG IVPB SCH (14:30)
--- NOTE | 2018-04-04 15:27 | RAD ---
Date of service: 04/04/2018 HISTORY: TO EVALUATE PNEUMONIA COMPARISON: Chest radiograph dated 03/31/2018. TECHNIQUE: Portable semi-erect AP view FINDINGS: LUNGS: Triangular patchy consolidative change in the right upper lobe. Additional patchy infiltrates in the right mid/lower lung as well as in the left lung base. PLEURA: No significant pleural effusion identified. No pneumothorax apparent. CARDIOVASCULAR: Aortic atherosclerotic calcifications. Cardiomediastinal silhouette stably enlarged. OSSEOUS STRUCTURES: Changed. VISUALIZED UPPER ABDOMEN: Normal. OTHER FINDINGS: None. IMPRESSION: Bilateral patchy infiltrates with more consolidative change in the right upper lobe.
[2018-04-04 15:42] LABS: % CD4 (T HELPER CELL) 36 Percent (30-61); % CD8 (SUPPRESSOR T CELL) 29 Percent (12-42); ABSOLUTE CD4 CELLS 334 Cells/mcL (490-1740); ABSOLUTE CD8 CELLS 264 Cells/mcL (180-1170); ABSOLUTE LYMPHOCYTES 924 Cells/mcL (850-3900); HELPER/SUPPRESSOR RATIO 1.27 Ratio (0.86-5.00)
--- NOTE | 2018-04-04 17:02 | CP.PCM.PN ---
Subjective - Date & Time of Evaluation Date of Evaluation: 04/04/18 Time of Evaluation: 12:30 - Subjective Subjective: Patient was seen and examined at bedside this morning. Patient is resting comfortably and in no acute distress. He is complaining of a productive cough with white sputum that is improving. Patient slept well overnight. Denies fevers, chills, chest pain, n/v or shortness of breath. no other complaints noted today. Exam: General: no acute distress, AAOx3, elderly, thin appearing Cardio: RRR, no murmurs, rubs or gallops Lungs:decreased breathing b/l, rhonchi heard A&P: 1. Pneumonia - CXR done today showed dense consolidation RUL - Continue IV ABX, duonebs and repeat CT chest on Tuesday - Cultures negative x 4 days, mycoplasma titer negative, Legionnaires titers negative - O2 sat 98% on room air. afebrile at 97.4 F - Continue Monitoring Vital Objective - Vital Signs/Intake and Output Vital Signs (last 24 hours): Temp Pulse Resp BP Pulse Ox 97.4 F L 61 20 128/65 98 04/04/18 07:00 04/04/18 07:00 04/04/18 07:00 04/04/18 07:00 04/04/18 07:00 Intake and Output: 04/04/18 04/04/18 06:59 18:59 Intake Total 230 Output Total 250 Balance -20 - Medications Medications: Current Medications Acetaminophen (Tylenol 325mg Tab) 650 mg PO Q6 PRN PRN Reason: Pain, moderate (4-7) Last Admin: 03/26/18 21:21 Dose: 650 mg Albuterol/Ipratropium (Duoneb 3 Mg/0.5 Mg (3 Ml) Ud) 3 ml INH RQ6 ANNELIESE Last Admin: 04/04/18 13:45 Dose: 3 ml Benzocaine/Menthol (Cepacol Sore Throat) 1 ishmael MT Q2H PRN PRN Reason: Sore Throat Last Admin: 04/02/18 17:25 Dose: 1 ishmael Gabapentin (Neurontin) 300 mg PO HS ANNELIESE Last Admin: 04/03/18 21:15 Dose: 300 mg Cefepime HCl (Maxipime Iv 1 Gm Premix) 1 gm in 50 mls @ 100 mls/hr IVPB Q12H ANNELIESE; Protocol Last Admin: 04/04/18 05:06 Dose: 100 mls/hr Vancomycin/Sodium Chloride (Vancomycin 1 Gm/Ns 200 Ml) 1 gm in 200 mls @ 133. 333 mls/hr IVPB Q24H ANNELIESE; Protocol Stop: 04/05/18 15:31 Last Admin: 04/04/18 14:30 Dose: 133.333 mls/hr Azithromycin 500 mg/ Sodium (Chloride) 250 mls @ 250 mls/hr IVPB DAILY ANNELIESE; Protocol Last Admin: 04/04/18 10:27 Dose: 250 mls/hr Nystatin (Nystatin Oral Susp) 5 ml PO QID ANNELIESE Last Admin: 04/04/18 13:44 Dose: 5 ml Pantoprazole Sodium (Protonix Ec Tab) 40 mg PO DAILY ANNELIESE Last Admin: 04/04/18 10:27 Dose: 40 mg Pramipexole Dihydrochloride (Mirapex) 1 mg PO HS ANNELIESE Last Admin: 04/03/18 21:15 Dose: 1 mg Promethazine HCl/Codeine (Phenergan/Codeine Oral Syrup) 5 ml PO Q6 PRN PRN Reason: Cough Last Admin: 04/03/18 21:15 Dose: 5 ml - Labs Labs: 04/03/18 11:30 04/03/18 11:30 Assessment and Plan (1) Pneumonia Status: Acute
[2018-04-04] MEDS: Promethazine/Cod 6.25mg-10mg/5ml Syr UD PO PRN (21:20)
--- NOTE | 2018-04-04 21:41 | CP.PCM.PN ---
Subjective - Date & Time of Evaluation Date of Evaluation: 04/04/18 Time of Evaluation: 14:00 - Subjective Subjective: dictated Objective - Vital Signs/Intake and Output Vital Signs (last 24 hours): Temp Pulse Resp BP Pulse Ox 98 F 80 20 116/62 98 04/04/18 17:02 04/04/18 17:02 04/04/18 17:02 04/04/18 17:02 04/04/18 17:02 - Medications Medications: Current Medications Acetaminophen (Tylenol 325mg Tab) 650 mg PO Q6 PRN PRN Reason: Pain, moderate (4-7) Last Admin: 03/26/18 21:21 Dose: 650 mg Albuterol/Ipratropium (Duoneb 3 Mg/0.5 Mg (3 Ml) Ud) 3 ml INH RQ6 ANNELIESE Last Admin: 04/04/18 20:23 Dose: 3 ml Benzocaine/Menthol (Cepacol Sore Throat) 1 ishmael MT Q2H PRN PRN Reason: Sore Throat Last Admin: 04/02/18 17:25 Dose: 1 ishmael Gabapentin (Neurontin) 300 mg PO HS ANNELIESE Last Admin: 04/04/18 21:19 Dose: 300 mg Cefepime HCl (Maxipime Iv 1 Gm Premix) 1 gm in 50 mls @ 100 mls/hr IVPB Q12H ANNELIESE; Protocol Last Admin: 04/04/18 17:00 Dose: 100 mls/hr Vancomycin/Sodium Chloride (Vancomycin 1 Gm/Ns 200 Ml) 1 gm in 200 mls @ 133.333 mls/hr IVPB Q24H ANNELIESE; Protocol Stop: 04/05/18 15:31 Last Admin: 04/04/18 14:30 Dose: 133.333 mls/hr Azithromycin 500 mg/ Sodium (Chloride) 250 mls @ 250 mls/hr IVPB DAILY ANNELIESE; Pro tocol Last Admin: 04/04/18 10:27 Dose: 250 mls/hr Nystatin (Nystatin Oral Susp) 5 ml PO QID ANNELIESE Last Admin: 04/04/18 21:18 Dose: 5 ml Pantoprazole Sodium (Protonix Ec Tab) 40 mg PO DAILY ANNELIESE Last Admin: 04/04/18 10:27 Dose: 40 mg Pramipexole Dihydrochloride (Mirapex) 1 mg PO HS ANNELIESE Last Admin: 04/04/18 21:19 Dose: 1 mg Promethazine HCl/Codeine (Phenergan/Codeine Oral Syrup) 5 ml PO Q6 PRN PRN Reason: Cough Last Admin: 04/04/18 21:20 Dose: 5 ml - Labs Labs: 04/03/18 11:30 04/03/18 11:30
[2018-04-05] MEDS: Albuterol-Ipratrop 3 mg / 0.5 (3 ml) UD INH SCH ×4 (02:16→20:51)
--- NOTE | 2018-04-05 04:41 | PN ---
DATE: 04/04/2018 SUBJECTIVE: The patient is afebrile. He is less short of breath, less cough, less wheezing. PHYSICAL EXAMINATION VITAL SIGNS: Blood pressure 116/62, pulse 80, respiratory rate 20, temperature 98. LUNGS: Bilateral crackles. CARDIOVASCULAR SYSTEM: S1 and S2 regular. ABDOMEN: Soft. ASSESSMENT: Pneumonia. PLAN: Continue antibiotics. HIV negative. Absolute CD4 is 334. The patient is stable. Monitor the patient. James Houston MD
[2018-04-05] MEDS: Cefepime IV 1 gm in Dextrose 1 GM/50 ML BAG IVPB SCH ×2 (05:00→17:30)
[2018-04-05] MEDS: Azithromycin 500 MG in Sodium Chloride 0.9% 250 ML IVPB SCH (09:51)
[2018-04-05] MEDS: Pantoprazole 40 mg EC Tab PO SCH (09:52)
[2018-04-05] MEDS: Nystatin 100,000 Units/ml Oral Susp 5 ml UD PO SCH ×4 (09:52→21:47)
[2018-04-05] MEDS: Vancomycin 1 gm/NS 200 ml 1 GM/200 ML BAG IVPB SCH (15:10)
--- NOTE | 2018-04-05 15:43 | CP.PCM.PN ---
Subjective - Date & Time of Evaluation Date of Evaluation: 04/05/18 Time of Evaluation: 13:00 - Subjective Subjective: Patient was seen and examined at bedside this morning. Patient is resting comfortably and in no acute distress. He is complaining of decreased appetite. Patient slept well overnight. Denies fevers, chills, chest pain, n/v or shortness of breath. no other complaints noted today. Exam: General: no acute distress, AAOx3, elderly, thin appearing Cardio: RRR, no murmurs, rubs or gallops Lungs: decreased breathing b/l, CTA b/L A&P: 1. Pneumonia clinically much improved - Recommend repeat chest CT - CXR 04/03: Bilateral patchy infiltrates with more consolidative change in right upper lobe - Continue IV ABX, duonebs - Cultures negative x 4 days, mycoplasma titer negative, Legionnaires titers negative - O2 sat 95% on room air. afebrile at 98.2 F with WBC of 4.5 - Continue Monitoring Vital Objective - Vital Signs/Intake and Output Vital Signs (last 24 hours): Temp Pulse Resp BP Pulse Ox 98.2 F 68 20 95/49 L 95 04/05/18 07:31 04/05/18 07:31 04/05/18 07:31 04/05/18 07:31 04/05/18 07:31 Intake and Output: 04/05/18 04/05/18 06:59 18:59 Intake Total 230 Balance 230 - Medications Medications: Current Medications Acetaminophen (Tylenol 325mg Tab) 650 mg PO Q6 PRN PRN Reason: Pain, moderate (4-7) Last Admin: 03/26/18 21:21 Dose: 650 mg Albuterol/Ipratropium (Duoneb 3 Mg/0.5 Mg (3 Ml) Ud) 3 ml INH RQ6 ANNELIESE Last Admin: 04/05/18 07:55 Dose: Not Given Benzocaine/Menthol (Cepacol Sore Throat) 1 ishmael MT Q2H PRN PRN Reason: Sore Throat Last Admin: 04/02/18 17:25 Dose: 1 ishmael Gabapentin (Neurontin) 300 mg PO HS ANNELIESE Last Admin: 04/04/18 21:19 Dose: 300 mg Cefepime HCl (Maxipime Iv 1 Gm Premix) 1 gm in 50 mls @ 100 mls/hr IVPB Q12H ANNELIESE; Protocol Last Admin: 04/05/18 05:00 Dose: 100 mls/hr Azithromycin 500 mg/ Sodium (Chloride) 250 mls @ 250 mls/hr IVPB DAILY ANNELIESE; Protocol Last Admin: 04/05/18 09:51 Dose: 250 mls/hr Nystatin (Nystatin Oral Susp) 5 ml PO QID ANNELIESE Last Admin: 04/05/18 13:28 Dose: 5 ml Pantoprazole Sodium (Protonix Ec Tab) 40 mg PO DAILY ANNELIESE Last Admin: 04/05/18 09:52 Dose: 40 mg Pramipexole Dihydrochloride (Mirapex) 1 mg PO HS ANNELIESE Last Admin: 04/04/18 21:19 Dose: 1 mg Promethazine HCl/Codeine (Phenergan/Codeine Oral Syrup) 5 ml PO Q6 PRN PRN Reason: Cough Last Admin: 04/04/18 21:20 Dose: 5 ml - Labs Labs: 04/03/18 11:30 04/03/18 11:30 Assessment and Plan (1) Pneumonia Status: Acute
[2018-04-05] MEDS: Promethazine/Cod 6.25mg-10mg/5ml Syr UD PO PRN (21:47)
--- NOTE | 2018-04-05 22:36 | CP.PCM.PN ---
Subjective - Date & Time of Evaluation Date of Evaluation: 04/05/18 Time of Evaluation: 22:35 - Subjective Subjective: CHIEF COMPLAINTS TODAY : AFEBRILE, LESS+VE COUGH. comfortable ROS. HEENT : N. Resp : +VE COUGH, NO wheezing ,pleuritic CP ,or hemoptysis Cardio : No anginal CP, PND, orthopnea, palpitation GI : No abd.pain, n/v ,diarrhea or GI bleeding . 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 Musculoskel : No joint swelling , Derm : No rash Psych : Normal affect. Ext : No swelling ,calf pain PE. Pt. is alert awake in no distress. V.S As noted in the chart Head ,ear nose,throat and eyes : Normal. Neck : Supple with normal carotids. Lungs: SCATTERRED B/L RHONCHI Heart : S1 & S2 normal with S4. No murmur. Abd : Soft non tender with normal bowel sounds. Neuro : Moves all ext. with no localized deficit. Ext : No edema with intact pulses.Non tender calves Derm : No rashes or decubitus ulcer. LABS/RADIOLOGY: REPEAT CXR REVIEWED -- DENSE COSOLIDATION / MASS RUL SPUTUM POSITIVE FOR YEAST? COLONIZATION. ESR 120 QUANTIFERON GOLD TB TEST -VE -VE MRSA SCREEN - HIV 1/2 AB -VE -VE INFLU A/B AG -VE UR.AG . LEGIONELLA -VE MYCOPLASMA IGM : IMPRESSION; -MULTI LOBAR PNEUMONIA /MASS RUL R/O MALIGNANCY -EXACERBATION OF COPD- LEUKOPENIA -ARTHRITIS ( B/L KNEES ) -HYPERTENSION. PLAN; PT. FOR CT CHEST REPEAT ON tuesday PER PULMONARY. WILL DECIDE FOR FOB AFTER CT CHEST AND REVALUATE. CONTINUE iv CEFEPIME 1 G EVERY 12 HOURLY 03/31/18. CONTINUEIV VANCOMYCIN 1 G EVERY 24 HOURLY. 03/31/18. ON IV ZITHROMAX 500MG IV DAILY 04/02/18 NYSTATIN 5 Ml SWISH AND SWALLOW 4 TIMES A DAY X 7 DAYS. 04/04/18 Objective - Vital Signs/Intake and Output Vital Signs (last 24 hours): Temp Pulse Resp BP Pulse Ox 97.8 F 86 20 114/55 L 95 04/05/18 15:00 04/05/18 15:00 04/05/18 15:00 04/05/18 15:00 04/05/18 15:00 - Medications Medications: Current Medications Acetaminophen (Tylenol 325mg Tab) 650 mg PO Q6 PRN PRN Reason: Pain, moderate (4-7) Last Admin: 03/26/18 21:21 Dose: 650 mg Albuterol/Ipratropium (Duoneb 3 Mg/0.5 Mg (3 Ml) Ud) 3 ml INH RQ6 ANNELIESE Last Admin: 04/05/18 20:51 Dose: 3 ml Benzocaine/Menthol (Cepacol Sore Throat) 1 ishmael MT Q2H PRN PRN Reason: Sore Throat Last Admin: 04/02/18 17:25 Dose: 1 ishmael Gabapentin (Neurontin) 300 mg PO HS ANNELIESE Last Admin: 04/05/18 21:47 Dose: 300 mg Cefepime HCl (Maxipime Iv 1 Gm Premix) 1 gm in 50 mls @ 100 mls/hr IVPB Q12H ANNELIESE; Protocol Last Admin: 04/05/18 17:30 Dose: 100 mls/hr Azithromycin 500 mg/ Sodium (Chloride) 250 mls @ 250 mls/hr IVPB DAILY ANNELIESE; Protocol Last Admin: 04/05/18 09:51 Dose: 250 mls/hr Nystatin (Nystatin Oral Susp) 5 ml PO QID ANNELIESE Last Admin: 04/05/18 21:47 Dose: 5 ml Pantoprazole Sodium (Protonix Ec Tab) 40 mg PO DAILY ANNELIESE Last Admin: 04/05/18 09:52 Dose: 40 mg Pramipexole Dihydrochloride (Mirapex) 1 mg PO HS ANNELISEE Last Admin: 04/05/18 21:47 Dose: 1 mg Promethazine HCl/Codeine (Phenergan/Codeine Oral Syrup) 5 ml PO Q6 PRN PRN Reason: Cough Last Admin: 04/05/18 21:47 Dose: 5 ml - Labs Labs: 04/03/18 11:30 04/03/18 11:30 Assessment and Plan (1) Dyspnea Status: Acute (2) Pneumonia Status: Acute
--- NOTE | 2018-04-05 22:46 | CP.PCM.PN ---
Subjective - Date & Time of Evaluation Date of Evaluation: 04/05/18 Time of Evaluation: 19:00 - Subjective Subjective: dictated Objective - Vital Signs/Intake and Output Vital Signs (last 24 hours): Temp Pulse Resp BP Pulse Ox 97.8 F 86 20 114/55 L 95 04/05/18 15:00 04/05/18 15:00 04/05/18 15:00 04/05/18 15:00 04/05/18 15:00 - Medications Medications: Current Medications Acetaminophen (Tylenol 325mg Tab) 650 mg PO Q6 PRN PRN Reason: Pain, moderate (4-7) Last Admin: 03/26/18 21:21 Dose: 650 mg Albuterol/Ipratropium (Duoneb 3 Mg/0.5 Mg (3 Ml) Ud) 3 ml INH RQ6 ANNELIESE Last Admin: 04/05/18 20:51 Dose: 3 ml Benzocaine/Menthol (Cepacol Sore Throat) 1 ishmael MT Q2H PRN PRN Reason: Sore Throat Last Admin: 04/02/18 17:25 Dose: 1 ishmael Gabapentin (Neurontin) 300 mg PO HS ANNELIESE Last Admin: 04/05/18 21:47 Dose: 300 mg Cefepime HCl (Maxipime Iv 1 Gm Premix) 1 gm in 50 mls @ 100 mls/hr IVPB Q12H ANNELIESE; Protocol Last Admin: 04/05/18 17:30 Dose: 100 mls/hr Azithromycin 500 mg/ Sodium (Chloride) 250 mls @ 250 mls/hr IVPB DAILY ANNELIESE; Protocol Last Admin: 04/05/18 09:51 Dose: 250 mls/hr Nystatin (Nystatin Oral Susp) 5 ml PO QID ANNELIESE Last Admin: 04/05/18 21:47 Dose: 5 ml Pantoprazole Sodium (Protonix Ec Tab) 40 mg PO DAILY ANNELIESE Last Admin: 04/05/18 09:52 Dose: 40 mg Pramipexole Dihydrochloride (Mirapex) 1 mg PO HS ANNELIESE Last Admin: 04/05/18 21:47 Dose: 1 mg Promethazine HCl/Codeine (Phenergan/Codeine Oral Syrup) 5 ml PO Q6 PRN PRN Reason: Cough Last Admin: 04/05/18 21:47 Dose: 5 ml - Labs Labs: 04/03/18 11:30 04/03/18 11:30
--- NOTE | 2018-04-06 01:31 | PN ---
DATE: 04/05/2018 SUBJECTIVE: The patient is afebrile. Seen by Infectious Disease. He remains on vancomycin and he is afebrile. PHYSICAL EXAMINATION: VITAL SIGNS: Blood pressure 114/55, pulse 86, respiratory rate 20, temperature 97.8. LUNGS: Bilateral crackles. Decreased air entry. CARDIOVASCULAR SYSTEM: S1, S2. Regular. ABDOMEN: Soft. ASSESSMENT: 1. Pneumonia. 2. Restless legs syndrome. PLAN: Continue antibiotics. Monitor patient. James Houston MD
[2018-04-06] MEDS: Albuterol-Ipratrop 3 mg / 0.5 (3 ml) UD INH SCH ×4 (02:20→19:20)
[2018-04-06] MEDS: Cefepime IV 1 gm in Dextrose 1 GM/50 ML BAG IVPB SCH ×2 (05:00→16:09)
[2018-04-06] MEDS: Azithromycin 500 MG in Sodium Chloride 0.9% 250 ML IVPB SCH (10:09)
[2018-04-06] MEDS: Nystatin 100,000 Units/ml Oral Susp 5 ml UD PO SCH ×4 (10:10→21:22)
[2018-04-06] MEDS: Pantoprazole 40 mg EC Tab PO SCH (10:10)
--- NOTE | 2018-04-06 13:15 | CT ---
Date of service: 04/06/2018 PROCEDURE: CT Chest without contrast HISTORY: Follow-up pneumonia. COMPARISON: 03/29/2018 CT thorax. TECHNIQUE: Contiguous axial images were obtained through the chest without intravenous contrast enhancement. Sagittal and coronal reconstructions were performed. Radiation dose: Total exam DLP = 423.23 mGy-cm. This CT exam was performed using one or more of the following dose reduction techniques: Automated exposure control, adjustment of the mA and/or kV according to patient size, and/or use of iterative reconstruction technique. FINDINGS: LUNGS: Persistent multifocal infiltrates bilaterally right greater than left. Greater degree of collapse of the right upper lobe and attendant consolidative process. Interval improvement right lower lobe infiltrate. No visible endobronchial lesions noted. Underlying hyperinflation. MEDIASTINUM: Unremarkable thoracic aorta. No aneurysm. Normal sized heart. Main pulmonary artery unremarkable. No vascular congestion. No lymphadenopathy. No aortic atherosclerotic calcification. PLEURA: No pleural fluid. No pneumothorax. BONES: No fracture. No destructive lesion. UPPER ABDOMEN: No significant interval change compared to the prior examination(s). OTHER FINDINGS: None. IMPRESSION: Greater degree of confluence of infiltrates in particular right upper lobe and right lower lobe. Similar less pronounced findings noted in the left lower lobe.
--- NOTE | 2018-04-06 16:06 | CP.PCM.PN ---
Subjective - Date & Time of Evaluation Date of Evaluation: 04/06/18 Time of Evaluation: 11:55 - Subjective Subjective: Patient was seen and examined at bedside this morning. Patient is resting comfortably and in no acute distress. He is complaining of decreased appetite. Patient slept well overnight. Denies fevers, chills, chest pain, n/v or shortness of breath. no other complaints noted today. Exam: General: no acute distress, AAOx3, elderly, thin appearing Cardio: RRR, no murmurs, rubs or gallops Lungs: decreased breathing b/l, CTA b/L A&P: 1. Pneumonia - Recommend repeat chest CT and bronchoscopy depending on CAT scan report - CXR 04/03: Bilateral patchy infiltrates with more consolidative change in right upper lobe - Continue IV ABX, duonebs and guafenesin - Cultures negative x 4 days, mycoplasma titer negative, Legionnaires titers negative - O2 sat 95% on room air. afebrile at 98.3 F with WBC of 4.5 - Continue Monitoring Vital Objective - Vital Signs/Intake and Output Vital Signs (last 24 hours): Temp Pulse Resp BP Pulse Ox 98.3 F 74 20 117/57 L 95 04/06/18 08:00 04/06/18 08:00 04/06/18 08:00 04/06/18 08:00 04/06/18 08:00 Intake and Output: 04/06/18 04/06/18 06:59 18:59 Intake Total 350 550 Output Total 600 Balance -250 550 - Medications Medications: Current Medications Acetaminophen (Tylenol 325mg Tab) 650 mg PO Q6 PRN PRN Reason: Pain, moderate (4-7) Last Admin: 03/26/18 21:21 Dose: 650 mg Albuterol/Ipratropium (Duoneb 3 Mg/0.5 Mg (3 Ml) Ud) 3 ml INH RQ6 ANNELIESE Last Admin: 04/06/18 13:50 Dose: 3 ml Benzocaine/Menthol (Cepacol Sore Throat) 1 ishmael MT Q2H PRN PRN Reason: Sore Throat Last Admin: 04/02/18 17:25 Dose: 1 ishmael Gabapentin (Neurontin) 300 mg PO HS ANNELIESE Last Admin: 04/05/18 21:47 Dose: 300 mg Cefepime HCl (Maxipime Iv 1 Gm Premix) 1 gm in 50 mls @ 100 mls/hr IVPB Q12H ANNELIESE; Protocol Last Admin: 04/06/18 05:00 Dose: 100 mls/hr Azithromycin 500 mg/ Sodium (Chloride) 250 mls @ 250 mls/hr IVPB DAILY ANNELIESE; Protocol Last Admin: 04/06/18 10:09 Dose: 250 mls/hr Nystatin (Nystatin Oral Susp) 5 ml PO QID ANNELIESE Last Admin: 04/06/18 13:51 Dose: 5 ml Pantoprazole Sodium (Protonix Ec Tab) 40 mg PO DAILY ANNELIESE Last Admin: 04/06/18 10:10 Dose: 40 mg Pramipexole Dihydrochloride (Mirapex) 1 mg PO HS [facility] Last Admin: 04/05/18 21:47 Dose: 1 mg Promethazine HCl/Codeine (Phenergan/Codeine Oral Syrup) 5 ml PO Q6 PRN PRN Reason: Cough Last Admin: 04/05/18 21:47 Dose: 5 ml - Labs Labs: 04/03/18 11:30 04/03/18 11:30 Assessment and Plan (1) Pneumonia Status: Acute
--- NOTE | 2018-04-06 20:42 | CP.PCM.PN ---
Subjective - Date & Time of Evaluation Date of Evaluation: 04/06/18 Time of Evaluation: 20:42 - Subjective Subjective: CHIEF COMPLAINTS TODAY : AFEBRILE, LESS+VE COUGH. less congested comfortable PT REPORTS WENT FOR CT CHEST- P ROS. HEENT : N. Resp : +VE COUGH, NO wheezing ,pleuritic CP ,or hemoptysis Cardio : No anginal CP, PND, orthopnea, palpitation GI : No abd.pain, n/v ,diarrhea or GI bleeding . 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 Musculoskel : No joint swelling , Derm : No rash Psych : Normal affect. Ext : No swelling ,calf pain PE. Pt. is alert awake in no distress. V.S As noted in the chart Head ,ear nose,throat and eyes : Normal. Neck : Supple with normal carotids. Lungs: RHONCHI B/L RT >LT Heart : S1 & S2 normal with S4. No murmur. Abd : Soft non tender with normal bowel sounds. Neuro : Moves all ext. with no localized deficit. Ext : No edema with intact pulses.Non tender calves Derm : No rashes or decubitus ulcer. LABS/RADIOLOGY: REPEAT CXR REVIEWED -- DENSE COSOLIDATION / ? MASS RUL SPUTUM POSITIVE FOR YEAST? COLONIZATION. ESR 120 QUANTIFERON GOLD TB TEST -VE -VE MRSA SCREEN - HIV 1/2 AB -VE -VE INFLU A/B AG -VE UR.AG . LEGIONELLA -VE MYCOPLASMA IGM : IMPRESSION; -MULTI LOBAR PNEUMONIA R/O ATYPICAL PNEUMONIA VS MALIGNANCY -EXACERBATION OF COPD- LEUKOPENIA -ARTHRITIS ( B/L KNEES ) -HYPERTENSION. PLAN; F/U CT CHEST 04/06/18 PULMONARY TO DECIDE FOR FOB AFTER CT CHEST AND REVALUATE. CONTINUE iv CEFEPIME 1 G EVERY 12 HOURLY 03/31/18.-DAY7 CONTINUE IV VANCOMYCIN 1 G EVERY 24 HOURLY. 03/31/18. ON IV ZITHROMAX 500MG IV DAILY 04/02/18- DAY 5 NYSTATIN 5 Ml SWISH AND SWALLOW 4 TIMES A DAY X 7 DAYS. 04/04/18 Objective - Vital Signs/Intake and Output Vital Signs (last 24 hours): Temp Pulse Resp BP Pulse Ox 97.9 F 77 20 107/63 96 04/06/18 17:12 04/06/18 17:12 04/06/18 17:12 04/06/18 17:12 04/06/18 17:12 Intake and Output: 04/06/18 04/07/18 18:59 06:59 Intake Total 550 Balance 550 - Medications Medications: Current Medications Acetaminophen (Tylenol 325mg Tab) 650 mg PO Q6 PRN PRN Reason: Pain, moderate (4-7) Last Admin: 03/26/18 21:21 Dose: 650 mg Albuterol/Ipratropium (Duoneb 3 Mg/0.5 Mg (3 Ml) Ud) 3 ml INH RQ6 ANNELIESE Last Admin: 04/06/18 13:50 Dose: 3 ml Benzocaine/Menthol (Cepacol Sore Throat) 1 ishmael MT Q2H PRN PRN Reason: Sore Throat Last Admin: 04/02/18 17:25 Dose: 1 ishmael Gabapentin (Neurontin) 300 mg PO HS ANNELIESE Last Admin: 04/05/18 21:47 Dose: 300 mg Cefepime HCl (Maxipime Iv 1 Gm Premix) 1 gm in 50 mls @ 100 mls/hr IVPB Q12H ANNELIESE; Protocol Last Admin: 04/06/18 16:09 Dose: 100 mls/hr Azithromycin 500 mg/ Sodium (Chloride) 250 mls @ 250 mls/hr IVPB DAILY ANNELIESE; Protocol Last Admin: 04/06/18 10:09 Dose: 250 mls/hr Nystatin (Nystatin Oral Susp) 5 ml PO QID ANNELIESE Last Admin: 04/06/18 17:47 Dose: 5 ml Pantoprazole Sodium (Protonix Ec Tab) 40 mg PO DAILY ANNELIESE Last Admin: 04/06/18 10:10 Dose: 40 mg Pramipexole Dihydrochloride (Mirapex) 1 mg PO HS ANNELIESE Last Admin: 04/05/18 21:47 Dose: 1 mg Promethazine HCl/Codeine (Phenergan/Codeine Oral Syrup) 5 ml PO Q6 PRN PRN Reason: Cough Last Admin: 04/05/18 21:47 Dose: 5 ml - Labs Labs: 04/03/18 11:30 04/03/18 11:30 Assessment and Plan (1) Dyspnea Status: Acute (2) Pneumonia Status: Acute
--- NOTE | 2018-04-06 23:30 | CP.PCM.PN ---
Subjective - Date & Time of Evaluation Date of Evaluation: 04/06/18 Time of Evaluation: 07:00 - Subjective Subjective: dictated Objective - Vital Signs/Intake and Output Vital Signs (last 24 hours): Temp Pulse Resp BP Pulse Ox 97.9 F 77 20 107/63 96 04/06/18 17:12 04/06/18 17:12 04/06/18 17:12 04/06/18 17:12 04/06/18 17:12 Intake and Output: 04/06/18 04/07/18 18:59 06:59 Intake Total 550 450 Balance 550 450 - Medications Medications: Current Medications Acetaminophen (Tylenol 325mg Tab) 650 mg PO Q6 PRN PRN Reason: Pain, moderate (4-7) Last Admin: 03/26/18 21:21 Dose: 650 mg Albuterol/Ipratropium (Duoneb 3 Mg/0.5 Mg (3 Ml) Ud) 3 ml INH RQ6 ANNELIESE Last Admin: 04/06/18 19:20 Dose: 3 ml Benzocaine/Menthol (Cepacol Sore Throat) 1 ishmael MT Q2H PRN PRN Reason: Sore Throat Last Admin: 04/02/18 17:25 Dose: 1 ishmael Gabapentin (Neurontin) 300 mg PO HS ANNELIESE Last Admin: 04/06/18 21:22 Dose: 300 mg Cefepime HCl (Maxipime Iv 1 Gm Premix) 1 gm in 50 mls @ 100 mls/hr IVPB Q12H ANNELIESE; Protocol Last Admin: 04/06/18 16:09 Dose: 100 mls/hr Azithromycin 500 mg/ Sodium (Chloride) 250 mls @ 250 mls/hr IVPB DAILY ANNELIESE; Protocol Last Admin: 04/06/18 10:09 Dose: 250 mls/hr Nystatin (Nystatin Oral Susp) 5 ml PO QID ANNELIESE Last Admin: 04/06/18 21:22 Dose: 5 ml Pantoprazole Sodium (Protonix Ec Tab) 40 mg PO DAILY ANNELIESE Last Admin: 04/06/18 10:10 Dose: 40 mg Pramipexole Dihydrochloride (Mirapex) 1 mg PO HS ANNELIESE Last Admin: 04/06/18 21:22 Dose: 1 mg Promethazine HCl/Codeine (Phenergan/Codeine Oral Syrup) 5 ml PO Q6 PRN PRN Reason: Cough Last Admin: 04/05/18 21:47 Dose: 5 ml - Labs Labs: 04/03/18 11:30 04/03/18 11:30
[2018-04-07] MEDS: Albuterol-Ipratrop 3 mg / 0.5 (3 ml) UD INH SCH ×2 (01:34→07:50)
--- NOTE | 2018-04-07 02:15 | PN ---
DATE: 04/06/2018 SUBJECTIVE: The patient is for repeat CAT scan of the chest due to extensive nature of the infiltrate. The patient's repeat CAT scan shows infiltrates in right upper and right lower lobe with left lower lobe infiltrates as well. The patient is afebrile. Less short of breath, less hypoxic. No fever. PHYSICAL EXAMINATION VITAL SIGNS: Blood pressure 107/63, pulse 77, respiratory rate 20, temperature 97.9. LUNGS: Bilateral crackles. CARDIOVASCULAR SYSTEM: S1, S2 regular. ABDOMEN: Soft. ASSESSMENT: 1. Pneumonia. 2. Restless legs syndrome. PLAN: Antibiotics. CT chest. Pulmonary followup. Monitor the patient. James Houston MD
[2018-04-07] MEDS: Cefepime IV 1 gm in Dextrose 1 GM/50 ML BAG IVPB SCH (04:35)
[2018-04-07 07:58] VITALS: BP 103/61; PULSE 66; RESP 18; TEMP 97.7; O2SAT 96
[2018-04-07] MEDS: Pantoprazole 40 mg EC Tab PO SCH (09:28)
[2018-04-07] MEDS: Nystatin 100,000 Units/ml Oral Susp 5 ml UD PO SCH (09:28)
[2018-04-07] MEDS: Azithromycin 500 MG in Sodium Chloride 0.9% 250 ML IVPB SCH (10:12)
--- NOTE | 2018-04-07 11:39 | CP.PCM.PN ---
Subjective - Date & Time of Evaluation Date of Evaluation: 04/07/18 Time of Evaluation: 11:39 - Subjective Subjective: CHIEF COMPLAINTS TODAY : AFEBRILE, OFFERS NO COMPLAINTS comfortable ROS. HEENT : N. Resp : +VE COUGH, NO wheezing ,pleuritic CP ,or hemoptysis Cardio : No anginal CP, PND, orthopnea, palpitation GI : No abd.pain, n/v ,diarrhea or GI bleeding . 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 Musculoskel : No joint swelling , Derm : No rash Psych : Normal affect. Ext : No swelling ,calf pain PE. Pt. is alert awake in no distress. V.S As noted in the chart Head ,ear nose,throat and eyes : Normal. Neck : Supple with normal carotids. Lungs: RHONCHI B/L RT >LT Heart : S1 & S2 normal with S4. No murmur. Abd : Soft non tender with normal bowel sounds. Neuro : Moves all ext. with no localized deficit. Ext : No edema with intact pulses.Non tender calves Derm : No rashes or decubitus ulcer. LABS/RADIOLOGY: REPEAT CT CHEST REVIEWED. REPEAT CXR REVIEWED -- DENSE COSOLIDATION / ? MASS RUL SPUTUM POSITIVE FOR YEAST? COLONIZATION. ESR 120 QUANTIFERON GOLD TB TEST -VE -VE MRSA SCREEN - HIV 1/2 AB -VE -VE INFLU A/B AG -VE UR.AG . LEGIONELLA -VE MYCOPLASMA IGM : IMPRESSION; -MULTI LOBAR PNEUMONIA R/O ATYPICAL PNEUMONIA VS MALIGNANCY -EXACERBATION OF COPD- LEUKOPENIA -ARTHRITIS ( B/L KNEES ) -HYPERTENSION. 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 DC IV antibiotics By mouth Levaquin 500 mg once a day daily x 5 days Nystatin 5 mL swish and tid for 5 days. PATIENT TO FOLLOW-UP WITH pmd AND PULMONARY OUTPATIENT. Objective - Vital Signs/Intake and Output Vital Signs (last 24 hours): Temp Pulse Resp BP Pulse Ox 97.7 F 66 18 103/61 96 04/07/18 07:57 04/07/18 07:57 04/07/18 07:57 04/07/18 07:57 04/07/18 07:57 Intake and Output: 04/07/18 04/07/18 06:59 18:59 Intake Total 680 Balance 680 - Medications Medications: Current Medications Acetaminophen (Tylenol 325mg Tab) 650 mg PO Q6 PRN PRN Reason: Pain, moderate (4-7) Last Admin: 03/26/18 21:21 Dose: 650 mg Albuterol/Ipratropium (Duoneb 3 Mg/0.5 Mg (3 Ml) Ud) 3 ml INH RQ6 ANNELIESE Last Admin: 04/07/18 07:50 Dose: 3 ml Benzocaine/Menthol (Cepacol Sore Throat) 1 ishmael MT Q2H PRN PRN Reason: Sore Throat Last Admin: 04/02/18 17:25 Dose: 1 ishmael Gabapentin (Neurontin) 300 mg PO HS ANNELIESE Last Admin: 04/06/18 21:22 Dose: 300 mg Cefepime HCl (Maxipime Iv 1 Gm Premix) 1 gm in 50 mls @ 100 mls/hr IVPB Q12H ANNELIESE; Protocol Last Admin: 04/07/18 04:35 Dose: 100 mls/hr Azithromycin 500 mg/ Sodium (Chloride) 250 mls @ 250 mls/hr IVPB DAILY ANNELIESE; Protocol Last Admin: 04/07/18 10:12 Dose: 250 mls/hr Nystatin (Nystatin Oral Susp) 5 ml PO QID ANNELIESE Last Admin: 04/07/18 09:28 Dose: 5 ml Pantoprazole Sodium (Protonix Ec Tab) 40 mg PO DAILY ANNELIESE Last Admin: 04/07/18 09:28 Dose: 40 mg Pramipexole Dihydrochloride (Mirapex) 1 mg PO HS ANNELIESE Last Admin: 04/06/18 21:22 Dose: 1 mg Promethazine HCl/Codeine (Phenergan/Codeine Oral Syrup) 5 ml PO Q6 PRN PRN Reason: Cough Last Admin: 04/05/18 21:47 Dose: 5 ml - Labs Labs: 04/03/18 11:30 04/03/18 11:30 Assessment and Plan (1) Dyspnea Status: Acute (2) Pneumonia Status: Acute
--- NOTE | 2018-04-07 14:31 | CP.PCM.PN ---
<Milan Durant - Last Filed: 04/07/18 14:29> Subjective - Date & Time of Evaluation Date of Evaluation: 04/07/18 Time of Evaluation: 10:00 - Subjective Subjective: Patient was seen and examined at bedside this morning. Patient is resting comfortably and in no acute distress. Patient slept well overnight. Denies fevers, chills, chest pain, n/v or shortness of breath. no other complaints noted today. Exam: General: no acute distress, AAOx3, elderly, thin appearing Cardio: RRR, no murmurs, rubs or gallops Lungs: decreased breathing b/l, CTA b/L A&P: 1. Pneumonia. Patient clinically much improved and denies any symptoms - Chest CT 04/06: Greater degree of confluence of infiltrates in particular right upper lobe and right lower lobe. Similar less pronounced findings noted in left lower lobe. - CXR 04/03: Bilateral patchy infiltrates with more consolidative change in right upper lobe - switch to p.o. antibiotics as per infectious disease - Follow up out patient at my office in 2 weeks spoke with his partner at length and advised to get chest x-ray before office visit - Repeat chest CT in 2 weeks Objective - Vital Signs/Intake and Output Vital Signs (last 24 hours): Temp Pulse Resp BP Pulse Ox 97.7 F 66 18 103/61 96 04/07/18 07:57 04/07/18 07:57 04/07/18 07:57 04/07/18 07:57 04/07/18 07:57 Intake and Output: 04/07/18 04/07/18 06:59 18:59 Intake Total 680 Balance 680 - Labs Labs: 04/03/18 11:30 04/03/18 11:30 Assessment and Plan (1) Pneumonia Status: Acute <Vidal Zhu - Last Filed: 04/08/18 00:31> Objective - Vital Signs/Intake and Output Vital Signs (last 24 hours): Temp Pulse Resp BP Pulse Ox 97.7 F 66 18 103/61 96 04/07/18 07:57 04/07/18 07:57 04/07/18 07:57 04/07/18 07:57 04/07/18 07:57 - Labs Labs: 04/03/18 11:30 04/03/18 11:30 Assessment and Plan (1) Dyspnea Status: Acute (2) Pneumonia Status: Acute
--- NOTE | 2018-04-07 16:35 | CP.PCM.PN ---
Subjective - Date & Time of Evaluation Date of Evaluation: 04/07/18 Time of Evaluation: 16:36 - Subjective Subjective: alert, awake, no sob or cough. Objective - Vital Signs/Intake and Output Vital Signs (last 24 hours): Temp Pulse Resp BP Pulse Ox 97.7 F 66 18 103/61 96 04/07/18 07:57 04/07/18 07:57 04/07/18 07:57 04/07/18 07:57 04/07/18 07:57 Intake and Output: 04/07/18 04/07/18 06:59 18:59 Intake Total 680 Balance 680 - Labs Labs: 04/03/18 11:30 04/03/18 11:30 Assessment and Plan - Assessment and Plan (Free Text) Assessment: 83 year old male admitted with pneumonia, treated with IV antibiotics, seen and examined. Alert and orientedx3, ambulating well. No sob or chest pains. Discussed with DR Houston, plan to discharge home on levaquin and nystatin as per DR Zhu. Advised to follow up with DR Durant in 1 week for possible bronchoscopy as outpatient .
--- NOTE | 2018-04-07 23:07 | CP.PCM.DIS ---
Provider - Provider Date of Admission: 03/25/18 10:50 Attending physician: James Houston MD Consults: 03/25/18 14:31 Pulmonology Consult Routine Comment: Consulting Provider: Milan Durant Consulting Physician: Milan Durant Reason for Consult: pneumonia 03/26/18 18:52 Cardiology Consult Routine Comment: Consulting Provider: Bartolo Dodge Consulting Physician: Bartolo Dodge Reason for Consult: cp 03/31/18 13:41 Infectious Disease Consult Routine Comment: Consulting Provider: Vidal Zhu Consulting Physician: Vidal Zhu Reason for Consult: worsening infiltrate Time Spent in preparation of Discharge (in minutes): 30 Hospital Course - Lab Results Lab Results: Micro Results 04/01/18 15:26 Sputum Gram Stain - Final 04/01/18 15:26 Sputum Sputum Culture - Final Yeast Species 03/31/18 14:35 Naris MRSA Culture (Admit) - Final MRSA NOT DETECTED 03/25/18 10:19 Blood Blood Culture - Final NO GROWTH AFTER 5 DAYS 03/25/18 10:19 Blood Gram Stain - Final TEST NOT PERFORMED 03/25/18 10:07 Blood Blood Culture - Final NO GROWTH AFTER 5 DAYS 03/25/18 10:07 Blood Gram Stain - Final TEST NOT PERFORMED Most Recent Lab Values WBC 4.5 K/uL (4.8-10.8) L 04/03/18 11:30 RBC 4.18 Mil/uL (4.40-5.90) L 04/03/18 11:30 Hgb 12.4 g/dL (12.0-18.0) 04/03/18 11:30 Hct 36.3 % (35.0-51.0) 04/03/18 11:30 MCV 86.8 fL (80.0-94.0) 04/03/18 11:30 MCH 29.6 pg (27.0-31.0) 04/03/18 11:30 MCHC 34.1 g/dL (33.0-37.0) 04/03/18 11:30 RDW 13.4 % (11.5-14.5) 04/03/18 11:30 Plt Count 286 K/uL (130-400) 04/03/18 11:30 MPV 8.9 fL (7.2-11.7) 04/03/18 11:30 Neut % (Auto) 74.5 % (50.0-75.0) 04/03/18 11:30 Lymph % (Auto) 13.3 % (20.0-40.0) L 04/03/18 11:30 Ralls % (Auto) 7.2 % (0.0-10.0) 04/03/18 11:30 Eos % (Auto) 3.9 % (0.0-4.0) 04/03/18 11:30 Baso % (Auto) 1.1 % (0.0-2.0) 04/03/18 11:30 Neut # (Auto) 3.4 K/uL (1.8-7.0) 04/03/18 11:30 Lymph # (Auto) 0.6 K/uL (1.0-4.3) L 04/03/18 11:30 Ralls # (Auto) 0.3 K/uL (0.0-0.8) 04/03/18 11:30 Eos # (Auto) 0.2 K/uL (0.0-0.7) 04/03/18 11:30 Baso # (Auto) 0.1 K/uL (0.0-0.2) 04/03/18 11:30 Neutrophils % (Manual) 87 % (50-75) H 03/25/18 10:07 Lymphocytes % (Manual) 5 % (20-40) L 03/25/18 10:07 Monocytes % (Manual) 8 % (0-10) 03/25/18 10:07 Platelet Estimate Normal (NORMAL) 03/25/18 10:07 RBC Morphology Normal 03/25/18 10:07 ESR 120 mm/hr (0-15) H 04/01/18 07:10 Sodium 137 mmol/L (132-148) 04/03/18 11:30 Potassium 3.8 mmol/L (3.6-5.2) 04/03/18 11:30 Chloride 100 mmol/L (98-107) 04/03/18 11:30 Carbon Dioxide 32 mmol/L (22-30) H 04/03/18 11:30 Anion Gap 8 (10-20) L 04/03/18 11:30 BUN 15 mg/dL (9-20) 04/03/18 11:30 Creatinine 0.7 mg/dL (0.8-1.5) L 04/03/18 11:30 Est GFR ( Amer) > 60 04/03/18 11:30 Est GFR (Non-Af Amer) > 60 04/03/18 11:30 Random Glucose 152 mg/dL (75-110) H D 04/03/18 11:30 Calcium 8.5 mg/dl (8.6-10.4) L 04/03/18 11:30 Total Bilirubin 0.4 mg/dL (0.2-1.3) 04/01/18 07:10 Direct Bilirubin 0.4 mg/dL (0.0-0.4) 04/01/18 07:10 AST 38 U/L (17-59) 04/01/18 07:10 ALT 69 U/L (21-72) 04/01/18 07:10 Alkaline Phosphatase 72 U/L (38-126) 04/01/18 07:10 C-React Prot High Sens > 15.00 mg/L (1.00-3.00) H 04/01/18 07:10 NT-Pro-B Natriuret Pep 293 pg/mL (0-900) 03/27/18 07:01 Total Protein 6.7 g/dL (6.3-8.3) 04/01/18 07:10 Albumin 3.3 g/dL (3.5-5.0) L 04/01/18 07:10 Globulin 3.3 gm/dL (2.2-3.9) 04/01/18 07:10 Albumin/Globulin Ratio 1.0 (1.0-2.1) 04/01/18 07:10 Urine Color Evelyn (YELLOW) 03/25/18 10:07 Urine Clarity Clear (Clear) 03/25/18 10:07 Urine pH 5.0 (5.0-8.0) 03/25/18 10:07 Ur Specific Badger 1.024 (1.003-1.030) 03/25/18 10:07 Urine Protein 1+ mg/dL (NEGATIVE) H 03/25/18 10:07 Urine Glucose (UA) Normal mg/dL (Normal) 03/25/18 10:07 Urine Ketones Negative mg/dL (NEGATIVE) 03/25/18 10:07 Urine Blood 1+ (NEGATIVE) H 03/25/18 10:07 Urine Nitrate Negative (NEGATIVE) 03/25/18 10:07 Urine Bilirubin Negative (NEGATIVE) 03/25/18 10:07 Urine Urobilinogen 4.0 mg/dL (0.2-1.0) 03/25/18 10:07 Ur Leukocyte Esterase Neg Ela/uL (Negative) 03/25/18 10:07 Urine WBC (Auto) 8 /hpf (0-5) H 03/25/18 10:07 Urine RBC (Auto) 5 /hpf (0-3) H 03/25/18 10:07 Urine Bacteria Rare (<OCC) 03/25/18 10:07 Absolute Lymphs (Flow) 924 Cells/mcL (850-3900) 04/02/18 08:10 % CD4 Cells 36 Percent (30-61) 04/02/18 08:10 Absolute CD4 Count 334 Cells/mcL (490-1740) L 04/02/18 08:10 T-Help/Suppress Ratio 1.27 Ratio (0.86-5.00) 04/02/18 08:10 % CD8 Cells 29 Percent (12-42) 04/02/18 08:10 Absolute CD8 Count 264 Cells/mcL (180-1170) 04/02/18 08:10 Bordetella pertussis Spec Source Cancelled 04/02/18 08:10 B. pertussis DNA (PCR) Cancelled 04/02/18 08:10 B.parapertussis DNA PCR Cancelled 04/02/18 08:10 HIV 1&2 Antibody Screen Negative (NEGATIVE) 04/02/18 08:10 Influenza Typ A,B (EIA) Negative for flu a/b (NEGATIVE) 03/31/18 14:35 Influenza Type A Ab >=1:512 titer (<1:8) H 04/01/18 07:10 Influenza Type B Ab <1:8 titer (<1:8) 04/01/18 07:10 Ur L.pneumophila Ag Negative (NEGATIVE) 03/31/18 15:05 Mycoplasma pneumon IgG <=0.90 (<=0.90) 03/27/18 14:14 Mycoplasma pneumon IgM 27 U/mL (<770) 03/27/18 14:14 Ur Strep pneumoniae Ag Not detected (Not Detected) 03/31/18 15:05 TB Test (QFT) Nil 0.07 IU/mL 03/29/18 06:40 TB Test Mitogen - Nil 3.19 IU/mL 03/29/18 06:40 TB Test Antigen - Nil 0.00 IU/mL 03/29/18 06:40 TB Test TB - Nil 0.01 IU/mL 03/29/18 06:40 TB Test (QFT) Negative (Negative) 03/29/18 06:40 Discharge Exam - Head Exam Head Exam: ATRAUMATIC, NORMAL INSPECTION Discharge Plan - Discharge Medications Prescriptions: Levofloxacin [Levaquin] 500 mg PO DAILY #5 tablet Gabapentin [Neurontin] 300 mg PO HS #30 cap Nystatin [Nystatin Oral Susp] 5 ml PO QID 5 Days udc Pantoprazole [Protonix EC Tab] 40 mg PO DAILY #15 ect - Follow Up Plan Condition: GOOD Disposition: HOME/ ROUTINE Instructions: Levofloxacin (Systemic), Nystatin (Oral), Pneumonia, Adult (DC), Shortness of Breath (Dyspnea) (DC), Gabapentin, Pantoprazole Additional Instructions: levaquin 500mg po dailyx5 days nystatin 5ml qidx5 daysfollow up with PMD in 1 week follow up with DR Durant in 1 week Referrals: James Houston MD [Staff Provider] -
--- NOTE | 2018-04-09 19:53 | DS ---
DISCHARGE DIAGNOSES: 1. Pneumonia. 2. Restless legs syndrome. HISTORY OF PRESENT ILLNESS: This is an 83-year-old male well known to me with a history of restless legs syndrome. He came in because of cough, congestion, shortness of breath, and he was found to have a large pneumonia. He was started on antibiotic. He did not respond. ID consult was requested. The patient was started on vancomycin as well. The patient had a CAT scan and then the repeat CAT scan showed some improvement. Sputum and blood culture did not grow anything significant. The patient is feeling better. He is for discharge. CONDITION UPON DISCHARGE: Stable. LABORATORY DATA: WBC 4.5, hemoglobin 12.4, hematocrit 36.3, platelets 286. Sodium 137, potassium 3.8, chloride 101, bicarb 32, BUN 15, creatinine 0.7. The patient is HIV negative. The patient is being discharged. He will need outpatient followup with me and Pulmonary. James Houston MD
== END 2018-04-07 14:07 | disposition home or self-care (01) | DRG 194 ==
LOC: C.ER 08:18 → C.9E 10:50 → C.3T 15:49
PROVIDERS: ADMIT Internal Medicine; ATTEND Internal Medicine
DX: J18.1 Lobar pneumonia, unspecified organism (principal); J44.0 Chronic obstructive pulmonary disease with (acute) lower respiratory infection; J98.11 Atelectasis; J44.1 Chronic obstructive pulmonary disease with (acute) exacerbation; J98.09 Other diseases of bronchus, not elsewhere classified; G25.81 Restless legs syndrome; I10 Essential (primary) hypertension; M54.5 Low back pain; M17.0 Bilateral primary osteoarthritis of knee; E86.0 Dehydration; R09.02 Hypoxemia; Z82.5 Family history of asthma and other chronic lower respiratory diseases

== ENCOUNTER 2018-04-11 09:49 | Outpatient (CLI) | payer MEDICARE | END 2018-04-11 09:50 | disposition home or self-care (01) | LOC: C.RADIC 09:49 ==